=== PATIENT | male | born 1965 | race Caucasian/White ===

== ENCOUNTER 2020-02-15 15:36 | Observation (INO) | payer OTHER, SELFPAY ==
--- NOTE | ~2020-02-15 | XR_ITS ---
EXAMINATION: XR chest 1V portable DATE: 02/15/2020 16:49 INDICATION: COPD. Hypoxia and shortness of breath. TECHNIQUE: frontal view of the chest was obtained. COMPARISON: Chest radiograph dated 09/15/2014 FINDINGS: The lungs remain clear with no focal airspace opacities, pulmonary edema, pleural effusion or pneumot horax. The cardiomediastinal silhouette is normal. Calcified left axillary lymph node consistent with old granulomatous disease. IMPRESSION: 1. No acute cardiopulmonary disease. Reviewed, dictated and finalized at location A. OP APPLICATION DEVELOPER
[2020-02-15 15:44] VITALS: BP 173/94; PULSE 82; RESP 30; TEMP 36.7; O2SAT 100
--- NOTE | 2020-02-15 16:08 | ED.SOB ---
HPI - SOB/Dyspnea General Chief Complaint: Shortness of Breath/Dyspnea Stated Complaint: DIFFICULTY BREATHING Time Seen by Provider: 02/15/20 15:50 Source: patient, EMS, RN notes reviewed and old records reviewed Limitations: no limitations History of Present Illness HPI Narrative: 54-year-old male presents to emergency department for shortness of breath for the past week. Patient states he has felt like this in the past before, unknown cause. He has tried his inhalers at home to help. Patient does have a history of COPD. He has reports some chest tightness. No fever or chills. He does report some runny nose for the past week. No abdominal pain. No nausea or vomiting. Per EMS, patient was satting in the 80s, placed on CPAP with improvement. Related Data Home Medications Medication Instructions Recorded Confirmed albuterol sulfate 1 puff INHALATION PRN PRN 02/15/20 02/15/20 alprazolam 0.5 mg PO TID PRN 02/15/20 02/15/20 aspirin [Adult Aspirin] 81 mg PO DAILY 02/15/20 02/15/20 Allergies Allergy/AdvReac Type Severity Reaction Status Date / Time fexofenadine Allergy Severe Anaphylaxis Verified 02/15/20 19:02 PARMESEAN CHEESE Allergy Intermediate Hives Uncoded 02/15/20 19:41 Review of Systems Review of Systems: Narrative: CONSTITUTIONAL: Denies fever, chills, or sweats. EYES: Denies visual changes, redness, or discharge. ENT: Denies rhinorrhea, congestion, sore throat, or otalgia. CARDIOVASCULAR: Denies chest pain, palpitations, or edema. RESPIRATORY: Denies cough or dyspnea. GASTROINTESTINAL: Denies abdominal pain, nausea, vomiting, or diarrhea. GENITOURINARY: Denies dysuria or hematuria. SKIN: Denies rash or itching. MUSCULOSKELETAL: Denies back pain, joint pain, or myalgia. NEUROLOGIC: Denies headache, numbness, dizziness, or weakness. PSYCHIATRIC: Denies anxiety or depression. All systems reviewed & are unremarkable except as noted in HPI and below (ROS) [facility], LAT[facility] Family History Family History Father Hypertension Mother Hypertension Family history of diabetes mellitus in first degree relative Grandparent Family history of heart disease in male family member before age 55 Social History Social History Smoking packs per day: 1 Smoking cigarettes per day: 20.0 Years smoked: 3 Smoking pack-years: 3.00 Smoking status: Former smoker Second hand tobacco smoke exposure: Yes Smoking end date: 04/13/11 Alcohol intake: current Drinks per week: 1 Substance use: never Other substance usage details: Used to drink half gallon of whiskey a day before my 4 yr ago. Gender identity (if verbalized by the patient): Male Spiritual care concerns: No Exam Narrative: Exam Narrative: GENERAL: Well-appearing, well-nourished. Mild distress HEAD: Normocephalic, atraumatic. EYES: PERRLA and EOMI. ENT: Nares clear, no rhinorrhea or epistaxis. Mucous membranes moist. NECK: Supple. CHEST: Mild respiratory distress, bilateral wheezing. Tachypnea present HEART: Regular rate and rhythm. No murmur heard. Normal peripheral pulses. ABDOMEN: Soft, nontender, nondistended, normal active bowel sounds. EXTREMITIES: Normal range of motion. No edema. SKIN: Warm, dry, no rash. NEURO: No focal deficits. Alert and oriented x3. PSYCH: Normal mood and affect. Course Reevaluation(s) Reevaluation #1: 1710 - re-evaluated pt, breathing improved but patient still wheezing. Patient benefit from observation for further breathing treatments. Consultations Consultation #1: 1713 - discussed case with Hiliary, accepts admission for Dr. Lake Vital Signs Vital signs: Vital Signs Temperature 36.7 C 02/15/20 15:44 Pulse Rate 82 02/15/20 15:44 Respiratory Rate 30 H 02/15/20 15:44 Blood Pressure 173/94 H 02/15/20 15:44 Pulse Oximetry 100 02/15/20 15:44 Temperature 36.1 C L 02/15/20 22:00
[2020-02-15 16:26] LABS: Basophils Absolute Auto 0.1 K/mm3 (0.0-0.1); Basophils Percent Auto 0.7 % (0.2-1.2); Eosinophils Absolute Auto 0.5 K/mm3 (0-0.3); Eosinophils Percent Auto 6.8 % (0-4.4); Hematocrit 47.4 % (42.0-52.0); Hemoglobin 16.2 g/dL (14.0-18.0); Immature Granulocyte Absolute 0.02 K/mm3 (0.00-0.031); Immature Granulocyte Percent A 0.3 % (0-0.5); Lymphocytes Absolute Auto 2.23 K/mm3 (0.9-3.2); Lymphocytes Percent Auto 32.5 % (18.3-44.2); Mean Corpuscular HGB Conc 34.2 g/dl (32-36); Mean Corpuscular Hemoglobin 28.8 pg (26-34); Mean Corpuscular Volume 84.3 fl (80-100); Mean Platelet Volume 11.1 fl (7.4-10.4); Monocytes Absolute Auto 0.7 K/mm3 (0.1-0.6); Monocytes Percent Auto 9.9 % (2.6-8.5); Neutrophils Absolute Auto 3.4 K/mm3 (1.3-6.7); Neutrophils Percent Auto 49.8 % (45.5-73.1); Platelet Count Result 158 k/mm3 (150-375); Red Blood Count 5.62 M/mm3 (4.6-6.20); Red Cell Distribution Width 13.1 % (11.5-14.5); White Blood Count 6.9 K/mm3 (4.5-10.0)
[2020-02-15] MEDS: ONDANSETRON INJ 4 MG/2 ML VIAL IV PUSH (16:27)
[2020-02-15] MEDS: methylPREDNISolone SOD SUCC 125 MG VIAL 80 MG IV PUSH (16:27)
[2020-02-15] MEDS: IPRATROPIUM BR 0.02% INH SOLN 0.5 MG/2.5 ML VIAL INHALATION (16:34)
[2020-02-15] MEDS: ALBUTEROL SULFATE NEB 2.5 MG/0.5 ML INH 10 MG INHALATION (16:34)
[2020-02-15 16:36] VITALS: PULSE 82; RESP 30
[2020-02-15 16:37] LABS: Alanine Aminotransferase 23 U/L (4-50); Albumin Level 4.4 g/dL (3.5-5.1); Alkaline Phosphatase 51 U/L (38-126); Anion Gap 8 mmol/L (8-16); Aspartate Amino Transferase 28 U/L (17-59); Bilirubin,Total 0.4 mg/dL (0.2-1.3); Blood Urea Nitrogen 14 mg/dL (9-20); Calcium 9.3 mg/dL (8.4-10.2); Carbon Dioxide 34 mmol/L (22-30); Chloride 101 mmol/L (98-107); Estimated CRCL calculation 78 ml/min; Estimated Glomerular Filt Rate > 60; Glucose 129 mg/dL (75-110); Potassium 3.8 mmol/L (3.4-5.0); Sodium 143 mmol/L (137-145)
[2020-02-15 16:49] LABS: NT Pro B Type Natriuretic Pept 79 PG/ML (5-100); Troponin I < 0.012 ng/mL (0.000-0.034)
[2020-02-15 18:06] VITALS: BP 134/78; PULSE 91; RESP 18; O2SAT 94
--- NOTE | 2020-02-15 18:53 | PC.NURSE ---
This patient, Tenzin Vitale, was admitted to Medical Room 349-01. Patient/family oriented to hospital policies and general routines including ID bracelet, bed and alarms, visiting hours, pain management, procedures, bathroom and other care routines, personal items, smoking policy, room service/diet, and visiting hours. Information on how to activate the Rapid Response Team has been discussed. Patient/Family are encouraged to report perceived risks to care and to ask questions if they do not understand what they are told or what they should do.
[2020-02-15 19:02] VITALS: BP 144/64; PULSE 73; RESP 20; TEMP 36.1; O2SAT 99; BMI 29.7
[2020-02-15 20:00] VITALS: O2SAT 98
[2020-02-15 22:00] VITALS: BP 130/74; PULSE 67; RESP 16; TEMP 36.1; O2SAT 97
[2020-02-16 04:20] VITALS: BP 144/68; PULSE 65; RESP 20; TEMP 36.1; O2SAT 100
--- NOTE | 2020-02-16 05:18 | PM.IMHP ---
H&P: HPI History of Present Illness Date/Time: 02/16/20 05:18 Chief complaint: COPD exacerbation Narrative: Tenzin Vitale is a 54 year old male with past medical history of COPD, anxiety, bicuspid aortic valve presents to the ED with complaints of dyspnea. 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 He states he rarely uses his rescue inhaler Last use was 6 months ago. He denies fever, chills, nausea, vomiting, diarrhea. He denies sick contacts or recent travels. He denies allergies. He thinks a precipitating event was a woman with strong perfume walked past him triggering his COPD. He quit smoking 5 years ago when his . In the ED: Patient was given Solu-Medrol 80 mg, Zofran 4 mg, ipratropium /albuterol with good relief. Patient was admitted for COPD exacerbation. Review of Systems Review of Systems: Narrative: Constitutional: No Fever, No Chills, No Night Sweats, No Fatigue, No Malaise ENT/Mouth: No Hearing Changes, No Ear Pain, No Nasal Congestion, No Sinus Pain, No Hoarseness, No sore throat, No Rhinorrhea, No Swallowing Difficulty Eyes: No Eye Pain, No Redness, No Vision Changes Cardiovascular: No Chest Pain, No Palpitations, No Dyspnea on Exertion, No Orthopnea, No Claudication, No Edema Respiratory: Endorses wheezing, dyspnea. Denies coughm Gastrointestinal: No Nausea, No Vomiting, No Diarrhea, No Constipation, No Abdominal Pain, No Heartburn, No Hematochezia, No Melena Genitourinary: No Dysuria, No Urinary Frequency, No Hematuria, No Urinary Incontinence, No Urgency Musculoskeletal: No Arthralgias, No Myalgias, No Joint Swelling, No Joint Stiffness, No Back Pain Skin: No Skin Lesions, No Pruritis, No Hair Changes Neuro: No Weakness, No Numbness, No Paresthesias, No Loss of Consciousness, No Syncope, No Dizziness, No Headache Psych: No Anxiety/Panic, No Depression, No Insomnia Heme: No Bruising, No Bleeding Lymph: No Adenopathy Endocrine: No Polyuria, No Polydipsia, No Temperature Intolerance PMFSH Past Medical History Medical History (Updated 02/16/20 @ 05:39 by Yusef Rivera DO) Anxiety Bicuspid aortic valve COPD (chronic obstructive pulmonary disease) Surgical History Surgical History (Updated 02/16/20 @ 05:40 by Yusef Rivera DO) Status post carpal tunnel release of both wrists Status post inguinal hernia repair Family History Family History Father Hypertension Mother Hypertension Family history of diabetes mellitus in first degree relative Grandparent Family history of heart disease in male family member before age 55 Social History Social History (Updated 02/16/20 @ 05:41 by Yusef Rivera DO) Social History: , now working 16 hours a day Thursday through Thursday Smoking packs per day: 1 Smoking cigarettes per day: 20.0 Years smoked: 3 Smoking pack-years: 3.00 Smoking status: Former smoker Second hand tobacco smoke exposure: Yes Smoking end date: 04/13/11 Alcohol intake: current Drinks per week: 1 Substance use: never Other substance usage details: Used to drink half gallon of whiskey a day before my 4 yr ago. Living arrangements: alone Gender identity (if verbalized by the patient): Male Spiritual care concerns: No Meds Home Medications and Allergies Home Medications Medication Instructions Recorded Confirmed Type budesonide-formoterol HFA 80 2 puff INHALATION Q12H #10.2 gm 12/26/19 02/15/20 Rx mcg-4.5 mcg/actuation aerosol inhaler albuterol sulfate 1 puff INHALATION PRN PRN 02/15/20 02/15/20 History alprazolam 0.5 mg PO TID PRN 02/15/20 02/15/20 History aspirin [Adult Aspirin] 81 mg PO DAILY 02/15/20 02/15/20 History Allergies Allergy/AdvReac Type Severity Reaction Status Date / Time fexofenadine Allergy Severe Anaphylaxis Verified 02/15/20 19:02 SARBJIT
[2020-02-16] MEDS: methylPREDNISolone SOD SUCC 40 MG VIAL IV PUSH ×3 (06:36→23:59)
[2020-02-16] MEDS: ALBUTEROL SULFATE (*SP) AEROSOL 1 PUFF 2 PUFF INHALATION ×4 (07:47→21:15)
[2020-02-16 08:10] VITALS: O2SAT 98
[2020-02-16] MEDS: ENOXAPARIN 40 MG/0.4 ML SYRINGE SUB-Q (08:11)
[2020-02-16] MEDS: ASPIRIN 81 MG CHEWABLE TABLET PO (08:11)
[2020-02-16] MEDS: AZITHROMYCIN 250 MG TABLET 500 MG PO (08:40)
[2020-02-16 12:12] VITALS: PULSE 68; O2SAT 98
--- NOTE | 2020-02-16 12:12 | PC.NURSE ---
Patient discussed code status changes with transplant case manager; Karishma notified. Patient requests to continue confidential status, however, is witnessed on his cell phone continuously during rounds.
--- NOTE | 2020-02-16 12:22 | PCRCNOTE ---
pt did not receive spirva at 0747 due to med not available yet. Other inhalers given.
--- NOTE | 2020-02-16 12:59 | PM.IMPN ---
Progress Note: A&P Assessment and Plan (1) COPD exacerbation: Code(s): J44.1 - Chronic obstructive pulmonary disease with (acute) exacerbation Status: Acute Assessment and Plan: He has a hx of COPD but rarely uses his rescue inhaler. He ran out of his symbicort 3-4 days ago. He reported onset of dyspnea for 1 week which was worsening. He noted that he thinks smelling strong perfume precipitated this episode. He has a 40 pack-year smoking hx but quit smoking 5 years ago when his . Clinical presentation is consistent with COPD exacerbation. CXR showed no evidence of consolidation or other acute process. He has significant wheezing throughout the lungs. He already feels much better. Dyspnea has resolved and he was ambulating in the room without difficulty. He was weaned from 4 liters to 2 liters. Plan to continue IV solu-medrol. Will taper to 40mg q6hr. Continue azithromycin. Continue albuterol and add spiriva. Add mucinex. Continue supplemental oxygen as needed to maintain oxygen saturation>90%. Wean as tolerated. (2) Acute respiratory failure with hypoxia: Code(s): J96.01 - Acute respiratory failure with hypoxia Status: Acute Assessment and Plan: Secondary to COPD exacerbation. He was requiring 4 liters initially and has already been weaned to 2 liters. He notes that his dyspnea has improved significantly. Continue treatment of COPD exacerbation with plan as above. Continue supplemental oxygen as needed to maintain SpO2 >90%. Wean as tolerated. (3) Anxiety: Code(s): F41.9 - Anxiety disorder, unspecified Status: Inactive Assessment and Plan: Continue home alprazolam as needed. Subjective Date/time seen: 02/16/20 12:59 Mr. Vitale is a very pleasant 54 y.o. male with PMH significant for COPD, bicuspid aortic valve, and anxiety who is seen in follow-up for COPD exacerbation. He feels much better today. He notes that he was ambulating in the room and showered and dyspnea was significantly improved. He reports intermittent cough approximately once per hour and tries to produce sputum but has been unable to thus far. He is not having subjective fever or chills. He denies chest pain. He is not having any nausea, vomiting, or abdominal pain. He is tolerating his diet. Bowels are regular. Review of Systems Review of Systems: All systems reviewed & are unremarkable except as noted in HPI and below Exam Narrative: Exam Narrative: General: Pleasant, well-developed, well-nourished 54 y.o. male lying semi-recumbent in bed in no acute distress. HEENT: Normocephalic and atraumatic. Oral mucosa moist. Cardiac: Regular rate and rhythm. S1 and S2 normal. Lungs: Tolerating 2 liters per nasal cannula without increased work of breathing and oxygen saturation of 97%. Lungs with diffuse inspiratory and expiratory wheezes. Abdomen: Bowel sounds normoactive. Abdomen soft, non-distended, and non-tender. Extremities: No lower extremity edema or calf tenderness. DP and PT 2+ bilaterally. Neurological: Alert and oriented x4. No focal neurological deficits noted to casual converstaion. Speech is clear. Skin: Warm and dry. Psychiatric: Very pleasant. Good judgment and insight. Affect cheerful. Objective Data Vital Signs Vital Signs: Vital Signs - 24 hr 02/15/20 15:44 02/15/20 16:36 02/15/20 18:06 Temperature 98.1 F Pulse Rate 82 82 91 Respiratory Rate 30 H 30 H 18 Blood Pressure 173/94 H 134/78 Pulse Oximetry 100 94 02/15/20 19:02 02/15/20 20:00 02/15/20 22:00 Temperature 97.0 F L 97 F L Pulse Rate 73 67 Respiratory Rate 20 16 Blood Pressure 144/64 H 130/74 Pulse Oximetry 99 98 97 02/16/20 04:20 02/16/20 08:10 02/16/20 12:12 Temperature 97 F L Pulse Rate 65 68 Respiratory Rate 20 Blood Pressure 144/68 H Pulse Oximetry 100 98 98 Intake/Output Intake/Output: Intake & Output 02/13/20 02/14/20 02/15/20 02/16/20 23:59 23:59 23:59 23
[2020-02-16 14:00] VITALS: BP 142/68; PULSE 79; RESP 18; TEMP 36.7; O2SAT 97
--- NOTE | 2020-02-16 14:39 | ECG_ITS ---
Measurements Intervals [place] Rate: 75 P: 64 [place]: 149 QRS: -8 QRSD: 88 T: 7 QT: 381 QTc: 427 Interpretive Statements SINUS RHYTHM BORDERLINE T WAVE ABNORMALITY- INFERIOR LEADS BASELINE ARTIFACT- AVF, V4 BORDERLINE ECG Electronically Signed On 02-16-2020 14:56:58 [employer] by Ta Borjas D.O.
[2020-02-16 20:00] VITALS: BP 140/88; PULSE 77; RESP 18; TEMP 36.4; O2SAT 96
[2020-02-16 21:20] VITALS: O2SAT 96
[2020-02-16] MEDS: guaiFENesin 12 HR 600 MG TABCR 1200 MG PO (22:37)
[2020-02-16] MEDS: ALPRAZolam (*CRX) 0.5 MG TABLET PO (23:59)
[2020-02-17 04:27] VITALS: BP 127/88; PULSE 65; RESP 16; TEMP 36.1; O2SAT 97
[2020-02-17 06:09] LABS: Hemoglobin 15.5 g/dL (14.0-18.0); Mean Corpuscular HGB Conc 34.4 g/dl (32-36); Mean Corpuscular Hemoglobin 29.4 pg (26-34); Mean Corpuscular Volume 85.4 fl (80-100); Mean Platelet Volume 11.6 fl (7.4-10.4); Platelet Count Result 145 k/mm3 (150-375); Red Blood Count 5.27 M/mm3 (4.6-6.20); White Blood Count 13.1 K/mm3 (4.5-10.0)
[2020-02-17] MEDS: methylPREDNISolone SOD SUCC 40 MG VIAL IV PUSH ×2 (06:09→13:04)
[2020-02-17 06:23] LABS: Anion Gap 6 mmol/L (8-16); Blood Urea Nitrogen 14 mg/dL (9-20); Calcium 9.4 mg/dL (8.4-10.2); Carbon Dioxide 29 mmol/L (22-30); Chloride 103 mmol/L (98-107); Estimated CRCL calculation 108 ml/min; Estimated Glomerular Filt Rate > 60; Glucose 169 mg/dL (75-110); Magnesium 2.3 mg/dL (1.6-2.3); Potassium 4.4 mmol/L (3.4-5.0); Sodium 138 mmol/L (137-145)
[2020-02-17] MEDS: ALBUTEROL SULFATE (*SP) AEROSOL 1 PUFF 2 PUFF INHALATION ×2 (07:29→11:21)
[2020-02-17 07:32] VITALS: O2SAT 92
[2020-02-17] MEDS: AZITHROMYCIN 250 MG TABLET PO (09:27)
[2020-02-17] MEDS: ENOXAPARIN 40 MG/0.4 ML SYRINGE SUB-Q (09:27)
[2020-02-17] MEDS: guaiFENesin 12 HR 600 MG TABCR 1200 MG PO (09:27)
[2020-02-17] MEDS: ASPIRIN 81 MG CHEWABLE TABLET PO (09:28)
--- NOTE | 2020-02-17 13:42 | PM.DS ---
DS: Admitting Diagnosis Admitting Diagnosis Admitting Diagnosis: COPD exacerbation DS: Discharge Diagnosis Discharge Diagnosis (1) COPD exacerbation: Code(s): J44.1 - Chronic obstructive pulmonary disease with (acute) exacerbation Status: Acute Assessment and Plan: Discharge Summary (Date of service 02/17/20): Mr. Vitale is a very pleasant 54 y.o. male with PMH significant for COPD, bicuspid aortic valve, and anxiety who presented to the emergency department with dyspnea for 1 week which was worsening. He has a hx of COPD but noted that he rarely uses his rescue inhaler prior to this acute episode. He ran out of his symbicort 3-4 days ago. He noted that he thinks smelling strong perfume precipitated this episode. He has a 40 pack-year smoking hx but quit smoking 5 years ago when his . Initial workup in the emergency department included CXR which showed no evidence of consolidation or other acute process. BMP showed CO2 34 and labs were otherwise unremarkable. He was treated with Solu-Medrol 80 mg, Zofran 4 mg, ipratropium /albuterol with good relief in the emergency department. He was admitted to the hospitalist under observation for COPD exacerbation. Solu-medrol was tapered and he was treated with azithromycin and bronchodilators. Wheezing resolved and he was ambulating in the room and halls without any shortness of breath. He was weaned from 4 liters to room air. He felt much better and requested to go home. He was discharged in stable condition on the afternoon of 02/17/20. He was advesd to continue a prednisone taper and finish his course of azithromycin. Worrisome signs and symptoms requiring return to the emergency department were discussed and he verbalized understanding. (2) Acute respiratory failure with hypoxia: Code(s): J96.01 - Acute respiratory failure with hypoxia Status: Acute Assessment and Plan: Secondary to COPD exacerbation. He required 4 liters initially and was weaned to room air. He had no further dyspnea and stated he felt better than he had in weeks. (3) Anxiety: Code(s): F41.9 - Anxiety disorder, unspecified Status: Inactive Assessment and Plan: Home alprazolam was continued as needed. DS: Summary Time Spent with Patient Time attestation: Total time spent providing and/or coordinating discharge services: 40 minutes Exam Narrative: Exam Narrative: Vitals at presentation: Temp Pulse Resp BP Pulse Ox 98.1 F 82 30 H 173/94 H 100 02/15/20 15:44 02/15/20 15:44 02/15/20 15:44 02/15/20 15:44 02/15/20 15:44 Vitals at discharge: Temp Pulse Resp BP Pulse Ox 96.9 F L 75 16 140/77 95 02/17/20 14:21 02/17/20 14:21 02/17/20 14:21 02/17/20 14:21 02/17/20 14:21 General: Pleasant, well-developed, and well-nourished 54 y.o. male up in the room walking around in no acute distress. HEENT: Normocephalic and atraumatic. Oral mucosa moist. Cardiac: Regular rate and rhythm. S1 and S2 normal. Lungs: On room air. Respirations even and non-labored without increased work of breathing. Lungs are clear to auscultation without wheezes, rhonchi, or rales. Abdomen: Bowel sounds are normoactive. Abdomen is soft, non-distended, and non-tender. Extremities: No lower extremity edema or calf tenderness. DP and PT 2+ bilaterally. Neurological: Alert. Exam non-focal. Speech is clear. Skin: Warm and dry. Psychiatric: Very pleasant. Good judgment and insight. DS: Data Data Completed and Pending Labs on day of discharge: Labs from last 24 hours 02/17/20 02/17/20 05:40 05:40 WBC 13.1 H RBC 5.27 Hgb 15.5 Hct 45.0 MCV 85.4 MCH 29.4 MCHC 34.4 RDW 13.0 Plt Count 14
[2020-02-17 13:50] VITALS: PULSE 88; O2SAT 95
[2020-02-17 13:55] VITALS: PULSE 112; O2SAT 92
[2020-02-17 14:05] VITALS: PULSE 84; O2SAT 95
--- NOTE | 2020-02-17 14:18 | PCRCNOTE ---
HOME O2 EVAL COMPLETE, NO REQUIREMENTS
[2020-02-17 14:21] VITALS: BP 140/77; PULSE 75; RESP 16; TEMP 36.1; O2SAT 95
== END 2020-02-17 15:20 | disposition home or self-care (01) ==
LOC: ANHED 17:27 → ANH3MED 18:16
PROVIDERS: Physician Assistant; Admitting Provider Internal Medicine; Emergency Provider Emergency Medicine; PCP Family Medicine; Visit Provider Family Medicine
DX: J44.1 Chronic obstructive pulmonary disease with (acute) exacerbation (principal); J96.01 Acute respiratory failure with hypoxia; F41.9 Anxiety disorder, unspecified; Q23.1 Congenital insufficiency of aortic valve; Z79.82 Long term (current) use of aspirin; Z79.899 Other long term (current) drug therapy; Z87.891 Personal history of nicotine dependence
CPT/HCPCS: 36415; 71045; 80048; 80053; 83735; 83880; 84484; 85025; 85027; 93005; 94618; 94640; 96372; 96374; 96375; 96376; 99285; A9270; G0378; J1650; J2405; J2920; J2930

== ENCOUNTER 2020-10-18 12:47 | Emergency (ER) | payer SELFPAY ==
[2020-10-18 12:50] VITALS: BP 152/87; PULSE 59; RESP 16; TEMP 36.9; O2SAT 99
[2020-10-18] MEDS: ASPIRIN 81 MG CHEWABLE TABLET 324 MG PO (13:00)
--- NOTE | 2020-10-18 13:00 | ED.WEAKNESS ---
HPI - Weakness General Chief complaint: Suspected CVA Stated complaint: POS stroke/slurring words/lt arm numbness Source: patient and RN notes reviewed Limitations: no limitations History of Present Illness HPI Narrative: The right-handed COPD patient -a ex-cigarette smoker/drinker/ pot smoker without regular doctor- presents with lateralizing weakness. Patient states he awoke with the onset of left-sided diffuse weakness and slurred speech; last known well was last evening and his partner says he is walking abnormally. No fever, injury, head?neck?abdominal pain; he does have left chest pain This was associated with left chest pain that was present there in the morning also that is sharp, lasted a half hour , radiates to his back, first onset approximately 12 hours ago that awoke him from sleep. No meds for HTN, HLD, AODM, he had stress test years ago that was noncontributory. Related Data Home Medications Medication Instructions Recorded Confirmed aspirin 81 mg PO DAILY 02/15/20 10/18/20 Allergies Allergy/AdvReac Type Severity Reaction Status Date / Time fexofenadine Allergy Severe Anaphylaxis Verified 10/18/20 14:09 Review of Systems Review of Systems: Narrative: The patient has been informed that they may have pre-hypertension or Hypertension based on a BP reading in the department. I recommend that the patient call the primary care provider listed on their discharge instructions or a physician of their choice this week to arrange follow up for further evaluation of possible pre-hypertension or Hypertension General/Constitutional: No weight loss,fever Eyes: N0: Redness,discharge Ears/Nose/Throat: No: Epistaxis,ear discharge Respiratory: Denies: Hemoptysis Gastrointestinal: No Vomiting, Bleeding-rectal Skin: No Lumps, eruption Neurologic: No Focal Weakness,Sz Hematologic: Denies: Petechiae/Purpura Psychiatric: No: Suicida ideationl All Other Systems: Reviewed and Negative [facility] Past Medical History Medical History (Updated 10/28/20 @ 17:15 by Ben Panchal MD) Anxiety Bicuspid aortic valve BMI 28.0-28.9,adult BMI 29.0-29.9,adult COPD (chronic obstructive pulmonary disease) Surgical History Surgical History Status post carpal tunnel release of both wrists Status post inguinal hernia repair Family History Family History (Updated 10/18/20 @ 18:25 by Keisha Edwards RN) Father Hypertension Mother Family history of diabetes mellitus in first degree relative Hypertension Acute myocardial infarction Chronic obstructive pulmonary disease Diabetes mellitus Grandparent Family history of heart disease in male family member before age 55 Cerebrovascular accident Sibling Diabetes mellitus Sibling Asthma Chronic obstructive pulmonary disease Social History Social History Social History: , now working 16 hours a day Thursday through Thursday Smoking packs per day: 1.5 Smoking cigarettes per day: 30.0 Years smoked: 40 Smoking pack-years: 60.00 Smoking status: Former smoker Tobacco type: cigarettes Second hand tobacco smoke exposure: Yes Smoking end date: 04/13/11 Alcohol intake: former Drinks per week: 1 Substance use: current Substance use type: marijuana and crack/cocaine Other substance usage details: Used to drink half gallon of whiskey a day before my 4 yr ago. Gender identity (if verbalized by the patient): Male Spiritual care concerns: No Comments At time of signature, agree with nursing past medical, surgical, social and family history. There is no relevant family history pertinent to the presenting complaint Exam Narrative: Exam Narrative: General Appearance: Obese, No distress, hemiparetic NIHSS score -6 EYE: PERRLA, Conjunctiva clear, EOMI Neurological: A&O x3, CN II-X intact EX cranial nerv
[2020-10-18 13:36] VITALS: O2SAT 99
== END 2020-10-18 13:05 | disposition short-term general hospital (02) ==
PROVIDERS: Emergency Provider Emergency Medicine; PCP Family Medicine
DX: I63.9 Cerebral infarction, unspecified (principal); R07.89 Other chest pain; Z87.891 Personal history of nicotine dependence; J44.9 Chronic obstructive pulmonary disease, unspecified; Z79.82 Long term (current) use of aspirin
CPT/HCPCS: A9270

== ENCOUNTER 2020-10-18 13:22 | Observation (INO) | payer OTHER, SELFPAY ==
--- NOTE | ~2020-10-18 | CT_ITS ---
EXAMINATION: CTA brain carotid EXAM DATE: 10/18/2020 14:34 INDICATION: Left side weakness, slurred speech . TECHNIQUE: Noncontrast head CT. Spiral CTA of the carotid arteries was performed with intravenous i njection 100 cc of Omnipaque 350. Axial, coronal, sagittal reformatted images reviewed. Additional r eformatted images created on dedicated 3-D workstation. NASCET comparable standard used to assess th e degree of arterial stenosis. Spiral CT angiogram cerebral arteries performed with the same intrave nous injection of contrast. Source images of the brain CTA transferred to dedicated workstation for 3 -D rotational image creation. Coronal, sagittal maximum intensity pixel images also reviewed. The d ose-length product (DLP) for this examination was 1844.25 mGy-cm. The exposure was tailored accordi ng to patient size, and iterative reconstruction (ASIR) was used as additional dose reduction techniq ue. There is no prior study for comparison. FINDINGS: Mild bilateral carotid bulb arterial sclerosis with 0% stenosis bilaterally. Mild bilateral carotid siphon arterial sclerosis without stenosis. Left vertebral artery dominant. There is no bustillos tid or vertebral basilar arterial dissection or fibromuscular dysplasia. There are no cerebral artery aneurysms. There is symmetric cerebral artery arborization. The sagittal, transverse and sigmoid sin uses enhance normally, no venous sinus thrombosis. Internal cerebral veins also enhance normally. There is no acute intraparenchymal hemorrhage. No evidence of intraparenchymal brain mass lesion. N o evidence of acute infarction. There is no mass effect or midline shift. There is no obstructive hyd rocephalus suspected. There are no extra-axial collections. Incidental Findings: Mild cervical spondylosis. IMPRESSION: 1. No acute carotid or intracranial findings. 2. Bilateral carotid 0% stenosis. Reviewed, dictated and finalized at location B.
--- NOTE | ~2020-10-18 | XR_ITS ---
EXAMINATION: XR chest 1V portable DATE: 10/18/2020 13:45 INDICATION: Chest pain. TECHNIQUE: A single frontal view of the chest was obtained. COMPARISON: Chest single view 02/15/2020 FINDINGS: The chest demonstrates clear lungs without pneumonia, pleural effusion, or pneumothorax. Th e heart size is normal. IMPRESSION: 1. No acute cardiopulmonary disease. Reviewed, dictated and finalized at location A.
--- NOTE | ~2020-10-18 | MR_ITS ---
EXAMINATION: MR brain/brain stem wo/w con EXAM DATE: 10/19/2020 10:15 INDICATION: Left side hemiparesis, slurred speech. TECHNIQUE: Magnetic resonance imaging (MRI) of the brain/brain stem obtained without contrast. Sagit van T1, axial diffusion, gradient echo (T2*), T1, T2, FLAIR sequences obtained. Patient was then inj ected with 18 cc intravenous Multihance contrast. Axial and coronal postcontrast T1 weighted sequence s obtained. There is no prior study for comparison. FINDINGS: There are no areas of restricted diffusion to suggest acute infarction. There is no acute hemorrhage seen on the T2*, a hemosiderin sensitive sequence. No intraparenchymal brain mass. The ve ntricles are normal in size. There are no extra-axial collections. Flow voids are seen in the cereb ral arteries on the T2-weighted sequences consistent with their expected patency. The orbits are unr emarkable. Soft tissue is unremarkable. There are no areas of abnormal enhancement on the postcont rast images. IMPRESSION: No acute intracranial findings. Reviewed, dictated and finalized at location B.
--- NOTE | 2020-10-18 12:59 | ECG_ITS ---
Measurements Intervals [place] Rate: 63 P: 66 [place]: 147 QRS: 12 QRSD: 97 T: 47 QT: 384 QTc: 395 Interpretive Statements SINUS RHYTHM INCOMPLETE RIGHT BUNDLE BRANCH BLOCK MINIMAL Q WAVES- HIGH LATERAL LEADS PEAKED T WAVES- CONSIDER HYPERKALEMIA OR ISCHEMIA BASELINE ARTIFACT- II, III, AVR, AVL, AVF ABNORMAL ECG Electronically Signed On 10-19-2020 15:58:16 CDT by Ta Borjas D.O.
[2020-10-18 13:34] VITALS: BP 157/99; PULSE 63; RESP 19; TEMP 37.1; O2SAT 98
--- NOTE | 2020-10-18 13:35 | ECG_ITS ---
Measurements Intervals [place] Rate: 59 P: 42 [place]: 157 QRS: -3 QRSD: 88 T: 32 QT: 384 QTc: 383 Interpretive Statements SINUS BRADYCARDIA INCOMPLETE RIGHT BUNDLE BRANCH BLOCK BORDERLINE T WAVE ABNORMALITY- INFERIOR LEADS BORDERLINE ECG Electronically Signed On 10-18-2020 15:29:12 CDT by Ta Borjas D.O.
--- NOTE | 2020-10-18 13:38 | ED.NEUROSD ---
HPI - Neuro Symptoms/Deficit General Chief Complaint: Suspected CVA Stated Complaint: CP/STROKE LIKE SYMPTOMS X 1 DAY Time Seen by Provider: 10/18/20 13:25 Source: patient and RN notes reviewed Mode of arrival: EMS Limitations: no limitations History of Present Illness HPI Narrative: This is a 55 year old male with history of COPD and anxiety who presents for evaluation of left side weakness and chest pain. Patient states he woke up this morning at 2 am with left chest pain, left leg and arm numbness. He also reports dizziness and nausea. He has continue to having intermittent left chest pain that radiates to his back. He states his pain last for 30 minutes and it has currently resolved. He also reports left arm weakness and left leg weakness with slurred speech. He was referred to ER today from [facility]. HE states his symptoms have improved . He states years ago he had similar symptoms that resolved so he was not evaluated. HE denies cardiac history. Related Data Home Medications Medication Instructions Recorded Confirmed aspirin 81 mg PO DAILY 02/15/20 10/18/20 Allergies Allergy/AdvReac Type Severity Reaction Status Date / Time fexofenadine Allergy Severe Anaphylaxis Verified 10/18/20 14:09 Review of Systems Review of Systems: Narrative: CONSTITUTIONAL: Denies fever, chills, or sweats. EYES: Denies visual changes, redness, or discharge. ENT: Denies rhinorrhea, congestion, sore throat, or otalgia. CARDIOVASCULAR: Denies palpitations, or edema. RESPIRATORY: Denies cough or dyspnea. GASTROINTESTINAL: Denies abdominal pain, vomiting, or diarrhea. GENITOURINARY: Denies dysuria or hematuria. SKIN: Denies rash or itching. MUSCULOSKELETAL: Denies back pain, joint pain, or myalgia. NEUROLOGIC: Positive for headache, numbness, and weakness. PSYCHIATRIC: Denies anxiety or depression. All systems reviewed & are unremarkable except as noted in HPI and below PMFSH Past Medical History Medical History Anxiety Bicuspid aortic valve BMI 28.0-28.9,adult BMI 29.0-29.9,adult COPD (chronic obstructive pulmonary disease) Surgical History Surgical History Status post carpal tunnel release of both wrists Status post inguinal hernia repair Family History Family History (Updated 10/18/20 @ 18:25 by Keisha Edwards RN) Father Hypertension Mother Family history of diabetes mellitus in first degree relative Hypertension Acute myocardial infarction Chronic obstructive pulmonary disease Diabetes mellitus Grandparent Family history of heart disease in male family member before age 55 Cerebrovascular accident Sibling Diabetes mellitus Sibling Asthma Chronic obstructive pulmonary disease Social History Social History Social History: , now working 16 hours a day Thursday through Thursday Smoking packs per day: 1.5 Smoking cigarettes per day: 30.0 Years smoked: 40 Smoking pack-years: 60.00 Smoking status: Former smoker Tobacco type: cigarettes Second hand tobacco smoke exposure: Yes Smoking end date: 04/13/11 Alcohol intake: former Drinks per week: 1 Substance use: current Substance use type: marijuana and crack/cocaine Other substance usage details: Used to drink half gallon of whiskey a day before my 4 yr ago. Gender identity (if verbalized by the patient): Male Spiritual care concerns: No Exam Narrative: Exam Narrative: GENERAL: Well-appearing, well-nourished, and in no acute distress. HEAD: Normocephalic, atraumatic EYES: PERRLA and EOMI, conjunctiva clear without discharge THROAT:Mucous membranes moist, Oropharynx normal without erythema, exudate, peritonsillar swelling or fluctuance NECK: Supple, without lymphadenopathy or mass RESPIRATORY: No respiratory distress, Air
[2020-10-18 13:53] LABS: Basophils Percent Auto 0.6 % (0.2-1.2); Eosinophils Absolute Auto 0.2 K/mm3 (0-0.3); Eosinophils Percent Auto 3.2 % (0-4.4); Hematocrit 51.3 % (42.0-52.0); Immature Granulocyte Absolute 0.03 K/mm3 (0.00-0.031); Immature Granulocyte Percent A 0.4 % (0-0.5); Lymphocytes Absolute Auto 1.41 K/mm3 (0.9-3.2); Lymphocytes Percent Auto 19.4 % (18.3-44.2); Mean Corpuscular HGB Conc 33.1 g/dl (32-36); Mean Corpuscular Hemoglobin 28.3 pg (26-34); Mean Corpuscular Volume 85.4 fl (80-100); Mean Platelet Volume 11.5 fl (7.4-10.4); Monocytes Absolute Auto 0.7 K/mm3 (0.1-0.6); Monocytes Percent Auto 9.4 % (2.6-8.5); Neutrophils Absolute Auto 4.9 K/mm3 (1.3-6.7); Platelet Count Result 167 k/mm3 (150-375); Red Blood Count 6.01 M/mm3 (4.6-6.20); White Blood Count 7.3 K/mm3 (4.5-10.0)
[2020-10-18 14:03] VITALS: BP 170/86; PULSE 66; PULSE 67; RESP 17; RESP 21; TEMP 36.8; O2SAT 100
[2020-10-18 14:03] LABS: Anion Gap 8 mmol/L (8-16); Blood Urea Nitrogen 11 mg/dL (9-20); Carbon Dioxide 29 mmol/L (22-30); Chloride 102 mmol/L (98-107); Estimated CRCL calculation 92 ml/min; Estimated Glomerular Filt Rate > 60; Glucose 103 mg/dL (75-110); Potassium 4.4 mmol/L (3.4-5.0); Sodium 139 mmol/L (137-145)
[2020-10-18 14:05] LABS: Prothrombin Time 13.2 Seconds (11.1-14.7)
[2020-10-18 14:06] LABS: Partial Thromboplastin Time 29.6 SECONDS (22.3-36.8)
[2020-10-18 14:15] LABS: Troponin I < 0.012 ng/mL (0.000-0.034)
[2020-10-18] MEDS: ASPIRIN 81 MG CHEWABLE TABLET 324 MG PO (15:34)
[2020-10-18 17:08] VITALS: BMI 29.5
[2020-10-18 17:09] VITALS: BP 149/135; PULSE 62; RESP 12; TEMP 36.6; O2SAT 100
[2020-10-18 18:00] VITALS: PULSE 96
[2020-10-18 18:47] LABS: Troponin I < 0.012 ng/mL (0.000-0.034)
[2020-10-18 20:00] VITALS: BP 139/70; PULSE 80; PULSE 90; RESP 13; TEMP 36.6; O2SAT 97
[2020-10-18 20:09] LABS: Troponin I < 0.012 ng/mL (0.000-0.034)
--- NOTE | 2020-10-18 22:41 | PM.IMHP ---
H&P: HPI History of Present Illness Date/Time: 10/18/20 22:41 Chief Complaint: Chest pain Narrative: This is a 55-year-old male past medical history significant for COPD / asthma, generalized anxiety disorder. Patient presented to the emergency room after he had an episode at around 3:00 a.m. in the morning when he woke up and he was drenched in sweat he had chest pain and numbness that lasted for a few minutes he decided to come to the emergency room later in the day. Patient has been his usual state of health issues however patient states that he has not been able to sleep more than 3-4 hours a day. He denies any shortness of breath cough sputum production fevers rigors or chills no dizziness no syncope no near syncope no lightheadedness no nausea no vomiting no diarrhea no abdominal pain. Patient is a former smoker but quit for years ago. He admitted to doing cocaine 4 days ago as well. Preliminary workup was essentially nonrevealing patient has been placed in observation status. Review of Systems Review of Systems: Narrative: CHEST PAIN AND RIGHT-SIDED ARM AND LEG NUMBNESS Constitutional: Constitutional: Denies chills, Reports difficulty sleeping, Denies fatigue, Denies fever(s), Denies lethargy, Denies malaise, Reports night sweats and Denies weakness Eyes: Eyes: Denies diplopia ENT: Denies nasal congestion, Denies nasal discharge and Denies nasal obstruction Cardiovascular: Cardiovascular: Reports chest pain at rest, Reports diaphoresis, Denies irregular heart rhythm, Denies claudication, Denies lightheadedness, Denies radiating jaw, neck or arm pain, Denies palpitations and Denies dyspnea Respiratory: Respiratory: Denies cough, Denies dyspnea and Denies wheezing Gastrointestinal: Gastrointestinal: Denies nausea and Denies vomiting Genitourinary: Genitourinary: Reports no additional male genitourinary complaints Musculoskeletal: Musculoskeletal: Reports no additional musculoskeletal complaints Integumentary/Breasts: Skin/Breast: Reports system reviewed and no additional complaints, except as docu Neurologic: Reports system reviewed and no additional complaints, except as documented Psychiatric: Psychiatric: Reports panic attacks Endocrine: Endocrine: Reports no additional endocrine complaints Hematologic/Lymphatic: Hematologic/Lymphatic: Reports no additional hematologic/lymphatic complaints Allergic/Immunologic: Allergic/Immunologic: Reports no additional allergic/immunologic complaints PMFSH Past Medical History Medical History Anxiety Bicuspid aortic valve BMI 28.0-28.9,adult BMI 29.0-29.9,adult COPD (chronic obstructive pulmonary disease) Surgical History Surgical History Status post carpal tunnel release of both wrists Status post inguinal hernia repair Family History Family History (Updated 10/18/20 @ 18:25 by Keisha Edwards RN) Father Hypertension Mother Family history of diabetes mellitus in first degree relative Hypertension Acute myocardial infarction Chronic obstructive pulmonary disease Diabetes mellitus Grandparent Family history of heart disease in male family member before age 55 Cerebrovascular accident Sibling Diabetes mellitus Sibling Asthma Chronic obstructive pulmonary disease Social History Social History Social History: , now working 16 hours a day Thursday through Thursday Smoking packs per day: 1.5 Smoking cigarettes per day: 30.0 Years smoked: 40 Smoking pack-years: 60.00 Smoking status: Former smoker Tobacco type: cigarettes Second hand tobacco smoke exposure: Yes Smoking end date: 04/13/11 Alcohol intake: former Drinks per week: 1 Substance use: current Substance use type: marijuana and crack/cocaine Other substance usage details: Used to drink half ga
[2020-10-18] MEDS: ALPRAZolam (*CRX) 0.5 MG TABLET PO (22:53)
[2020-10-19] VITALS (8 sets, daily range): BP systolic 119–146; BP diastolic 65–114; PULSE 50–122; RESP 13–22; TEMP 36.1–36.7; O2SAT 96–99
--- NOTE | 2020-10-19 | ECHO_ITS ---
Patient Info Name: Tenzin Vitale Age: 55 years : 1965 Gender: Male Ht: 70 in Wt: 213 lbs BSA: 2.21 m2 HR: 55 bpm BP: 128 / 85 mmHg Technical Quality: Good Exam Date: 10/19/2020 11:44 AM Exam Location: [facility] Pulmonary Exam Room: 213 Patient Status: Inpatient Admit Date: 10/18/2020 Staff Ordering Physician: Lupe Gaines MD Assistant Facility Manager: Mary Anne Gooden RDCS Attending Provider: Shelby Benjamin MD Referring Physician: Liana LUKE; Exam Type: CA echo doppler w bubble study Study Info Indications - TIA NUMBNESS SLURRED SPEECH Complete two-dimensional, color flow and Doppler transthoracic echocardiogram is performed with agitated saline. Contrast/Agitated Saline Contrast/Ag. Saline: Agitated Saline Amount: 20.00 ml Administered By: Carmen Villagran RN IV Access Condition: patent with no signs of infiltration Summary 1. Left ventricular chamber dimension is normal. 2. Left ventricular systolic function is normal, estimated at 65-70%. 3. The left ventricular diastolic function is abnormal. 4. E/e' 10 is mildly elevated. 5. There is mild to moderate aortic valve regurgitation. 6. There is trace mitral valve regurgitation. 7. No pulmonary hypertension, estimated pulmonary arterial systolic pressure is 37 mmHg. Left Ventricle E/e' 10 is mildly elevated. Left ventricular chamber dimension is normal. Left ventricular systolic function is normal, estimated at 65-70%. The left ventricular diastolic function is abnormal. Right Ventricle Right ventricular chamber dimension is normal. Right ventricular systolic function is normal. Left Atria Left atrial chamber dimension is normal. Right Atria Right atrial chamber dimension is normal. Atrial Septum Agitated saline injection with and without valsalva maneuver opacified right cardiac chambers without shunt to left cardiac chambers. Intact interatrial septum visualized by agitated saline imaging. Aortic Valve The aortic valve is trileaflet. There is no aortic valve stenosis. There is mild to moderate aortic valve regurgitation. Pulmonic Valve There is no pulmonic regurgitation. Mitral Valve There is no mitral valve stenosis. There is trace mitral valve regurgitation. Tricuspid Valve There is no tricuspid valve regurgitation. No pulmonary hypertension, estimated pulmonary arterial systolic pressure is 37 mmHg. Pericardium/Pleural There is no pericardial effusion. Inferior Vena Cava Normal inferior vena cava with >50% collapse upon inspiration consistent with normal right atrial pressure, 5 mmHg. Aorta The aortic root size at the sinus of Valsalva is normal. Left Ventricular Outflow Tract Name Value Normal LVOT 2D LVOT Diameter 2.1 cm LVOT Doppler LVOT Peak Gradient 5 mmHg LVOT Mean Gradient 2 mmHg LVOT VTI 22 cm LVOT VTI/AV VTI Ratio 0.7 LVOT Stroke Volume 73 ml LVOT CO
[2020-10-19] MEDS: ASPIRIN 81 MG ENTERIC TABLET PO (08:28)
[2020-10-19] MEDS: ESCITALOPRAM OXALATE 10 MG TABLET 20 MG PO (08:28)
[2020-10-19 09:32] LABS: Basophils Absolute Auto 0.1 K/mm3 (0.0-0.1); Basophils Percent Auto 0.9 % (0.2-1.2); Eosinophils Absolute Auto 0.3 K/mm3 (0-0.3); Hematocrit 51.4 % (42.0-52.0); Hemoglobin 16.9 g/dL (14.0-18.0); Immature Granulocyte Absolute 0.02 K/mm3 (0.00-0.031); Immature Granulocyte Percent A 0.4 % (0-0.5); Immature Platelet Fraction Pct 7.4 % (0.9-11.2); Lymphocytes Absolute Auto 1.55 K/mm3 (0.9-3.2); Lymphocytes Percent Auto 27.6 % (18.3-44.2); Mean Corpuscular HGB Conc 32.9 g/dl (32-36); Mean Corpuscular Hemoglobin 28.5 pg (26-34); Mean Corpuscular Volume 86.7 fl (80-100); Mean Platelet Volume 10.9 fl (7.4-10.4); Monocytes Absolute Auto 0.7 K/mm3 (0.1-0.6); Monocytes Percent Auto 11.6 % (2.6-8.5); Neutrophils Absolute Auto 3.1 K/mm3 (1.3-6.7); Neutrophils Percent Auto 54.5 % (45.5-73.1); Platelet Count Result 142 k/mm3 (150-375); Red Blood Count 5.93 M/mm3 (4.6-6.20); Red Cell Distribution Width 13.1 % (11.5-14.5); White Blood Count 5.6 K/mm3 (4.5-10.0)
[2020-10-19 09:38] LABS: Amphetamine Screen Urine Negative (Negative); Barbiturate Screen Urine Negative (Negative); Benzodiazepines Screen Urine Positive (Negative); Cannabinoid Screen Urine Negative (Negative); Cocaine Screen Urine Positive (Negative); Methadone Screen Urine Negative (Negative); Opiate Screen Urine Negative (Negative); Phencyclidine Screen Urine Negative (Negative)
[2020-10-19 09:43] LABS: Alanine Aminotransferase 20 U/L (4-50); Albumin Level 4.2 g/dL (3.5-5.1); Alkaline Phosphatase 56 U/L (38-126); Anion Gap 5 mmol/L (8-16); Aspartate Amino Transferase 23 U/L (17-59); Bilirubin,Total 0.6 mg/dL (0.2-1.3); Blood Urea Nitrogen 17 mg/dL (9-20); Calcium 9.3 mg/dL (8.4-10.2); Carbon Dioxide 34 mmol/L (22-30); Chloride 100 mmol/L (98-107); Estimated CRCL calculation 74 ml/min; Estimated Glomerular Filt Rate > 60; Glucose 99 mg/dL (75-110); Potassium 4.8 mmol/L (3.4-5.0); Sodium 139 mmol/L (137-145)
[2020-10-19] MEDS: ENOXAPARIN 40 MG/0.4 ML SYRINGE SUB-Q (10:55)
--- NOTE | 2020-10-19 15:51 | PM.DS ---
DS: Admitting Diagnosis Admitting Diagnosis Admitting Diagnosis: Chest pain, weakness and numbness DS: Discharge Diagnosis Discharge Diagnosis (1) Chest pain, atypical: Code(s): R07.89 - Other chest pain Status: Acute (2) Acute left-sided weakness: Code(s): R53.1 - Weakness Status: Acute (3) Anxiety: Code(s): F41.9 - Anxiety disorder, unspecified Status: Acute (4) BMI 29.0-29.9,adult: Code(s): Z68.29 - Body mass index [BMI] 29.0-29.9, adult Status: Acute (5) Depression: Qualifiers: Depression Type: unspecified Qualified Code(s): F32.9 - Major depressive disorder, single episode, unspecified Code(s): F32.9 - Major depressive disorder, single episode, unspecified Status: Acute (6) COPD (chronic obstructive pulmonary disease): Qualifiers: COPD type: unspecified COPD Qualified Code(s): J44.9 - Chronic obstructive pulmonary disease, unspecified Code(s): J44.9 - Chronic obstructive pulmonary disease, unspecified Status: Inactive (7) Bicuspid aortic valve: Code(s): Q23.1 - Congenital insufficiency of aortic valve Status: Acute DS: Summary Hospital Course Reason for hospitalization: chest pain and left-sided numbness Hospital Course: 55-year-old male with past history significant for COPD, depression, bicuspid aortic valve and hypertension presented with chest pain and left-sided arm and leg weakness and numbness. He also reported some slurring of speech. He was managed as a case of ACS rule out with concerns for possible stroke. For this reason received an EKG and troponin x2 which were noted to be negative. He also received a CTA of head and neck as well as an MRI which did not reveal any concerning findings of acute ischemia. Patient received an occluded read for which is still pending. However he requested that he could be discharged home and he will follow-up with his PCP regarding the read of the echo of the echo. Patient is being discharged with the understanding that he will need to follow-up with his PCP regarding results of the echo given his prior history of bicuspid aortic valve. Time Spent with Patient Time attestation: Total time spent providing and/or coordinating discharge services:> 30minutes Exam Const: General: cooperative HENMT: Head: normal to inspection Ears: hearing grossly normal bilaterally Face and sinus: normal facial exam Eyes: General: appearance normal, both eyes and all related structures Neck: Neck: normal visual inspection Chest: Chest palpation & inspection: normal inspection of the chest Resp: Effort & Inspection: normal respiratory effort Auscultation: clear to auscultation bilaterally Cardio: Jugular venous distension: no JVD Palpation: normal PMI Rate: regular rate Rhythm: regular rhythm and abnormal rhythm Heart sounds: S1 normal heart sound present and S2 normal heart sound present GI: Inspection: normal to inspection Percussion: Yes normal to percussion Auscultation: normal bowel sounds Back/Spine/Pelvis: Back: no CVA tenderness Skin: General skin exam: normal color and no rashes or lesions noted Neuro: General: patient oriented x3, gait normal and tone normal Extrem: General: normal to inspection, full ROM and capillary refill normal Psych: Appearance: grossly normal DS: Data Data Completed and Pending Labs on day of discharge: Labs from last 24 hours 10/19/20 10/19/20 10/19/20 09:14 09:14 08:54 WBC 5.6 RBC 5.93 Hgb 16.9 Hct 51.4 MCV 86.7 MCH 28.5 MCHC 32.9 RDW 13.1 Plt Count 142 L MPV 10.9 H Immature Gran % (Auto) 0.4 Neut % (Auto) 54.5 Lymph % (Auto) 27.6 [place] % (Auto) 11.6 H Eos % (Auto) 5.0 H Baso % (Auto) 0.9 Lymph # (Auto) 1.55 [place] # (Auto) 0.7 H Eos # (Auto) 0.3 Baso # (Auto) 0.1 Abs Immat Gran (auto) 0.02 Absolute Neuts (auto) 3.1 Absolute Nucleated
== END 2020-10-19 16:05 | disposition home or self-care (01) ==
LOC: ANHED 14:17 → ANHIMU 15:47
PROVIDERS: Internal Medicine; Admitting Provider Internal Medicine; Emergency Provider General Practice; PCP Family Medicine; Visit Provider Internal Medicine
DX: R07.89 Other chest pain (principal); G81.94 Hemiplegia, unspecified affecting left nondominant side; R47.1 Dysarthria and anarthria; J44.9 Chronic obstructive pulmonary disease, unspecified; Q23.1 Congenital insufficiency of aortic valve; I10 Essential (primary) hypertension; F14.90 Cocaine use, unspecified, uncomplicated; F32.9 Major depressive disorder, single episode, unspecified; F41.8 Other specified anxiety disorders; Z87.891 Personal history of nicotine dependence
CPT/HCPCS: 36415; 70496; 70498; 70553; 71045; 80048; 80053; 80307; 84484; 85025; 85055; 85610; 85730; 93005; 93306; 94640; 96372; 96375; 99285; A9270; A9577; G0378; J1650; Q9967

== ENCOUNTER 2021-07-09 11:32 | Emergency (ER) | payer OTHER, SELFPAY ==
[2021-07-09] VITALS (14 sets, daily range): BP systolic 117–140; BP diastolic 83–91; PULSE 79–98; RESP 18–37; TEMP 36.8; O2SAT 93–100
--- NOTE | ~2021-07-09 | XR_ITS ---
EXAMINATION: XR chest 2V EXAM DATE: 07/09/2021 12:25 INDICATION: cough, sob, Left Side Chest Pain X2 Days hx COPD. TECHNIQUE: Frontal and lateral projections of the chest obtained and reviewed. Comparison is made to prior examination from 10/18/2020. FINDINGS: Bilateral symmetric midlung zone nodules likely patient's nipples. The lungs are otherwise clear. There are no pleural effusions. The cardiomediastinal silhouette is within normal limits. There is no pneumothorax suspected. The bones and soft tissues are unremarkable. Mild hyperinflatio n. IMPRESSION: No acute cardiopulmonary findings. Reviewed, dictated and finalized at location B.
--- NOTE | 2021-07-09 11:47 | ECG_ITS ---
Measurements Intervals [place] Rate: 94 P: 81 [place]: 147 QRS: 50 QRSD: 93 T: 68 QT: 325 QTc: 407 Interpretive Statements SINUS RHYTHM RIGHT ATRIAL ENLARGEMENT [0.3mV P WAVE] NONSPECIFIC T-WAVE ABNORMAL ECG COMPARED WITH OCTOBER 18, 2020 HEART RATE INCREASED, NO OTHER SIGNIFICANT CHANGE Electronically Signed On 07-09-2021 17:34:11 CDT by Rajeev Carlos M.D.
[2021-07-09 11:59] LABS: Basophils Absolute Auto 0.1 K/mm3 (0.0-0.1); Basophils Percent Auto 0.6 % (0.2-1.2); Eosinophils Absolute Auto 0.1 K/mm3 (0-0.3); Eosinophils Percent Auto 1.5 % (0-4.4); Hematocrit 53.4 % (42.0-52.0); Hemoglobin 18.2 g/dL (14.0-18.0); Immature Granulocyte Absolute 0.01 K/mm3 (0.00-0.031); Immature Granulocyte Percent A 0.1 % (0-0.5); Lymphocytes Absolute Auto 1.19 K/mm3 (0.9-3.2); Lymphocytes Percent Auto 13.5 % (18.3-44.2); Mean Corpuscular HGB Conc 34.1 g/dl (32-36); Mean Corpuscular Hemoglobin 29.4 pg (26-34); Mean Corpuscular Volume 86.4 fl (80-100); Mean Platelet Volume 11.1 fl (7.4-10.4); Monocytes Absolute Auto 1.3 K/mm3 (0.1-0.6); Monocytes Percent Auto 14.1 % (2.6-8.5); Neutrophils Absolute Auto 6.2 K/mm3 (1.3-6.7); Neutrophils Percent Auto 70.2 % (45.5-73.1); Platelet Count Result 135 k/mm3 (150-375); Red Blood Count 6.18 M/mm3 (4.6-6.20); Red Cell Distribution Width 13.1 % (11.5-14.5); White Blood Count 8.8 K/mm3 (4.5-10.0)
[2021-07-09 12:09] LABS: Alanine Aminotransferase 17 U/L (4-50); Albumin Level 4.4 g/dL (3.5-5.1); Alkaline Phosphatase 63 U/L (38-126); Anion Gap 7 mmol/L (8-16); Aspartate Amino Transferase 26 U/L (17-59); Bilirubin,Total 0.5 mg/dL (0.2-1.3); Blood Urea Nitrogen 15 mg/dL (9-20); Calcium 9.2 mg/dL (8.4-10.2); Carbon Dioxide 27 mmol/L (22-30); Chloride 103 mmol/L (98-107); Estimated CRCL calculation 84 ml/min; Estimated Glomerular Filt Rate > 60; Glucose 121 mg/dL (65-110); Potassium 4.1 mmol/L (3.4-5.0); Sodium 137 mmol/L (137-145)
--- NOTE | 2021-07-09 14:15 | PC.NURSE ---
EDP at bedside to assess pt.
--- NOTE | 2021-07-09 14:17 | ED.SOB ---
HPI - SOB/Dyspnea General Chief Complaint: Shortness of Breath/Dyspnea Stated Complaint: sinus congestion, sob Time Seen by Provider: 07/09/21 13:15 Source: patient Mode of arrival: ambulatory Limitations: no limitations History of Present Illness HPI Narrative: This patient is a 56-year-old male past medical history significant for COPD / asthma, generalized anxiety disorder, cocaine use who presents to the ED for evaluation of cough, congestion, chest pain. Patient states he has felt unwell over the past 2 days, reporting runny nose, congestion. He reports achiness. Unsure if he has had a fever reportedly. He denies nausea or vomiting. Patient reports cough without hemoptysis, does report white sputum production. Patient does report shortness of breath and wheezing. He states that with significant coughing he does experience some central chest pain which occurred earlier today but is now resolved. He denies any current chest pain. He states that he currently is using drugs, refusing to answer when he last used, he does states that he uses cocaine. He refuses to answer further questions regarding his polysubstance abuse. Patient denies history of Covid, states he is vaccinated for Covid. States he is here for antibiotics. Related Data Allergies Allergy/AdvReac Type Severity Reaction Status Date / Time fexofenadine Allergy Severe Anaphylaxis Verified 11/20/20 07:48 Review of Systems Review of Systems: CONSTITUTIONAL: Unknown if he has had fever or chills reportedly per patient EYES: Denies visual changes, redness, or discharge. ENT: Reports rhinorrhea, congestion CARDIOVASCULAR: Denies chest pain, palpitations, or edema. RESPIRATORY: Reports cough and shortness of breath GASTROINTESTINAL: Denies abdominal pain, nausea, vomiting, or diarrhea. GENITOURINARY: Denies dysuria or hematuria. SKIN: Denies rash or itching. MUSCULOSKELETAL: Reports chronic lower back and hip pain, denies other acute joint pain, or myalgia. NEUROLOGIC: Denies headache, numbness, or weakness. [facility] Past Medical History Medical History (Updated 07/09/21 @ 15:44 by Miley Salcedo MD) Acute left-sided weakness Acute respiratory failure with hypoxia Anxiety Bicuspid aortic valve BMI 28.0-28.9,adult BMI 29.0-29.9,adult Changing skin lesion Chest pain, atypical Cocaine use COPD (chronic obstructive pulmonary disease) COPD exacerbation Depression Hypoxia Persistent cough Reaction to severe stress, unspecified Surgical History Surgical History Status post carpal tunnel release of both wrists Status post inguinal hernia repair Family History Family History Father Hypertension Mother Family history of diabetes mellitus in first degree relative Hypertension Acute myocardial infarction Chronic obstructive pulmonary disease Diabetes mellitus Grandparent Family history of heart disease in male family member before age 55 Cerebrovascular accident Sibling Diabetes mellitus Sibling Asthma Chronic obstructive pulmonary disease Social History Social History Social History: , now working 16 hours a day Thursday through Thursday Smoking packs per day: 1.5 Smoking cigarettes per day: 30.0 Years smoked: 40 Smoking pack-years: 60.00 Smoking status: Former smoker Tobacco type: cigarettes Second hand tobacco smoke exposure: Yes Smoking end date: 04/13/11 Alcohol intake: former Drinks per week: 1 Substance use: current Substance use type: marijuana and crack/cocaine Other substance usage details: Used to drink half gallon of whiskey a day before my 4 yr ago. Gender identity (if verbalized by the patient): Male Spiritual care concerns: No Exam Narrative: GENERAL: Awake, alert, conversant, unwell appearing, estelle
--- NOTE | 2021-07-09 14:47 | PC.NURSE ---
RT at bedside to administer neb treatments.
[2021-07-09] MEDS: methylPREDNISolone SOD SUCC 125 MG VIAL IV PUSH (15:07)
[2021-07-09] MEDS: SODIUM CHLORIDE 0.9% IV 500 ML 999 ML IV CONT (15:08)
[2021-07-09 15:39] LABS: Troponin I < 0.012 ng/mL (0.000-0.034)
[2021-07-09] MEDS: MAGNESIUM SULF 2 GM/WATER 50ML 2 GM/50 ML BAG IVPB (16:20)
[2021-07-09 17:29] LABS: Troponin I < 0.012 ng/mL (0.000-0.034)
[2021-07-09 18:05] LABS: SARS-CoV-2 RNA PCR Negative
== END 2021-07-09 17:53 | disposition home or self-care (01) ==
PROVIDERS: Emergency Medicine; Emergency Provider Emergency Medicine; PCP Family Medicine
DX: J44.1 Chronic obstructive pulmonary disease with (acute) exacerbation (principal); Z20.822 Contact with and (suspected) exposure to COVID-19; Z87.891 Personal history of nicotine dependence; R94.31 Abnormal electrocardiogram [ECG] [EKG]
CPT/HCPCS: 36415; 71046; 80053; 84484; 85025; 85055; 93005; 94640; 96361; 96365; 96368; 96375; 99285; C9803; J0456; J2930; J3475; J7040; U0003; U0005

== ENCOUNTER 2021-08-12 19:18 | Inpatient (IN) | payer OTHER, SELFPAY ==
[2021-08-12] VITALS (29 sets, daily range): BP systolic 112–139; BP diastolic 62–94; PULSE 77–100; RESP 22–56; TEMP 37.8; O2SAT 89–100
--- NOTE | ~2021-08-12 | XR_ITS ---
EXAMINATION: XR chest 2V Exam Date/Time: 08/12/2021 19:40 CDT CLINICAL HISTORY: SOB,PRODUCTIVE COUGH,RT LOW BACK PAIN,X3 DAYSHX COPD Comparison: 07/09/2021. RESULT: Lines, tubes, and devices: None. Lungs and pleura: Clear. Cardiomediastinal silhouette: Stable cardiomediastinal silhouette. Other: No acute osseous or upper abdominal finding. IMPRESSION: No acute cardiopulmonary process Reviewed, dictated and finalized at location K.
--- NOTE | 2021-08-12 19:33 | ECG_ITS ---
Measurements Intervals [place] Rate: 101 P: 78 [place]: 134 QRS: 39 QRSD: 90 T: 62 QT: 314 QTc: 409 Interpretive Statements SINUS TACHYCARDIA POSSIBLE RIGHT ATRIAL ENLARGEMEN INCOMPLETE RIGHT BUNDLE BRANCH BLOCK BASELINE ARTIFACT- I, II, III, AVR, AVL, AVF BORDERLINE ECG Electronically Signed On 08-12-2021 20:26:07 CDT by Ta Borjas D.O.
[2021-08-12 19:52] LABS: Basophils Percent Auto 0.2 % (0.2-1.2); Eosinophils Percent Auto 0.1 % (0-4.4); Hematocrit 45.5 % (42.0-52.0); Hemoglobin 15.4 g/dL (14.0-18.0); Immature Granulocyte Absolute 0.07 K/mm3 (0.00-0.031); Immature Granulocyte Percent A 0.4 % (0-0.5); Immature Platelet Fraction Pct 6.6 % (0.9-11.2); Lymphocytes Absolute Auto 1.16 K/mm3 (0.9-3.2); Lymphocytes Percent Auto 7.1 % (18.3-44.2); Mean Corpuscular HGB Conc 33.8 g/dl (32-36); Mean Corpuscular Hemoglobin 29.3 pg (26-34); Mean Corpuscular Volume 86.5 fl (80-100); Mean Platelet Volume 11.3 fl (7.4-10.4); Monocytes Absolute Auto 1.2 K/mm3 (0.1-0.6); Monocytes Percent Auto 7.6 % (2.6-8.5); Neutrophils Absolute Auto 13.7 K/mm3 (1.3-6.7); Neutrophils Percent Auto 84.6 % (45.5-73.1); Platelet Count Result 130 k/mm3 (150-375); Red Blood Count 5.26 M/mm3 (4.6-6.20); Red Cell Distribution Width 13.6 % (11.5-14.5); White Blood Count 16.2 K/mm3 (4.5-10.0)
[2021-08-12 20:00] LABS: Alanine Aminotransferase 26 U/L (4-50); Albumin Level 3.9 g/dL (3.5-5.1); Alkaline Phosphatase 71 U/L (38-126); Anion Gap 7 mmol/L (8-16); Aspartate Amino Transferase 30 U/L (17-59); Bilirubin,Total 0.7 mg/dL (0.2-1.3); Blood Urea Nitrogen 8 mg/dL (9-20); Calcium 8.4 mg/dL (8.4-10.2); Carbon Dioxide 26 mmol/L (22-30); Chloride 101 mmol/L (98-107); Estimated CRCL calculation 106 ml/min; Estimated Glomerular Filt Rate > 60; Glucose 113 mg/dL (65-110); Potassium 3.9 mmol/L (3.4-5.0); Sodium 134 mmol/L (137-145)
[2021-08-12] MEDS: IPRATROPIUM BR 0.02% INH SOLN 0.5 MG/2.5 ML VIAL INHALATION (21:17)
[2021-08-12] MEDS: ALBUTEROL SULFATE NEB 2.5 MG/0.5 ML INH 10 MG INHALATION (21:18)
[2021-08-12] MEDS: ALBUTEROL SULFATE NEB 2.5 MG/0.5 ML INH 5 MG INHALATION (21:20)
[2021-08-12 21:29] LABS: NT Pro B Type Natriuretic Pept 83 pg/mL (5-100)
[2021-08-12 21:33] LABS: Alveolar/Arterial O2 Gradient 118.4 mmHg; Base Excess ABG 0.6 mEq/l (+/-2.0); Fractional Inspired Oxygen 32 %; HCO3 ABG 24.4 mEq/l (22.0-26.0); Oxygen Content ABG 20.9 %vol (16.0-22.0); Oxygen Saturation ABG 97.2 % (95.0-100.0); Oxyhemoglobin 95.7 % THb (90.0-100.0); PCO2 ABG 36.8 mmHg (35.0-45.0); PO2 ABG 89.8 mmHg (80.0-100.0); PO2 FiO2 Ratio Arterial Blood 2.81 %; Total Hemoglobin 15.5 g/dL (12.0-18.0); pH ABG 7.439 (7.350-7.450)
[2021-08-12 21:34] LABS: Troponin I 0.017 ng/mL (0.000-0.034)
[2021-08-12 21:34] LABS: Device NASAL CANNULA; Modified Allen's Test Pass; Site Drawn RIGHT RADIAL
[2021-08-12] MEDS: methylPREDNISolone SOD SUCC 125 MG VIAL IV PUSH (23:03)
[2021-08-12 23:14] LABS: Influenza A QL RT-PCR Negative (Negative); Influenza B QL RT-PCR Negative (Negative); SARS-CoV-2 RNA PCR Positive
[2021-08-13] VITALS (10 sets, daily range): BP systolic 125–154; BP diastolic 65–88; PULSE 67–87; RESP 18–19; TEMP 36.2–36.4; O2SAT 84–99; BMI 26.7
[2021-08-13 00:18] LABS: CRP 22.9 mg/dL (<1.0)
--- NOTE | 2021-08-13 00:44 | ADMGEN ---
This patient, Tenzin Vitale, was admitted to 3 Med Surg Room 316-01. Patient/family oriented to hospital policies and general routines including ID bracelet, bed and alarms, visiting hours, pain management, procedures, bathroom and other care routines, personal items, smoking policy, room service/diet, and visiting hours. Information on how to activate the Rapid Response Team has been discussed. Patient/Family are encouraged to report perceived risks to care and to ask questions if they do not understand what they are told or what they should do.
[2021-08-13 01:09] LABS: INR 1.1; Prothrombin Time 14.2 Seconds (11.1-14.7)
--- NOTE | 2021-08-13 01:35 | ED.SOB ---
HPI - SOB/Dyspnea General Chief Complaint: Shortness of Breath/Dyspnea Stated Complaint: shortness of breath x 3 days COPD Time Seen by Provider: 08/12/21 20:37 Source: patient Mode of arrival: ambulatory History of Present Illness HPI Narrative: 56-year-old male presents today with complaints of increasing shortness of breath over the last 2 to 3 days. Patient states he has had a cough. Denies runny nose, fevers, body aches, chills, or sick contacts that he is aware of. Patient is vaccinated against COVID but does not believe in COVID, and is not vaccinated against influenza due to his dying from an influenza vaccine. Upon assessment patient was tachypneic in the 40s and could not finish his sentence. Patient is a smoker but states he has not smoked for last 2 days. Related Data Home Medications Medication Instructions Recorded Confirmed albuterol sulfate 2.5 mg INHALATION PRN PRN 08/13/21 08/13/21 albuterol sulfate [Ventolin HFA] 1 inhalation INHALATION PRN PRN 08/13/21 08/13/21 budesonide-formoterol [Symbicort] 2 puff INHALATION Q12H 08/13/21 08/13/21 Allergies Allergy/AdvReac Type Severity Reaction Status Date / Time fexofenadine Allergy Severe Anaphylaxis Verified 07/16/21 07:49 Review of Systems Review of Systems: CONSTITUTIONAL: Denies fever, chills, or sweats. EYES: Denies visual changes, redness, or discharge. ENT: Denies rhinorrhea, congestion, sore throat, or otalgia. CARDIOVASCULAR: Denies chest pain, palpitations, or edema. RESPIRATORY: Cough or dyspnea. GASTROINTESTINAL: Denies abdominal pain, nausea, vomiting, or diarrhea. GENITOURINARY: Denies dysuria or hematuria. SKIN: Denies rash or itching. MUSCULOSKELETAL: Denies back pain, joint pain, or myalgia. NEUROLOGIC: Denies headache, numbness, dizziness, or weakness. PSYCHIATRIC: Denies anxiety or depression. [facility] Past Medical History Medical History Acute left-sided weakness Acute respiratory failure with hypoxia Anxiety Bicuspid aortic valve BMI 26.0-26.9,adult BMI 28.0-28.9,adult BMI 29.0-29.9,adult Changing skin lesion Chest pain, atypical Cocaine use COPD (chronic obstructive pulmonary disease) COPD exacerbation Depression Hypoxia Persistent cough Reaction to severe stress, unspecified Surgical History Surgical History Status post carpal tunnel release of both wrists Status post inguinal hernia repair Family History Family History Father Hypertension Mother Family history of diabetes mellitus in first degree relative Hypertension Acute myocardial infarction Chronic obstructive pulmonary disease Diabetes mellitus Grandparent Family history of heart disease in male family member before age 55 Cerebrovascular accident Sibling Diabetes mellitus Sibling Asthma Chronic obstructive pulmonary disease Social History Social History Social History: , Not currently employed. Smoking packs per day: 1 Smoking cigarettes per day: 20.0 Years smoked: 45 Smoking pack-years: 45.00 Smoking status: Current every day smoker Tobacco type: cigarettes and e-cigarettes/vaping Second hand tobacco smoke exposure: Yes Smoking end date: 04/13/11 Additional smoking assessment comments: quit smoking for about seven years, then picked it back up Alcohol intake: current Drinks per week: 1 Substance use: current Substance use type: marijuana Other substance usage details: Used to drink half gallon of whiskey a day before my 4 yr ago. Gender identity (if verbalized by the patient): Male Spiritual care concerns: No Exam Narrative: GENERAL: Ill appearing, acute distress, disheveled appearing.. HEAD: Normocephalic, atraumatic. EYES: PERRLA and EOMI. ENT
[2021-08-13] MEDS: REMDESIVIR 200 MG/NS 250 ML 200 MG/250 ML BAG 250 MG IVPB (02:59)
[2021-08-13] MEDS: MORPHINE SULFATE (*CRX) 2 MG/ML INJ IV PUSH (03:09)
--- NOTE | 2021-08-13 06:12 | PM.IMHP ---
H&P: HPI History of Present Illness Date/Time: 08/13/21 06:12 56 yo M PMHx of COPD. Presents with 3 days of SOB and cough. Patient also reports subjective fevers, cough, chest congestion, sore throat. Patient reports he did not have diarrhea until he was admitted. Had one episode of liquid diarrhea while on the floor. In ED patients sats in low 90s to upper 80s. CXR clear. Labs remarkable for elevated WBC to 16 and plt in 130s. CRP elevated. ABG showing paO2 in 80s on 3 L O2. COVID PCR positive. Patient UDS positive for cocaine and benzos. Patient given solumedrol 125, rocephin, and azithromycin. Patient states he does not believe in COVID and is adamantly refusing therapies. After some discussion, he is agreeable to remdesivir and decadron, however he does not want convalescent plasma. Patient refusing to place oxygen on. Explained the risk of not using supplemental O2, including worsening in oxygenation requiring BiPAP and even intubation and if he refuses these he may potentially . Patient understands and is ok with these risks and elected to be DNR/DNI. Chief Complaint: SOB Review of Systems Review of Systems: All systems reviewed & are unremarkable except as noted in HPI and below PMFSH Past Medical History Medical History (Updated 08/13/21 @ 06:29 by Abilio Khan DO) Acute left-sided weakness Acute respiratory failure with hypoxia Anxiety Bicuspid aortic valve BMI 26.0-26.9,adult BMI 28.0-28.9,adult BMI 29.0-29.9,adult Changing skin lesion Chest pain, atypical Cocaine use COPD (chronic obstructive pulmonary disease) COPD exacerbation Depression Hypoxia Persistent cough Reaction to severe stress, unspecified Surgical History Surgical History Status post carpal tunnel release of both wrists Status post inguinal hernia repair Family History Family History Father Hypertension Mother Family history of diabetes mellitus in first degree relative Hypertension Acute myocardial infarction Chronic obstructive pulmonary disease Diabetes mellitus Grandparent Family history of heart disease in male family member before age 55 Cerebrovascular accident Sibling Diabetes mellitus Sibling Asthma Chronic obstructive pulmonary disease Social History Social History Social History: , Not currently employed. Smoking packs per day: 1 Smoking cigarettes per day: 20.0 Years smoked: 45 Smoking pack-years: 45.00 Smoking status: Current every day smoker Tobacco type: cigarettes and e-cigarettes/vaping Second hand tobacco smoke exposure: Yes Smoking end date: 04/13/11 Additional smoking assessment comments: quit smoking for about seven years, then picked it back up Alcohol intake: current Drinks per week: 1 Substance use: current Substance use type: marijuana Other substance usage details: Used to drink half gallon of whiskey a day before my 4 yr ago. Gender identity (if verbalized by the patient): Male Spiritual care concerns: No Meds Home Medications and Allergies Home Medications Medication Instructions Recorded Confirmed Type nebulizers #1 ea 07/16/21 08/13/21 Rx albuterol sulfate 2.5 mg INHALATION PRN PRN 08/13/21 08/13/21 History albuterol sulfate [Ventolin HFA] 1 inhalation INHALATION PRN PRN 08/13/21 08/13/21 History budesonide-formoterol [Symbicort] 2 puff INHALATION Q12H 08/13/21 08/13/21 History Allergies Allergy/AdvReac Type Severity Reaction Status Date / Time fexofenadine Allergy Severe Anaphylaxis Verified 08/13/21 01:47 Vital Signs Vital Signs - 24 hr 08/12/21 19:26 08/12/21 20:10 08/12/21 20:11 Temperature 100.0 F H Pulse Rate 97 Respiratory Rate 26 H Blood Pressure 130/65 Pulse Oximetry 94 89 L 96 08/12/21 20:38 08/12/21
[2021-08-13 06:33] LABS: Anion Gap 8 mmol/L (8-16); Blood Urea Nitrogen 11 mg/dL (9-20); Calcium 8.3 mg/dL (8.4-10.2); Carbon Dioxide 27 mmol/L (22-30); Chloride 102 mmol/L (98-107); Estimated CRCL calculation 106 ml/min; Estimated Glomerular Filt Rate > 60; Glucose 221 mg/dL (65-110); Potassium 4.1 mmol/L (3.4-5.0); Sodium 137 mmol/L (137-145)
[2021-08-13 06:34] LABS: Basophils Percent Auto 0.1 % (0.2-1.2); Hematocrit 42.4 % (42.0-52.0); Hemoglobin 14.4 g/dL (14.0-18.0); Immature Granulocyte Absolute 0.08 K/mm3 (0.00-0.031); Immature Granulocyte Percent A 0.6 % (0-0.5); Immature Platelet Fraction Pct 6.8 % (0.9-11.2); Lymphocytes Absolute Auto 0.44 K/mm3 (0.9-3.2); Lymphocytes Percent Auto 3.1 % (18.3-44.2); Mean Corpuscular Hemoglobin 29.9 pg (26-34); Mean Platelet Volume 11.1 fl (7.4-10.4); Monocytes Absolute Auto 0.3 K/mm3 (0.1-0.6); Monocytes Percent Auto 1.8 % (2.6-8.5); Neutrophils Absolute Auto 13.5 K/mm3 (1.3-6.7); Neutrophils Percent Auto 94.4 % (45.5-73.1); Platelet Count Result 133 k/mm3 (150-375); Red Blood Count 4.82 M/mm3 (4.6-6.20); Red Cell Distribution Width 13.5 % (11.5-14.5); White Blood Count 14.3 K/mm3 (4.5-10.0)
[2021-08-13 06:41] LABS: Alanine Aminotransferase 32 U/L (4-50); Estimated CRCL calculation 106 ml/min; Estimated Glomerular Filt Rate > 60
[2021-08-13 06:45] LABS: INR 1.2; Prothrombin Time 14.5 Seconds (11.1-14.7)
[2021-08-13] MEDS: DEXAMETHASONE SOD PHOS INJ 4 MG/ML VIAL 6 MG IV PUSH (09:39)
[2021-08-13] MEDS: ENOXAPARIN 40 MG/0.4 ML SYRINGE SUB-Q (09:39)
--- NOTE | 2021-08-13 09:54 | PM.IMPN ---
Progress Note: A&P Assessment and Plan (1) COVID-19: Code(s): U07.1 - COVID-19 Status: Acute Assessment and Plan: Patient stated that he received 2 doses of the vaccine April and May Concern for rapid deterioration given patient's presentation and worsening SpO2, however patient refusing some therapies and has elected to be DNR/DNI. Patient agreeable for decadron and remdesivir continue antibiotic today re-evaluate in a.m. (2) COPD (chronic obstructive pulmonary disease): Qualifiers: COPD type: unspecified COPD Qualified Code(s): J44.9 - Chronic obstructive pulmonary disease, unspecified Code(s): J44.9 - Chronic obstructive pulmonary disease, unspecified Status: Acute Assessment and Plan: Associated with COPD exacerbation inhaler treatment steroid antibiotics (3) Thrombocytopenia: Code(s): D69.6 - Thrombocytopenia, unspecified Status: Acute Assessment and Plan: Probably related to COVID-19 monitor (4) Polysubstance abuse: Code(s): F19.10 - Other psychoactive substance abuse, uncomplicated Status: Acute Assessment and Plan: Advised cessation Subjective Date/time seen: 08/13/21 09:54 Interval history: 56 years old male presented to the hospital with shortness of breath and cough started 3 days before admission patient was found to have probable COVID-19 pneumonia associated with acute hypoxemic respiratory failure currently required 3 L of oxygen O2 sat of 93 started on remdesivir and dexamethasone Patient had 2 doses of COVID-19 vaccine on Apr and June 04 Patient feels weak complaining of shortness of breath Patient denies fever headache chest pain I am seeing the patient for shortness of breath Exam Narrative: Alert Chest scattered crackles and wheeze Abdomen nontender nondistended CVS S1 + S2 Mild Lower extremity edema Objective Data Vital Signs Vital Signs: Vital Signs - 24 hr 08/12/21 19:26 08/12/21 20:10 08/12/21 20:11 Temperature 100.0 F H Pulse Rate 97 Respiratory Rate 26 H Blood Pressure 130/65 Pulse Oximetry 94 89 L 96 08/12/21 20:38 08/12/21 20:45 08/12/21 21:00 Temperature Pulse Rate 94 97 97 Respiratory Rate 42 H 37 H 25 H Blood Pressure Pulse Oximetry 96 95 94 08/12/21 21:05 08/12/21 21:15 08/12/21 21:16 Temperature Pulse Rate 97 100 100 Respiratory Rate 31 H 56 H 28 H Blood Pressure 117/67 134/94 H Pulse Oximetry 95 08/12/21 21:26 08/12/21 21:30 08/12/21 21:31 Temperature Pulse Rate 98 92 94 Respiratory Rate 32 H 27 H 32 H Blood Pressure 133/69 Pulse Oximetry 100 100 08/12/21 21:38 08/12/21 21:45 08/12/21 21:46 Temperature Pulse Rate 99 87 93 Respiratory Rate 24 H 22 H 28 H Blood Pressure 112/62 Pulse Oximetry 98 98 08/12/21 22:00 08/12/21 22:01 08/12/21 22:15 Temperature Pulse Rate 94 97 89 Respiratory Rate 34 H 40 H 34 H Blood Pressure 126/70 Pulse Oximetry 97 96 94 08/12/21 22:16 08/12/21 22:30 08/12/21 22:31 Temperature Pulse Rate 93 95 92 Respiratory Rate 30 H 42 H 27 H Blood Pressure 122/74 139/70 Pulse Oximetry 96 96 93 08/12/21 22:45 08/12/21 22:46 08/12/21 23:00 Temperature Pulse Rate 88 91 84 Respiratory Rate 51 H 37 H 22 H Blood Pressure 129/66 Pulse Oximetry 96 96 08/12/21 23:04 08/12/21 23:10 08/12/21 23:15 Temperature Pulse Rate 84 77 77 Respiratory Rate 32 H 33 H 27 H Blood Pressure 132/69 Pulse Oximetry 94 98 08/12/21 23:19 08/12/21 23:30 08/13/21 00:48 Temperature 97.1 F L Pulse Rate 85 96 87 Respiratory Rate 24 H 38 H 18 Blood Pressure 125/77 Pulse Oximetry 93 08/13/21 02:18 08/13/21 02:59 08/13/21 06:07 Temperature 97.3 F L Pulse Rate 73 Respiratory Rate 18 Blood Pressure 128/71 Pulse Oximetry 94 90 84 L 08/13/21 08:00 08/13/21 08:06 Temperature 97.1 F L Pulse Rate 71 Respiratory Rate 19 Blood Pressure 137/73 Pulse Oxime
[2021-08-13] MEDS: HYDROcodone/acetaminophen (*CRX) 5-325 MG TABLET 1 TAB PO (11:14)
[2021-08-13 11:57] LABS: CRP 21.6 mg/dL (<1.0)
[2021-08-13] MEDS: FUROSEMIDE INJ 40 MG/4 ML VIAL 20 MG IV PUSH (17:30)
[2021-08-13] MEDS: guaiFENesin 12 HR 600 MG TABCR 1200 MG PO (21:19)
[2021-08-13] MEDS: REMDESIVIR 100 MG/NS 250 ML 100 MG/250 ML BAG 250 MG IVPB (21:19)
[2021-08-13] MEDS: hydrOXYzine pamoate 25 MG CAPSULE 50 MG PO (21:24)
[2021-08-13] MEDS: FLUTICASONE/SALMETEROL 115-21 MCG (*SP) INHALER 2 PUFF INHALATION (21:40)
[2021-08-14] VITALS (10 sets, daily range): BP systolic 111–151; BP diastolic 64–93; PULSE 56–86; RESP 16–24; TEMP 35.8–36.9; O2SAT 94–98
[2021-08-14 06:17] LABS: Basophils Percent Auto 0.1 % (0.2-1.2); Hematocrit 42.7 % (42.0-52.0); Hemoglobin 14.2 g/dL (14.0-18.0); Immature Granulocyte Absolute 0.07 K/mm3 (0.00-0.031); Immature Granulocyte Percent A 0.5 % (0-0.5); Lymphocytes Absolute Auto 1.01 K/mm3 (0.9-3.2); Lymphocytes Percent Auto 6.6 % (18.3-44.2); Mean Corpuscular HGB Conc 33.3 g/dl (32-36); Mean Corpuscular Hemoglobin 29.2 pg (26-34); Mean Corpuscular Volume 87.9 fl (80-100); Mean Platelet Volume 11.6 fl (7.4-10.4); Monocytes Absolute Auto 0.5 K/mm3 (0.1-0.6); Monocytes Percent Auto 3.5 % (2.6-8.5); Neutrophils Absolute Auto 13.7 K/mm3 (1.3-6.7); Neutrophils Percent Auto 89.3 % (45.5-73.1); Platelet Count Result 143 k/mm3 (150-375); Red Blood Count 4.86 M/mm3 (4.6-6.20); Red Cell Distribution Width 13.4 % (11.5-14.5); White Blood Count 15.3 K/mm3 (4.5-10.0)
[2021-08-14 06:27] LABS: INR 1.1; Prothrombin Time 13.7 Seconds (11.1-14.7)
[2021-08-14 06:32] LABS: Alanine Aminotransferase 33 U/L (4-50); Anion Gap 8 mmol/L (8-16); Blood Urea Nitrogen 21 mg/dL (9-20); Calcium 8.5 mg/dL (8.4-10.2); Carbon Dioxide 28 mmol/L (22-30); Chloride 102 mmol/L (98-107); Estimated CRCL calculation 106 ml/min; Estimated Glomerular Filt Rate > 60; Glucose 278 mg/dL (65-110); Potassium 3.8 mmol/L (3.4-5.0); Sodium 138 mmol/L (137-145)
[2021-08-14 07:16] LABS: CRP 17.1 mg/dL (<1.0)
[2021-08-14] MEDS: FLUTICASONE/SALMETEROL 115-21 MCG (*SP) INHALER 2 PUFF INHALATION ×2 (08:49→20:18)
--- NOTE | 2021-08-14 09:33 | PM.IMPN ---
Progress Note: A&P Assessment and Plan (1) COVID-19: Code(s): U07.1 - COVID-19 Status: Acute Assessment and Plan: Patient stated that he received 2 doses of the vaccine April and May Concern for rapid deterioration given patient's presentation and worsening SpO2, however patient refusing some therapies and has elected to be DNR/DNI. Patient agreeable for decadron and remdesivir continue antibiotic today re-evaluate in a.m. as leukocytosis worse today (2) COPD (chronic obstructive pulmonary disease): Qualifiers: COPD type: unspecified COPD Qualified Code(s): J44.9 - Chronic obstructive pulmonary disease, unspecified Code(s): J44.9 - Chronic obstructive pulmonary disease, unspecified Status: Acute Assessment and Plan: Associated with COPD exacerbation inhaler treatment steroid antibiotics (3) Thrombocytopenia: Code(s): D69.6 - Thrombocytopenia, unspecified Status: Acute Assessment and Plan: Probably related to COVID-19 monitor (4) Polysubstance abuse: Code(s): F19.10 - Other psychoactive substance abuse, uncomplicated Status: Acute Assessment and Plan: Advised cessation (5) Hyperglycemia: Code(s): R73.9 - Hyperglycemia, unspecified Status: Acute Assessment and Plan: Started insulin sliding scale check A1c Subjective Date/time seen: 08/14/21 09:33 Interval history: 56 years old male presented to the hospital with shortness of breath and cough started 3 days before admission patient was found to have probable COVID-19 pneumonia associated with acute hypoxemic respiratory failure currently required 3 L of oxygen O2 sat of 93 started on remdesivir and dexamethasone Patient had 2 doses of COVID-19 vaccine on Apr and June 04 Patient feels weak complaining of shortness of breath but better than yesterday Has hyperglycemia uncontrolled Patient denies fever headache chest pain I am seeing the patient for shortness of breath Exam Narrative: Alert Chest scattered crackles and wheeze Abdomen nontender nondistended CVS S1 + S2 Mild Lower extremity edema Objective Data Vital Signs Vital Signs: Vital Signs - 24 hr 08/13/21 12:00 08/13/21 16:00 08/13/21 20:00 Temperature 97.1 F L 97.3 F L 97.6 F Pulse Rate 86 78 67 Respiratory Rate 18 18 18 Blood Pressure 138/65 146/87 H 154/88 H Pulse Oximetry 94 97 97 08/13/21 21:40 08/14/21 00:00 08/14/21 04:00 Temperature 98.4 F 96.5 F L Pulse Rate 58 L 56 L Respiratory Rate 20 16 Blood Pressure 146/81 H 151/93 H Pulse Oximetry 97 96 98 08/14/21 08:00 08/14/21 08:48 Temperature 97.1 F L Pulse Rate 58 L Respiratory Rate 18 Blood Pressure 116/67 Pulse Oximetry 96 97 Intake/Output Intake/Output: Intake & Output 08/11/21 08/12/21 08/13/21 08/14/21 23:59 23:59 23:59 23:59 Intake Total 2800 540 Output Total 800 Balance 1999 540 Meds/Results Medications: Active Medications Generic Name Dose Route Start Last Admin Trade Name Freq PRN Reason Stop Dose Admin Hydrocodone Bitart/Acetaminophen 1 tab 08/13/21 10:50 08/13/21 11:14 Hydrocodone/Acetaminophen (*Crx) 5-325 Mg Tablet PO 1 tab Q4H PRN Administration Pain Rated 4-6 Albuterol 2.5 mg 08/13/21 05:35 Albuterol Sulfate Neb 2.5 Mg/3 Ml Inh INHALATION PRN PRN shortness of breath or wheezing Dexamethasone Sodium Phosphate 6 mg 08/13/21 09:00 08/13/21 09:39 Dexamethasone Sod Phos Inj 4 Mg/Ml Vial IV PUSH 08/21/21 10:00 6 mg DAILY KAREN Administration Dextrose 12.5 gm 08/14/21 09:32 Dextrose 50% 25 Gm/50 Ml Syringe IV PUSH PRN PRN Hypoglycemia Protocol Enoxaparin Sodium 40 mg 08/13/21 09:00 08/13/21 09:39 Enoxaparin 40 Mg/0.4 Ml Syringe SUB-Q 40 mg DAILY KAREN Administration Glucagon 1 mg 08/14/21 09:32 Glucagon For Inj 1 Mg Vial IM PRN PRN Hypoglycemia Protocol Glucose 15 gm
[2021-08-14] MEDS: guaiFENesin 12 HR 600 MG TABCR 1200 MG PO ×2 (09:51→21:40)
[2021-08-14] MEDS: DEXAMETHASONE SOD PHOS INJ 4 MG/ML VIAL 6 MG IV PUSH (09:51)
[2021-08-14] MEDS: ENOXAPARIN 40 MG/0.4 ML SYRINGE SUB-Q (09:51)
[2021-08-14] MEDS: FUROSEMIDE INJ 40 MG/4 ML VIAL 20 MG IV PUSH (09:51)
[2021-08-14] MEDS: hydrOXYzine pamoate 25 MG CAPSULE 50 MG PO ×2 (09:52→18:34)
[2021-08-14 10:37] LABS: Hemoglobin A1C 5.6 % (<5.7)
[2021-08-14 11:50] LABS: Glucose Point of Care 144 mg/dl (65-105)
[2021-08-14] MEDS: HYDROcodone/acetaminophen (*CRX) 5-325 MG TABLET 1 TAB PO (15:02)
[2021-08-14 16:52] LABS: Glucose Point of Care 174 mg/dl (65-105)
[2021-08-14] MEDS: ALBUTEROL SULFATE NEB 2.5 MG/3 ML INH INHALATION (18:41)
[2021-08-14] MEDS: REMDESIVIR 100 MG/NS 250 ML 100 MG/250 ML BAG 250 MG IVPB (21:40)
[2021-08-14 21:53] LABS: Glucose Point of Care 177 mg/dl (65-105)
[2021-08-14] MEDS: CALCIUM CARBONATE (TUMS) 500 MG (200 MG ELEMENTAL) PO (22:56)
[2021-08-15] VITALS: BP 140/79; PULSE 61; RESP 18; TEMP 36; O2SAT 97
--- NOTE | 2021-08-15 01:05 | PC.NURSE ---
Pts contact, Mamta Garcia continues to call [facility] and states she has covid and pt has covid and was seeking medical advice. President And Chief Commercial Officer advised pt to report to emergency room or healthcare provider if feels necessary. Call transferred to pts room per pts request. After two discussions with Mamta pt requesting to speak with Nurse. Pt verbalized after speaking with Mamta that she and him have covid. Pt states he did not tell her this and states she is to not know any information about him. President And Chief Commercial Officer explained to pt that Mamta is a parts counter salesperson on his list. President And Chief Commercial Officer asked if pt wanted her on the list still. Pt stated I want her on the list, but she cannot know any information about me, only notify her if I . Pt declines changing to confidential at this time.
[2021-08-15] MEDS: HYDROcodone/acetaminophen (*CRX) 5-325 MG TABLET 1 TAB PO (02:08)
--- NOTE | 2021-08-15 02:10 | PC.NURSE ---
Spoke with pt again regarding his confidentiality. Pt verbalized that he wants Mamta to have absolutely no contact with him. Pt states I told Mamta I have covid and now she is calling me telling me she knows all of my information. Publishing Manager explained to pt that no information has been disclosed to Mamta and only calls have been transfered to his room per his request. Publishing Manager explained that his chart will now be updated to where she can no longer contact him. Pt verbalizes understanding.
[2021-08-15 04:00] VITALS: BP 134/87; PULSE 54; RESP 18; TEMP 36.4; O2SAT 100
--- NOTE | 2021-08-15 04:10 | PC.NURSE ---
Pt. has no IV access, attempted to stick pt. twice, during second attempt pt. verbalized that he wanted us to stop. Pt. stated that we only have one more try to stick him and then he doesn't want it . Will notify vascular access nurse in AM.
[2021-08-15 06:23] LABS: Basophils Percent Auto 0.2 % (0.2-1.2); Hematocrit 41.3 % (42.0-52.0); Hemoglobin 13.8 g/dL (14.0-18.0); Immature Granulocyte Absolute 0.06 K/mm3 (0.00-0.031); Immature Granulocyte Percent A 0.5 % (0-0.5); Lymphocytes Percent Auto 12.2 % (18.3-44.2); Mean Corpuscular HGB Conc 33.4 g/dl (32-36); Mean Corpuscular Hemoglobin 29.4 pg (26-34); Mean Corpuscular Volume 88.1 fl (80-100); Mean Platelet Volume 11.4 fl (7.4-10.4); Monocytes Absolute Auto 0.9 K/mm3 (0.1-0.6); Monocytes Percent Auto 6.9 % (2.6-8.5); Neutrophils Absolute Auto 10.6 K/mm3 (1.3-6.7); Neutrophils Percent Auto 80.2 % (45.5-73.1); Platelet Count Result 175 k/mm3 (150-375); Red Blood Count 4.69 M/mm3 (4.6-6.20); Red Cell Distribution Width 13.5 % (11.5-14.5); White Blood Count 13.2 K/mm3 (4.5-10.0)
[2021-08-15 06:29] LABS: INR 1.2; Prothrombin Time 14.2 Seconds (11.1-14.7)
[2021-08-15 06:45] LABS: Potassium 3.8 mmol/L (3.4-5.0)
[2021-08-15 06:52] LABS: Alanine Aminotransferase 44 U/L (4-50); Albumin Level 3.4 g/dL (3.5-5.1); Alkaline Phosphatase 63 U/L (38-126); Anion Gap 7 mmol/L (8-16); Aspartate Amino Transferase 33 U/L (17-59); Bilirubin,Total 0.2 mg/dL (0.2-1.3); Blood Urea Nitrogen 20 mg/dL (9-20); Calcium 8.4 mg/dL (8.4-10.2); Carbon Dioxide 27 mmol/L (22-30); Chloride 102 mmol/L (98-107); Estimated CRCL calculation 106 ml/min; Estimated Glomerular Filt Rate > 60; Glucose 120 mg/dL (65-110); Sodium 136 mmol/L (137-145)
[2021-08-15 08:00] VITALS: BP 156/81; PULSE 55; RESP 20; TEMP 36.2; O2SAT 97
[2021-08-15 08:47] VITALS: PULSE 90; RESP 20
[2021-08-15] MEDS: ALBUTEROL SULFATE NEB 2.5 MG/3 ML INH INHALATION (08:47)
[2021-08-15] MEDS: FLUTICASONE/SALMETEROL 115-21 MCG (*SP) INHALER 2 PUFF INHALATION (08:47)
[2021-08-15 08:48] VITALS: O2SAT 97
[2021-08-15 08:55] VITALS: PULSE 88; RESP 20
[2021-08-15] MEDS: guaiFENesin 12 HR 600 MG TABCR 1200 MG PO (09:15)
[2021-08-15] MEDS: ENOXAPARIN 40 MG/0.4 ML SYRINGE SUB-Q (09:15)
--- NOTE | 2021-08-15 10:11 | PM.DS ---
DS: Admitting Diagnosis Discharge Date 08/15/2021 Admitting Diagnosis Shortness of breath DS: Discharge Diagnosis Discharge Diagnosis (1) COVID-19: Code(s): U07.1 - COVID-19 Status: Acute Assessment and Plan: Patient stated that he received 2 doses of the vaccine April and May Concern for rapid deterioration given patient's presentation and worsening SpO2, however patient refusing some therapies and has elected to be DNR/DNI. Patient agreeable for decadron and remdesivir patient is adamant about going home today patient is aware that will need 1 more day of IV therapy but patient is adamant about going home today patient is not on oxygen I offered the patient to stay 1 more day but patient refused (2) COPD (chronic obstructive pulmonary disease): Qualifiers: COPD type: unspecified COPD Qualified Code(s): J44.9 - Chronic obstructive pulmonary disease, unspecified Code(s): J44.9 - Chronic obstructive pulmonary disease, unspecified Status: Acute Assessment and Plan: Associated with COPD exacerbation inhaler treatment resume home medication (3) Thrombocytopenia: Code(s): D69.6 - Thrombocytopenia, unspecified Status: Acute Assessment and Plan: Probably related to COVID-19 monitor repeat CBC in 1 week (4) Polysubstance abuse: Code(s): F19.10 - Other psychoactive substance abuse, uncomplicated Status: Acute Assessment and Plan: Advised cessation follow-up with PCP (5) Hyperglycemia: Code(s): R73.9 - Hyperglycemia, unspecified Status: Acute Assessment and Plan: Probably related to steroid and COVID-19 A1c was 5.7 follow-up with PCP diet and exercise DS: Summary Hospital Course Hospital Course: 56 years old male presented to the hospital with shortness of breath and cough started 3 days before admission patient was found to have probable COVID-19 pneumonia and COPD exacerbation associated with acute hypoxemic respiratory failure required 3 L of oxygen O2 sat of 93 started on remdesivir and dexamethasone patient is adamant about going home today patient currently is not on any oxygen denies shortness of breath I offered the patient to stay overnight to complete the course of remdesivir and dexamethasone patient adamantly refused Time Spent with Patient Time attestation: Total time spent providing and/or coordinating discharge services: Exam Narrative: Alert Chest scattered crackles and wheeze Abdomen nontender nondistended CVS S1 + S2 Mild Lower extremity edema DS: Data Data Completed and Pending Labs on day of discharge: Labs from last 24 hours 08/15/21 08/15/21 08/15/21 05:54 05:54 05:54 WBC RBC Hgb Hct MCV MCH MCHC RDW Plt Count MPV Immature Gran % (Auto) Neut % (Auto) Lymph % (Auto) [place] % (Auto) Eos % (Auto) Baso % (Auto) Lymph # (Auto) [place] # (Auto) Eos # (Auto) Baso # (Auto) Abs Immat Gran (auto) Absolute Neuts (auto) Absolute Nucleated RBC Nucleated RBC % PT 14.2 INR 1.2 Sodium 136 L Potassium 3.8 Chloride 102 Carbon Dioxide 27 Anion Gap 7 L BUN 20 Creatinine 0.70 Estim Creat Clear Calc 106 Estimated GFR > 60 Glucose 120 H POC Capillary Glucose Hemoglobin A1c Calcium 8.4 Ferritin Total Bilirubin 0.2 AST 33 ALT 44 Alkaline Phosphatase 63 C-Reactive Protein 7.0 H Total Protein 6.0 L Albumin 3.4 L 08/15/21 08/15/21 08/14/21 05:54 05:54 21:39 WBC 13.2 H RBC 4.69 Hgb 13.8 L Hct 41.3 L MCV 88.1 MCH 29.4 MCHC 33.4 RDW 13.5 Plt Count 175 MPV 11.4 H Immature Gran % (Auto) 0.5 Neut % (Auto) 80.2 H Lymph % (Auto) 12.2 L [place] % (Auto) 6.9 Eos % (Auto) 0.0 Baso % (Auto) 0.2 Lymph # (Auto) 1.60 [place] # (Auto) 0.9 H Eos # (Auto) 0.0 Baso # (Auto) 0.0 Abs Immat Gran (au
== END 2021-08-15 10:35 | disposition home or self-care (01) | DRG 137 ==
LOC: ANHED 23:40 → ANH3MEDSUR 23:58
PROVIDERS: Emergency Medicine; Admitting Provider Internal Medicine; Emergency Provider Nurse Practitioner Family; PCP Family Medicine; Visit Provider Internal Medicine
DX: U07.1 COVID-19 (principal); J96.01 Acute respiratory failure with hypoxia; J44.0 Chronic obstructive pulmonary disease with (acute) lower respiratory infection; J44.1 Chronic obstructive pulmonary disease with (acute) exacerbation; D69.6 Thrombocytopenia, unspecified; Z66 Do not resuscitate; F17.290 Nicotine dependence, other tobacco product, uncomplicated; F17.210 Nicotine dependence, cigarettes, uncomplicated; F19.10 Other psychoactive substance abuse, uncomplicated; F12.90 Cannabis use, unspecified, uncomplicated; R73.9 Hyperglycemia, unspecified; R19.7 Diarrhea, unspecified
CPT/HCPCS: 36415; 36600; 71046; 80048; 80053; 82565; 82728; 82805; 82948; 83036; 83605; 83880; 84460; 84484; 85025; 85055; 85610; 86140; 87040; 87502; 93005; 94640; 96365; 96366; 96367; 96372; 96374; 96375; 99285; A9270; C9803; G0378; G0379; J0248; J0456; J0696; J1100; J1650; J1940; J2270; J2930; U0003; U0005

== ENCOUNTER 2021-09-20 13:22 | Emergency (ER) | payer OTHER, SELFPAY ==
--- NOTE | ~2021-09-20 | XR_ITS ---
XR tibia fibula LT 2V DATE: 09/20/2021 13:39 INDICATION: Pain and swelling after injury TECHNIQUE: AP and lateral views of tibia and fibula COMPARISON: None FINDINGS: There is a fixation device in the femur, terminating at the distal femoral metaphysis. There is some cortical thickening of the mid shafts of the tibia and fibula likely from previous frac tures. No recent fracture or dislocation of the tibia or fibula. Normal alignment at the knee and ank le joints. IMPRESSION: No recent fracture or dislocation Reviewed, dictated and finalized at location A.
[2021-09-20 13:26] VITALS: BP 124/86; PULSE 95; RESP 20; TEMP 36.1; O2SAT 97
--- NOTE | 2021-09-20 13:42 | ED.LOWEXIN ---
HPI - Extremity Injury (Lower) General Chief Complaint: Extremity Injury, Lower Stated Complaint: INJURED L LEG Time Seen by Provider: 09/20/21 13:40 Source: patient, RN notes reviewed and old records reviewed Mode of arrival: ambulatory Limitations: no limitations History of Present Illness HPI Narrative: 56-year-old male who presents to express care with complaints of injury to his left medial lower leg with bruising and pain after accidently shutting truck door on his leg short time prior to arrival in express care. Patient has no abrasions to area but left medial lower leg is swollen with some initial bruising noted. Patient reports injury to his left leg in the past with healed fracture of tibia from 1981. patient is able to bear weight to left leg with no open skin areas or abrasions noted. Patient has not taken any OTC medication prior to arrival in clinic. MD complaint: leg injury Onset (ago): hour(s) (within past 2 hours prior to arrival) Type of Injury: other (contusion) Severity scale (1-10): 10 Related Data Home Medications Medication Instructions Recorded Confirmed albuterol sulfate 90 mcg/actuation 1 inhalation inhalation PRN PRN 08/13/21 08/13/21 aerosol inhaler (Ventolin HFA) Shortness Of Breath Or Wheezing budesonide-formoterol HFA 160 2 puff inhalation Q12H 08/13/21 08/13/21 mcg-4.5 mcg/actuation aerosol inhaler (Symbicort) Allergies Allergy/AdvReac Type Severity Reaction Status Date / Time fexofenadine Allergy Severe Anaphylaxis Verified 08/13/21 01:47 Review of Systems Review of Systems: CONSTITUTIONAL: Denies fever, chills, or sweats. EYES: Denies visual changes, redness, or discharge. ENT: Denies rhinorrhea, congestion, sore throat, or otalgia. CARDIOVASCULAR: Denies chest pain, palpitations, or edema. RESPIRATORY: Denies cough or dyspnea. GASTROINTESTINAL: Denies abdominal pain, nausea, vomiting, or diarrhea. GENITOURINARY: Denies dysuria or hematuria. SKIN: Denies rash or itching. MUSCULOSKELETAL: Denies back pain, positive for left medial lower leg pain from injury, or myalgia. NEUROLOGIC: Denies headache, numbness, or weakness. PSYCHIATRIC: Denies anxiety or depression. [facility] Past Medical History Medical History Acute left-sided weakness Acute respiratory failure with hypoxia Anxiety Bicuspid aortic valve BMI 26.0-26.9,adult BMI 28.0-28.9,adult BMI 29.0-29.9,adult Changing skin lesion Chest pain, atypical Cocaine use COPD (chronic obstructive pulmonary disease) COPD exacerbation Depression Hypoxia Persistent cough Reaction to severe stress, unspecified Surgical History Surgical History Status post carpal tunnel release of both wrists Status post inguinal hernia repair Family History Family History Father Hypertension Mother Family history of diabetes mellitus in first degree relative Hypertension Acute myocardial infarction Chronic obstructive pulmonary disease Diabetes mellitus Grandparent Family history of heart disease in male family member before age 55 Cerebrovascular accident Sibling Diabetes mellitus Sibling Asthma Chronic obstructive pulmonary disease Social History Social History Social History: , Not currently employed. Smoking packs per day: 1 Smoking cigarettes per day: 20.0 Years smoked: 45 Smoking pack-years: 45.00 Smoking status: Current every day smoker Tobacco type: cigarettes and e-cigarettes/vaping Second hand tobacco smoke exposure: Yes Smoking end date: 04/13/11 Additional smoking assessment comments: quit smoking for about seven years, then picked it back up Alcohol intake: current Drinks per week: 1 Substance use: current Substance use type: marijuana Other
== END 2021-09-20 14:12 | disposition home or self-care (01) ==
PROVIDERS: Emergency Provider Registered Nurse; PCP Family Medicine
DX: S80.12XA Contusion of left lower leg, initial encounter (principal); X58.XXXA Exposure to other specified factors, initial encounter; J44.9 Chronic obstructive pulmonary disease, unspecified; F17.210 Nicotine dependence, cigarettes, uncomplicated; F17.290 Nicotine dependence, other tobacco product, uncomplicated
CPT/HCPCS: 73590; 99213; G0463

== ENCOUNTER 2024-05-13 14:42 | Inpatient (IN) | payer SELFPAY ==
[2024-05-13] VITALS (19 sets, daily range): BP systolic 122–182; BP diastolic 58–93; PULSE 67–86; RESP 21–30; TEMP 36.6–37.3; O2SAT 96–100; BMI 27.1
--- NOTE | ~2024-05-13 | XR_ITS ---
EXAMINATION: XR chest 1V portable DATE: 05/13/2024 15:26 INDICATION: Shortness of breath. TECHNIQUE: A single frontal view of the chest was obtained on 2 radiographs. COMPARISON: Chest 2 views 08/12/2021 FINDINGS: There is no pneumonia, pleural effusion, or pneumothorax. The heart size is normal. There i s an old healed right rib fracture. IMPRESSION: 1. No acute cardiopulmonary disease. Reviewed, dictated and finalized at location A. [employer]
--- OUTSIDE RECORDS SUMMARY | 2024-05-13 14:45 | XMS_ITS | Clinical Summary ---
Author Organization [facility] Address [address] [place] [address] Care Team Providers Care Director Of Spa And Guest Experience Name Role Phone Som Nelson MD Primary Care Provider [phone] Source Comments [facility],non-owned Affiliates and Associated Physician Practices is amultiple site organization consisting of ambulatory clinics and hospital sitesin [place], [place], [place] and [place]. This disclosure is being madepursuant to the Care Everywhere program and may not contain all information available regarding this patient. Last updated 18.[facility] [employer] Social History Tobacco Use Types Packs/Day Years Used Date Smoking Tobacco: Never Assessed Sex and Gender Information Value Date Recorded Sex Assigned at Not on file Gender Identity Not on file Sexual Orientation Not on file Plan of Treatment Health Maintenance Due Date Last Done Comments COLOGUARD (AGES 45-75) - COL ON CA SCREENING 1963 COLON MONITORING 1963 COLONOSCOPY - COLON CA SCREENING 1963 CT COLONOGRAPHY - COLON CA SCREENING 1963 Colorectal Cancer Screening 1963 FIT - COLON CA SCREENING 1963 FLEX SIG - COLON CA SCREENING 1963 LIPID TESTING 1963 HIV SCREENING 1978 HEPATITIS C SCREENING 05/19/1981 DTAP/TDAP/TD VACCINES (1 - Tdap) 1982 PNEUMOCOCCAL VACCINE 50+ (1 of 1 - PCV) 2013 ZOSTER VACCINE (1 of 2) 2013 COVID-19 VACCINE ( - 2023-2 5 season) 2023 INFLUENZA VACCINE (#1) 2023 DEPRESSION SCREENING 04/13/2024 Respiratory Syncytial Virus (RSV) Vaccine Pt: or over 60 yrs (1 - 1-dose 75+ series) 2038 HEPATITIS B VACCINE Aged Out No longe r eligible based on patient's age to complete this topic HIB VACCINE Aged Out No longer eligi ble based on patient's age to complete this topic HPV VACCINE Aged Out No longer eligi ble based on patient's age to complete this topic MENINGOCOCCAL (Group B) VACCINE Aged Out No longer eligible based on patient's age to complete this topic MENINGOCOCCAL VACCINE Aged Out No boone merlin eligible based on patient's age to complete this topic PNEUMOCOCCAL VACCINE Aged Out No long er eligible based on patient's age to complete this topic Care Teams Director Of Spa And Guest Experience Relationship Specialty Start Date End Date Som Nelson MD [address] [place] [address] PCP - General 10/02/20
--- OUTSIDE RECORDS SUMMARY | 2024-05-13 14:45 | XMS_ITS | Continuity of Care Document ---
Author Organization [facility] Address [address] [place] [address] [place] [address] Phone Care Team Providers Care Linux Programmer Name Role Phone Wellington OD, Jono Unavailable Unavailable Procedures Procedure Date Eye Exam, New Patient Refraction Advance Directives Directive Yes / No Effective Date File Name No Information Encounters Encounter Description Practice Location Reason(s) For Visit Diagnoses Date Provider Providers Copied on Encounter [facility], [address] [place] [address] [address], [place], [place], [id number], tel:[phone] [facility] No Information Dec-2 5-200 8 Wellington OD Jono. [address] , [address], [place], [address], [place]. tel:[phone] Family History Family Member Type Diagnosis Age At Onset No Information Payers Payer name Insurance type Covered green party ID Authoriza tinehal(s) [facility] Commercial CI [id number] Social History Type Description Quantity Date Captured Comments Sex Male Smoking Status No Information Chief Complaint And Reason For Visit No Information Reason For Referral Reason For Referral No Information History Of Present Illness Encounter Date Complaint History Of Prese nt Illness No Information Functional Status Date Functional Assessmen t No Information Instructions Date Instruction Additional Infor mation No Information Assessments Type Assessment Date No Information Patient Care Teams Name Effective Dates (start - stop) Status Members No Information
--- OUTSIDE RECORDS SUMMARY | 2024-05-13 14:45 | XMS_ITS | Patient Health Summary ---
Author Organization [facility] Address [address] [place] [address] Care Team Providers Care Laborer Adjustable Steel Joist Name Role Phone Som Nelson MD Primary Care Provider [phone] Note from [facility],non-owned Affiliates and Associated Physician Practices is amultiple site organization consisting of ambulatory clinics and hospital sitesin [place], [place], [place] and [place]. This disclosure is being madepursuant to the Care Everywhere program and may not contain all information available regarding this patient. Last updated 18.[facility] Social History Tobacco Use Types Packs/Day Years Used Date Smoking Tobacco: Never Assessed Sex and Gender Information Value Date Recorded Sex Assigned at Not on file Gender Identity Not on file Sexual Orientation Not on file Procedures * DERMATOPATHOLOGY(Performed 10/01/2020) Results * DERMATOPATHOLOGY (10/01/2020 12:00 AM CDT) Case Report Dermatopathology Report ? Case: [id number] ? Authorizing Provider: ??Som Nelson MD ? Collected: ? 10/01/2020 12:00 AM ? Ordering Location: ? [facility] Care DermPath Lab ?Received: ?10/02/2020 11:11 AM ? Pathologist: ? Isamar Wadsworth, ? MD ? Specimen: ?Skin, right mid back ? 1 4:39 PM T DERMATOPATHOLOGY LABORATORY Final Diagnosis Specimen A. SKIN, right mid back: JUNCTIONAL MELANOCYTIC NEVUS, IRRITATED (D22.5) POST-INFLAMMATORY PIGMENT ALTERATION (L81.9) NOT PRESENT AT SAMPLED MARGIN 1 4:39 PM [facility] DERMATOPATHOLOGY LABORATORY Clinical History Changing lesion. Check margins. 1 4:39 PM [facility] DERMATOPATHOLOGY LABORATORY Gross Description Specimen A: Received is one formalin filled container labeled with the patient's name and designated right mid back. The specimen consists of a shave biopsy measuring [id number]. The margin is inked green. Jar 0. 1 4:39 PM T DERMATOPATHOLOGY LABORATORY Microscopic Description Specimen A. SKIN, right mid back: There are nests of melanocytes at the dermal-epidermal junction. MART-1/Melan-A immunohistochemical stain highlights the melanocytes as above. There is melanin pigment in the stratum corneum. This is abundant melanin within melanophages around the superficial vascular plexus. This lesion is not present at the sampled margin of the specimen. 1 4:39 PM CDT DERMATOPATHOLOGY LABORATORY Disclaimer An external and internal positive and negative controls are appropriate for the histochemical, immunohistochemical and immunofluorescence stain(s) in this case (if any), except where stated explicitly. The performance characteristics of the stain(s) cited in this report were developed and its performance characteristic determined by the Dermatopathology Laboratory at [facility], directed by Dr. Terell Mayfield. These tests need not be, and therefore are not, approved by the [place] Food and Drug Administration. The tests are used for clinical purposes. Billing Codes Specimen Charges Stain Charges 11864 1 27377 1 1 4:39 PM CDT DERMATOPATHOLOGY LABORATORY Embedded Images 1 4:39 PM CDT DERMATOPATHOLOGY LABORATORY Pathology/Cytolog y TISSUE SPECIMEN FROM SKIN / Unknown 10/01/2020 10/02/2020 11:11 AM CDT Som Nelson MD LAB - PATHOLOGY/CYTO LOGY ORDERABLES DERMATOPATHOLOGY LABORATORY [facility] - Department of Dermatology [facility] [address] [place] [address], [address] [phone] Care Teams Laborer Adjustable Steel Joist Relationship Specialty Start Date End Date Som Nelson MD [address] [place] [address] PCP - General 10/02/20
--- OUTSIDE RECORDS SUMMARY | 2024-05-13 14:45 | XMS_ITS | Encounter Summary ---
Author Organization [facility] Address [address] [place] [address] Care Team Providers Care Engineering Clerk Name Role Phone Som Nelson MD Primary Care Provider [phone] Encounter Details Date Type Department Care Team (Late st Contact Info) Description 10/02/2020 Lab Requisition [facility] Care DermPath Lab [address] [place] [address] Som Nelson MD [address] [place] [id number] Social History Tobacco Use Types Packs/Day Years Used Date Smoking Tobacco: Never Assessed Sex and Gender Information Value Date Recorded Sex Assigned at Not on file Gender Identity Not on file Sexual Orientation Not on file documented as of this encounter Plan of Treatment Not on file documented as of this encounter Procedures Procedure Name Priority Date/Time Associated Diagnosis Comments DERMATOPATHOLOGY Routine 10/01/2020 12:0 0 AM CDT documented in this encounter Results * DERMATOPATHOLOGY (10/01/2020 12:00 AM CDT) Case Report Dermatopathology Report ? Case: [id number] ? Authorizing Provider: ??Som Nelson MD ? Collected: ? 10/01/2020 12:00 AM ? Ordering Location: ? [facility] DermPath Lab ?Received: ?10/02/2020 11:11 AM ? Pathologist: ? Isamar Wadsworth, ? MD ? Specimen: ?Skin, right mid back ? 1 4:39 PM CDT DERMATOPATHOLOGY LABORATORY Final Diagnosis Specimen A. SKIN, right mid back: JUNCTIONAL MELANOCYTIC NEVUS, IRRITATED (D22.5) POST-INFLAMMATORY PIGMENT ALTERATION (L81.9) NOT PRESENT AT SAMPLED MARGIN 1 4:39 PM CDT DERMATOPATHOLOGY LABORATORY Clinical History Changing lesion. Check margins. 1 4:39 PM CDT DERMATOPATHOLOGY LABORATORY Gross Description Specimen A: Received is one formalin filled container labeled with the patient's name and designated right mid back. The specimen consists of a shave biopsy measuring [id number]. The margin is inked green. Jar 0. 1 4:39 PM CDT DERMATOPATHOLOGY LABORATORY Microscopic Description Specimen A. SKIN, [...] characteristic determined by the Dermatopathology Laboratory at [facility], directed by Dr. Terell Mayfield. These tests need not be, and therefore are not, approved by the [place] Food and Drug Administration. The tests are used for clinical purposes. Billing Codes Specimen Charges Stain Charges 79107 1 36063 1 1 4:39 PM CDT DERMATOPATHOLOGY LABORATORY Embedded Images 1 4:39 PM CDT DERMATOPATHOLOGY LABORATORY Pathology/Cytolog y TISSUE SPECIMEN FROM SKIN / Unknown 10/01/2020 10/02/2020 11:11 AM CDT Som Nelson MD LAB - PATHOLOGY/CYTO LOGY ORDERABLES DERMATOPATHOLOGY LABORATORY [facility] Department of Dermatology [address], [address] [phone] documented in this encounter Visit Diagnoses Not on filedocumented in this encounter Care Teams Engineering Clerk Relationship Specialty Start Date End Date Som Nelson MD [address] [place] [address] PCP - General 10/02/20 documented as of this encounter
--- OUTSIDE RECORDS SUMMARY | 2024-05-13 14:45 | XMS_ITS | Referral Summary ---
Author Organization [facility] Address [address] [place] [address] Care Team Providers Care Water Systems Engineer Name Role Phone Som Nelson MD Primary Care Provider [phone] Source Comments [facility],non-[facility] Affiliates and Associated Physician Practices is amultiple site organization consisting of ambulatory clinics and hospital sitesin [place], [place], [place] and [place]. This disclosure is being madepursuant to the Care Everywhere program and may not contain all information available regarding this patient. Last updated 18.[facility] Social History Tobacco Use Types Packs/Day Years Used Date Smoking Tobacco: Never Assessed Sex and Gender Information Value Date Recorded Sex Assigned at Not on file Gender Identity Not on file Sexual Orientation Not on file Plan of Treatment Not on file Care Teams Water Systems Engineer Relationship Specialty Start Date End Date Som Nelson MD [address] [place] [address] PCP - General 10/02/20
--- NOTE | 2024-05-13 14:48 | ECG_ITS ---
Test Date: 2024-05-13 15:00:23 Measurements Intervals [place] Rate: 80 P: 76 NE: 150 QRS: 14 QRSD: 106 T: 50 QT: 357 QTc: 413 Interpretive Statements SINUS RHYTHM POSSIBLE LEFT ATRIAL ENLARGEMENT INCOMPLETE RIGHT BUNDLE BRANCH BLOCK BASELINE ARTIFACT- I, II, III, AVR, AVL, AVF, V1-V6 BORDERLINE ECG No previous ECG available for comparison Electronically Signed On 05-14-2024 10:12:46 APPLIED RESEARCHER by Ta Borjas D.O.
--- NOTE | 2024-05-13 14:50 | ED_ITS ---
HPI - SOB/Dyspnea General Chief Complaint: Shortness of Breath/Dyspnea <Sylvie Villalta PA-C - Last Filed: 05/14/24 18:03> Stated Complaint: SOB x14 hours, hx copd <Sylvie Villalta PA-C - Last Filed: 05/14/24 18:03> Time Seen by Provider: 05/13/24 14:51 <Sylvie Villalta PA-C - Last Filed: 05/14/24 18:03> Focused HPI: This is a 58 year old male that presents to the ER for shortness of breath. Ongoing throughout the day. History of COPD. GENERAL: Ill-appearing, Respiratory distress HEAD: Normocephalic, atraumatic. CHEST: lung sounds diffusely diminished with wheezing HEART: Regular rate and rhythm.? NEURO: ?Alert and oriented x3. Patient screened in triage and initial orders placed.? ?Additional care and disposition to be based upon?diagnostic testing and treatment. <Sylvie Villalta PA-C - Last Filed: 05/14/24 18:03> History of Present Illness HPI Narrative: 58-year-old male with history of COPD presented emergency department for evaluation of worsening shortness of breath since yesterday. Patient arrived with increased work of breathing. <Colton Mercedes MD - Last Filed: 05/13/24 23:06> Related Data Allergies/Adverse Reactions: Allergies Allergy/AdvReac Type Severity Reaction Status Date / Time fexofenadine Allergy Severe Anaphylaxis Verified 05/13/24 14:43 <Sylvie Villalta PA-C - Last Filed: 05/14/24 18:03> Review of Systems 2 Review of Systems: All systems reviewed & are unremarkable except as noted in HPI and below <Colton Mercedes MD - Last Filed: 05/13/24 23:06> [facility] Past Medical History Medical History: Medical History (Updated 05/14/24 @ 09:30 by Zane Vaca MD) Tobacco dependence Hyperlipidemia Hypertension Chronic obstructive pulmonary disease Cocaine use Bicuspid aortic valve Anxiety Depression <Sylvie Villalta PA-C - Last Filed: 05/14/24 18:03> Surgical History Surgical History: Surgical History (Updated 05/13/24 @ 22:48 by Norma Garcia PA-C) History of tonsillectomy History of open reduction and internal fixation (ORIF) procedure repair left femur fracture History of inguinal hernia repair History of carpal tunnel release <Sylvie Villalta PA-C - Last Filed: 05/14/24 18:03> Family History Family History: Family History Father Hypertension Mother Family history of diabetes mellitus in first degree relative Hypertension Acute myocardial infarction Chronic obstructive pulmonary disease Diabetes mellitus Grandparent Family history of heart disease in male family member before age 55 Cerebrovascular accident Sibling Diabetes mellitus Sibling Asthma Chronic obstructive pulmonary disease <Sylvie Villalta PA-C - Last Filed: 05/14/24 18:03> Social History Social History: Social History (Updated 05/13/24 @ 22:50 by Norma Garcia PA-C) Social History: Surrogate medical decision maker: Irving Vitale, father. Code status: Full code. Smoking packs per day: 1 Smoking cigarettes per day: 20.0 Years smoked: 50 Smoking pack-years: 50.00 Smoking status: Current every day smoker Tobacco type: cigarettes and e-cigarettes/vaping Second hand tobacco smoke exposure: Yes Smoking end date: 04/13/11 Additional smoking assessment comments: quit smoking for about seven years, then picked it back up Alcohol intake: former Drinks per week: 1 Alcohol use details: former heavy drinker, now drinks rarely and in moderation Substance use: current Substance use type: marijuana and crack/cocaine Last use: last week Do You Feel Safe in your Home?: Yes Lack of Transportation: No Lack of Food: Never True Current Housing: I Have Housing Concerned About Future Housing: No Difficulty Paying Gas/Electric Bills: No Difficulty Paying for Meds: YES Currently Unemployed: No Education: High School Diploma/GED Difficulty w/ Childcare or Family Care: No Living arrangements: alone Additional living arrangements comments: . Occupation/Education: unemployed Spiritual care concerns: No <Sylvie Villalta PA-C - Last Filed: 05/14/24 18:03> Exam 2 Narrative: APPEARANCE: Ill-appearing with increased work of breathing HEAD: normocephalic, atraumatic. EYES: PERRLA/EOMI, conjunctivae clear. NOSE: Normal no drainage EARS:TMS clear with good light reflex. THROAT: Pharynx clear, no exudate. NECK: Supple. No adenopathy, no masses. RESPIRATORY: Minimal air movement but does have wheezing in all lung hernandez CARDIOVASCULAR: Regular rate and rhythm without murmurs rubs or gallops. ABDOMINAL: Soft, nontender, nondistended, normal bowel sounds MUSCULOSKELETAL: Moves all extremities. Strength/ROM intact, No edema, No calf tenderness. NEURO: Alert. Cranial nerves II through XII intact. Good gait. Good coordination SKIN: Warm, dry. Normal Color <Colton Mercedes MD - Last Filed: 05/13/24 23:06> Course Vital Signs Vital signs: Vital Signs Temperature 97.9 F 05/13/24 14:47 Pulse Rate 82 05/13/24 14:47 Respiratory Rate 24 H 05/13/24 14:47 Blood Pressure 182/84 H 05/13/24 14:47 Pulse Oximetry 96 05/13/24 14:47 Temperature 98.4 F 05/14/24 16:00 Pulse Rate 69 05/14/24 17:21 Respiratory Rate 28 H 05/14/24 16:00 Blood Pressure 138/82 05/14/24 16:00 Pulse Oximetry 95 05/14/24 16:00 Oxygen Delivery Nasal Cannula 05/14/24 16:00 Oxygen Flow Rate 3 05/14/24 16:00 Fraction of Inspired Oxygen 40 05/14/24 16:00 <Sylvie Villalta PA-C - Last Filed: 05/14/24 18:03> Vital Signs Temperature 97.9 F 05/13/24 14:47 Pulse Rate 82 05/13/24 14:47 Respiratory Rate 24 H 05/13/24 14:47 Blood Pressure 182/84 H 05/13/24 14:47 Pulse Oximetry 96 05/13/24 14:47 Temperature 98.4 F 05/14/24 16:00 Pulse Rate 69 05/14/24 17:21 Respiratory Rate 28 H 05/14/24 16:00 Blood Pressure 138/82 05/14/24 16:00 Pulse Oximetry 95 05/14/24 16:00 Oxygen Delivery Nasal Cannula 05/14/24 16:00 Oxygen Flow Rate 3 05/14/24 16:00 Fraction of Inspired Oxygen 40 05/14/24 16:00 <Colton Mercedes MD - Last Filed: 05/13/24 23:06> MDM - SOB/Dyspnea MDM Narrative Medical decision making narrative: 58-year-old male history of COPD continues to smoke present to the emergency department for evaluation for worsening shortness of breath. Due to patient's increased work of breathing upon arrival to the emergency department patient was treated with IV Solu-Medrol, 5 mg of nebulized albuterol, and patient was started on BiPAP at 14/7. Patient was also treated with IV Mag. On re-evaluation patient does still have wheeze but is improved. Patient was afebrile with no leukocytosis and hemoglobin of 16.3. Patient had no significant abnormalities on the CMP. ProBNP was 372. Patient was positive for influenza A. Chest x-ray showed no acute cardiopulmonary abnormality. <Colton Mercedes MD - Last Filed: 05/13/24 23:06> Differential Diagnosis Differential diagnosis: Likely acute exacerbation of chronic obstructive airways disease, community acquired pneumonia, asthma with exacerbation, pulmonary embolism and other <Colton Mercedes MD - Last Filed: 05/13/24 23:06> Lab Data Attestation: I reviewed the patient's lab results. <Colton Mercedes MD - Last Filed: 05/13/24 23:06> Result diagrams: 05/14/24 05:12 05/14/24 05:12 <Sylvie Villalta PA-C - Last Filed: 05/14/24 18:03> Labs: Lab Results 05/13/24 05/13/24 Range/Units 15:05 15:10 WBC 6.1 (4.5-10.0) K/mm3 RBC 5.59 (4.6-6.20) M/mm3 Hgb 16.3 (14.0-18.0) g/dL Hct 48.5 (42.0-52.0) % MCV 86.8 (80-100) fl MCH 29.2 (26-34) pg MCHC 33.6 (32-36) g/dl RDW 13.2 (11.5-14.5) % Plt Count 80 L D (150-375) k/mm3 MPV 12.4 H (7.4-10.4) fl Immature Gran % (Auto) Not Reportable Neut % (Auto) Not Reportable Lymph % (Auto) Not Reportable [place] % (Auto) Not Reportable Eos % (Auto) Not Reportable Baso % (Auto) Not Reportable Lymph # (Auto) Not Reportable [place] # (Auto) Not Reportable Eos # (Auto) Not Reportable Baso # (Auto) Not Reportable Abs Immat Gran (auto) Not Reportable Absolute Neuts (auto) Not Reportable Absolute Nucleated RBC Not Reportable Total Counted 100 Neutrophils % (Manual) 83 H (46-73) % Band Neutrophils % 2 (0-6) % Lymphocytes % (Manual) 7 L (18-44) % Monocytes % (Manual) 8 (3-9) % Eosinophils % (Manual) 0 (0-4) % Basophils % (Manual) 0 (0-1) % Nucleated RBC % Not Reportable Abs Neuts (Manual) 5.18 (1.3-6.7) K/mm3 Abs Lymphs (Manual) 0.42 L (1.1-4.5) K/mm3 Abs Monocytes (Manual) 0.48 (0.1-0.90) K/mm3 Absolute Eos (Manual) 0.00 L (0.02-0.50) K/mm3 Abs Basophils (Manual) 0.00 (0.0-0.1) K/mm3 Platelet Estimate Slightly decreased (Adequate) % Immature Plt Fraction 9.1 (0.9-11.2) % Schistocytes None seen PT 13.9 (11.1-14.7) Seconds INR 1.0 APTT 32.1 (22.3-36.8) Seconds Methemoglobin 0.3 (0-1.5) %THb Expiratory Pressure 7 CMH2O Inspiratory Pressure 14 CMH2O Sodium 136 L (137-145) mmol/L Potassium 4.2 (3.4-5.0) mmol/L Chloride 96 L (98-107) mmol/L Carbon Dioxide 29 (22-30) mmol/L Anion Gap 11 (4-12) mmol/L BUN 13 D (9-20) mg/dL Creatinine 0.61 L (0.7-1.3) mg/dL Estim Creat Clear Calc 117 ml/min Estimated GFR > 60 (59 - ) Glucose 113 H (65-110) mg/dL Calcium 9.4 (8.4-10.2) mg/dL Total Bilirubin 0.5 (0.2-1.3) mg/dL AST 35 (17-59) U/L ALT 23 (6-50) U/L Alkaline Phosphatase 63 (38-126) U/L NT-Pro-B Natriuret Pep 372 H (19.9-100) pg/mL Total Protein 8.0 (6.3-8.2) g/dL Albumin 4.6 (3.5-5.1) g/dL Influenza A (RT-PCR) Positive A (Negative) Influenza B (RT-PCR) Negative (Negative) RSV (RT-PCR) Negative (Negative) SARS-CoV-2 RNA (RT-PCR) Negative (Negative) <Sylvie Villalta PA-C - Last Filed: 05/14/24 18:03> Lab Results 05/13/24 05/13/24 Range/Units 15:05 15:10 WBC 6.1 (4.5-10.0) K/mm3 RBC 5.59 (4.6-6.20) M/mm3 Hgb 16.3 (14.0-18.0) g/dL Hct 48.5 (42.0-52.0) % MCV 86.8 (80-100) fl MCH 29.2 (26-34) pg MCHC 33.6 (32-36) g/dl RDW 13.2 (11.5-14.5) % Plt Count 80 L D (150-375) k/mm3 MPV 12.4 H (7.4-10.4) fl Immature Gran % (Auto) Not Reportable Neut % (Auto) Not Reportable Lymph % (Auto) Not Reportable Bartow % (Auto) Not Reportable Eos % (Auto) Not Reportable Baso % (Auto) Not Reportable Lymph # (Auto) Not Reportable [place] # (Auto) Not Reportable Eos # (Auto) Not Reportable Baso # (Auto) Not Reportable Abs Immat Gran (auto) Not Reportable Absolute Neuts (auto) Not Reportable Absolute Nucleated RBC Not Reportable Total Counted 100 Neutrophils % (Manual) 83 H (46-73) % Band Neutrophils % 2 (0-6) % Lymphocytes % (Manual) 7 L (18-44) % Monocytes % (Manual) 8 (3-9) % Eosinophils % (Manual) 0 (0-4) % Basophils % (Manual) 0 (0-1) % Nucleated RBC % Not Reportable Abs Neuts (Manual) 5.18 (1.3-6.7) K/mm3 Abs Lymphs (Manual) 0.42 L (1.1-4.5) K/mm3 Abs Monocytes (Manual) 0.48 (0.1-0.90) K/mm3 Absolute Eos (Manual) 0.00 L (0.02-0.50) K/mm3 Abs Basophils (Manual) 0.00 (0.0-0.1) K/mm3 Platelet Estimate Slightly decreased (Adequate) % Immature Plt Fraction 9.1 (0.9-11.2) % Schistocytes None seen PT 13.9 (11.1-14.7) Seconds INR 1.0 APTT 32.1 (22.3-36.8) Seconds Methemoglobin 0.3 (0-1.5) %THb Expiratory Pressure 7 CMH2O Inspiratory Pressure 14 CMH2O Sodium 136 L (137-145) mmol/L Potassium 4.2 (3.4-5.0) mmol/L Chloride 96 L (98-107) mmol/L Carbon Dioxide 29 (22-30) mmol/L Anion Gap 11 (4-12) mmol/L BUN 13 D (9-20) mg/dL Creatinine 0.61 L (0.7-1.3) mg/dL Estim Creat Clear Calc 117 ml/min Estimated GFR > 60 (59 - ) Glucose 113 H (65-110) mg/dL Calcium 9.4 (8.4-10.2) mg/dL Total Bilirubin 0.5 (0.2-1.3) mg/dL AST 35 (17-59) U/L ALT 23 (6-50) U/L Alkaline Phosphatase 63 (38-126) U/L NT-Pro-B Natriuret Pep 372 H (19.9-100) pg/mL Total Protein 8.0 (6.3-8.2) g/dL Albumin 4.6 (3.5-5.1) g/dL Influenza A (RT-PCR) Positive A (Negative) Influenza B (RT-PCR) Negative (Negative) RSV (RT-PCR) Negative (Negative) SARS-CoV-2 RNA (RT-PCR) Negative (Negative) <Colton Mercedes MD - Last Filed: 05/13/24 23:06> ABG Data ABG results: 05/13/24 15:10 Puncture Site Right radial ABG pH 7.384 ABG pCO2 42.6 ABG pO2 136.9 H ABG PO2/FiO2 Ratio 3.42 ABG HCO3 24.9 ABG O2 Saturation 98.7 ABG O2 Content 21.9 ABG Base Excess -0.3 A-a Gradient 99.3 Oxyhemoglobin 97.6 Carboxyhemoglobin 0.8 Reduced Hemoglobin 1.3 Total Hemoglobin 15.8 O2 Delivery Device Non-invasive vent O2 Liters/Min Not Reportable Vent Rate 4 FiO2 40 <Sylvie Villalta PA-C - Last Filed: 05/14/24 18:03> 05/13/24 15:10 Puncture Site Right radial ABG pH 7.384 ABG pCO2 42.6 ABG pO2 136.9 H ABG PO2/FiO2 Ratio 3.42 ABG HCO3 24.9 ABG O2 Saturation 98.7 ABG O2 Content 21.9 ABG Base Excess -0.3 A-a Gradient 99.3 Oxyhemoglobin 97.6 Carboxyhemoglobin 0.8 Reduced Hemoglobin 1.3 Total Hemoglobin 15.8 O2 Delivery Device Non-invasive vent O2 Liters/Min Not Reportable Vent Rate 4 FiO2 40 <Colton Mercedes MD - Last Filed: 05/13/24 23:06> Imaging Data Radiologist's impression: Impressions Chest X-Ray 05/13/24 16:18 IMPRESSION: 1. No acute cardiopulmonary disease. <Colton Mercedes MD - Last Filed: 05/13/24 23:06> Critical Care Time Critical Care Time Critical Care Time: Yes <Sylvie Villalta PA-C - Last Filed: 05/14/24 18:03> Total Critical Care Time: 35 <Sylvie Villalta PA-C - Last Filed: 05/14/24 18:03> Discharge Plan Discharge Clinical Impression: Influenza A COPD (chronic obstructive pulmonary disease) Qualifiers: COPD type: unspecified COPD Qualified Code(s): J44.9 - Chronic obstructive pulmonary disease, unspecified <Sylvie Villalta PA-C - Last Filed: 05/14/24 18:03> Patient Disposition: Still a Patient <Sylvie Villalta PA-C - Last Filed: 05/14/24 18:03> Condition: Serious <Sylvie Villalta PA-C - Last Filed: 05/14/24 18:03>
--- NOTE | 2024-05-13 15:12 | PC.NURSE ---
RT at bedside with BIPAP
[2024-05-13 15:15] LABS: Hematocrit 48.5 % (42.0-52.0); Hemoglobin 16.3 g/dL (14.0-18.0); Immature Platelet Fraction Pct 9.1 % (0.9-11.2); Mean Corpuscular HGB Conc 33.6 g/dl (32-36); Mean Corpuscular Hemoglobin 29.2 pg (26-34); Mean Corpuscular Volume 86.8 fl (80-100); Mean Platelet Volume 12.4 fl (7.4-10.4); Platelet Count Result 80 k/mm3 (150-375); Red Blood Count 5.59 M/mm3 (4.6-6.20); Red Cell Distribution Width 13.2 % (11.5-14.5); White Blood Count 6.1 K/mm3 (4.5-10.0)
[2024-05-13] MEDS: IPRATROPIUM 0.5 MG/ALBUTEROL SULFATE 2.5 MG AMPUL.NEB 3 ML INHALATION ×2 (15:15→22:17)
[2024-05-13] MEDS: MAGNESIUM SULF 1 GM/D5W 100 ML 1 GM/100 ML BAG IVPB (15:17)
[2024-05-13] MEDS: methylPREDNISolone SOD SUCC 125 MG VIAL IV PUSH (15:17)
[2024-05-13 15:22] LABS: Alanine Aminotransferase 23 U/L (6-50); Albumin Level 4.6 g/dL (3.5-5.1); Alkaline Phosphatase 63 U/L (38-126); Anion Gap 11 mmol/L (4-12); Aspartate Amino Transferase 35 U/L (17-59); Bilirubin,Total 0.5 mg/dL (0.2-1.3); Blood Urea Nitrogen 13 mg/dL (9-20); Calcium 9.4 mg/dL (8.4-10.2); Carbon Dioxide 29 mmol/L (22-30); Chloride 96 mmol/L (98-107); Estimated CRCL calculation 117 ml/min; Estimated Glomerular Filt Rate > 60; Glucose 113 mg/dL (65-110); Potassium 4.2 mmol/L (3.4-5.0); Sodium 136 mmol/L (137-145)
[2024-05-13 15:25] LABS: Alveolar/Arterial O2 Gradient 99.3 mmHg; Base Excess ABG -0.3 mEq/l (+/-2.0); Carboxyhemoglobin 0.8 % THb (0-2.0); Fractional Inspired Oxygen 40 %; HCO3 ABG 24.9 mEq/l (22.0-26.0); Methemoglobin ABG 0.3 %THb (0-1.5); Oxygen Content ABG 21.9 %vol (16.0-22.0); Oxygen Saturation ABG 98.7 % (95.0-100.0); Oxyhemoglobin 97.6 % THb (90.0-100.0); PCO2 ABG 42.6 mmHg (35.0-45.0); PO2 ABG 136.9 mmHg (80.0-100.0); PO2 FiO2 Ratio Arterial Blood 3.42 %; Reduced Hemoglobin 1.3 %THb (0-5.0); Total Hemoglobin 15.8 g/dL (12.0-18.0); pH ABG 7.384 (7.350-7.450)
[2024-05-13 15:26] LABS: Device NON-INVASIVE VENT; Modified Allen's Test Pass; Site Drawn RIGHT RADIAL
[2024-05-13 15:27] LABS: Non-Invasive Expiratory Pressure 7 CMH2O; Non-Invasive Inspiratory Pressure 14 CMH2O; Non-Invasive Vent Rate 4 /MIN
[2024-05-13 15:34] LABS: NT Pro B Type Natriuretic Pept 372 pg/mL (19.9-100)
[2024-05-13 15:35] LABS: Partial Thromboplastin Time 32.1 Seconds (22.3-36.8); Prothrombin Time 13.9 Seconds (11.1-14.7)
--- OUTSIDE RECORDS SUMMARY | 2024-05-13 15:41 | XMS_ITS | Encounter Summary ---
Author Organization [facility] Address [address] [place] [address] Care Team Providers Care Consulting Practice Director Name Role Phone Som Nelson MD Primary Care Provider [phone] Encounter Details Date Type Department Care Team (Late st Contact Info) Description 10/02/2020 Lab Requisition [facility] Care Derm[facility] Lab [address], [place] [place] [address] Som Nelson MD [address] [place] [id number] Social History Tobacco Use Types Packs/Day Years [...] CDT) Case Report Dermatopathology Report ? Case: [id number] ? Authorizing Provider: ??Som Nelson MD ? Collected: ? 10/01/2020 12:00 AM ? Ordering Location: ? [facility] DermPath Lab ?Received: ?10/02/2020 11:11 AM [...] specimen consists of a shave biopsy measuring [id number]. The margin is inked green. Jar 0. [...] characteristic determined by the Dermatopathology Laboratory at [facility], directed by Dr. Terell Mayfield. These tests need not be, and therefore are not, approved by the [place] Food and Drug Administration. The tests are used for clinical purposes. Billing Codes Specimen Charges Stain Charges 07001 1 61417 1 1 4:39 PM CDT DERMATOPATHOLOGY LABORATORY Embedded Images 1 4:39 PM CDT DERMATOPATHOLOGY LABORATORY Pathology/Cytolog y TISSUE SPECIMEN FROM SKIN / Unknown 10/01/2020 10/02/2020 11:11 AM CDT Som Nelson MD LAB - PATHOLOGY/CYTO LOGY ORDERABLES DERMATOPATHOLOGY LABORATORY [facility] Department of Dermatology [address], [address] [phone] documented in this encounter Visit Diagnoses Not on filedocumented in this encounter Care Teams Consulting Practice Director Relationship Specialty Start Date End Date Som Nelson MD [address] [place] [address] PCP - General 10/02/20 documented as of this encounter
--- OUTSIDE RECORDS SUMMARY | 2024-05-13 15:41 | XMS_ITS | Clinical Summary ---
Author Organization [facility] Address [address] [place] [address] Care Team Providers Care Green Chain Marker Name Role Phone Som Nelson MD Primary Care Provider [phone] Source Comments [facility],non-owned Affiliates and Associated Physician Practices is amultiple site organization consisting of ambulatory clinics and hospital sitesin [place], [place], [place] and [place]. This disclosure is being madepursuant to the Care Everywhere program and may not contain all information available regarding this patient. Last updated 18.[facility] [employer] Social History Tobacco Use Types Packs/Day Years [...] age to complete this topic Care Teams Green Chain Marker Relationship Specialty Start Date End Date Som Nelson MD [address] [place] [address] PCP - General 10/02/20
--- OUTSIDE RECORDS SUMMARY | 2024-05-13 15:41 | XMS_ITS | Patient Health Summary ---
Author Organization [facility] Address [address] [place] [address] Care Team Providers Care Channeler Outsole Name Role Phone Som Nelson MD Primary Care Provider [phone] Note from [facility],non-owned Affiliates and Associated Physician Practices is amultiple site organization consisting of ambulatory clinics and hospital sitesin [place], [place], [place] and [place]. This disclosure is being madepursuant to the Care Everywhere program and may not contain all information available regarding this patient. Last updated 18.[facility] Social History Tobacco Use Types Packs/Day Years Used Date Smoking Tobacco: Never Assessed Sex and Gender Information Value Date Recorded Sex Assigned at Not on file Gender Identity Not on file Sexual Orientation Not on file Procedures * DERMATOPATHOLOGY(Performed 10/01/2020) Results * DERMATOPATHOLOGY (10/01/2020 12:00 AM CDT) Case Report Dermatopathology Report ? Case: [id number] ? Authorizing Provider: ??Som Nelson MD ? Collected: ? 10/01/2020 12:00 AM ? Ordering Location: ? [facility] Care DermPath Lab ?Received: ?10/02/2020 11:11 AM ? Pathologist: ? Isamar Wadsworth, ? MD ? Specimen: ?Skin, right mid back ? 1 4:39 PM T DERMATOPATHOLOGY LABORATORY Final Diagnosis Specimen A. SKIN, right mid back: JUNCTIONAL MELANOCYTIC NEVUS, IRRITATED (D22.5) POST-INFLAMMATORY PIGMENT ALTERATION (L81.9) NOT PRESENT AT SAMPLED MARGIN 1 4:39 PM [facility] DERMATOPATHOLOGY LABORATORY Clinical History Changing lesion. Check margins. 1 4:39 PM [facility] DERMATOPATHOLOGY LABORATORY Gross Description Specimen A: Received is one formalin filled container labeled with the patient's name and designated right mid back. The specimen consists of a shave biopsy measuring [id number]. The margin is inked green. Jar 0. [...] characteristic determined by the Dermatopathology Laboratory at [facility], directed by Dr. Terell Mayfield. These tests need not be, and therefore are not, approved by the [place] Food and Drug Administration. The tests are used for clinical purposes. Billing Codes Specimen Charges Stain Charges 97408 1 28712 1 1 4:39 PM CDT DERMATOPATHOLOGY LABORATORY Embedded Images 1 4:39 PM CDT DERMATOPATHOLOGY LABORATORY Pathology/Cytolog y TISSUE SPECIMEN FROM SKIN / Unknown 10/01/2020 10/02/2020 11:11 AM CDT Som Nelson MD LAB - PATHOLOGY/CYTO LOGY ORDERABLES DERMATOPATHOLOGY LABORATORY [facility] - Department of Dermatology [facility] Medicine [address] [place] [address], [address] [phone] Care Teams Channeler Outsole Relationship Specialty Start Date End Date Som Nelson MD [address] [place] [address] PCP - General 10/02/20
--- OUTSIDE RECORDS SUMMARY | 2024-05-13 15:41 | XMS_ITS | Referral Summary ---
Author Organization [facility] Address [address] [place] [address] Care Team Providers Care Roller Stitcher Name Role Phone Som Nelson MD Primary Care Provider [phone] Source Comments [facility],non-[facility] Affiliates and Associated Physician Practices is amultiple site organization consisting of ambulatory clinics and hospital sitesin [place], [place], [place] and [place]. This disclosure is being madepursuant to the Care Everywhere program and may not contain all information available regarding this patient. Last updated 18.[facility] Social History Tobacco Use Types Packs/Day Years Used Date Smoking Tobacco: Never Assessed Sex and Gender Information Value Date Recorded Sex Assigned at Not on file Gender Identity Not on file Sexual Orientation Not on file Plan of Treatment Not on file Care Teams Roller Stitcher Relationship Specialty Start Date End Date Som Nelson MD [address] [place] [address] PCP - General 10/02/20
--- OUTSIDE RECORDS SUMMARY | 2024-05-13 15:41 | XMS_ITS | Continuity of Care Document ---
Author Organization [facility] Address [address] [place] [address] [place] [address] Phone Care Team Providers Care Discotheque Dancer Name Role Phone Wellington OD, Jono Unavailable Unavailable Procedures Procedure Date Eye Exam, New Patient Refraction Advance Directives Directive Yes / No Effective Date File Name No Information Encounters Encounter Description Practice Location Reason(s) For Visit Diagnoses Date Provider Providers Copied on Encounter [facility], [address] [place] [address] [address], [place], [place], [id number], tel:[phone] [facility] No Information Dec-2 5-200 8 Wellington OD Jono. [address] , [address], [place], [address], [place]. tel:[phone] Family History Family Member Type Diagnosis Age At Onset No Information Payers Payer name Insurance type Covered republican ID Authoriza tinehal(s) [facility] Commercial CI [id number] Social History Type Description Quantity Date Captured [...]
[2024-05-13 15:49] LABS: Influenza A QL RT-PCR Positive (Negative); Influenza B QL RT-PCR Negative (Negative); RSV RNA, RT-PCR Negative (Negative); SARS-CoV-2 RNA PCR Negative (Negative)
[2024-05-13 15:54] LABS: Band Neutrophils Percent 2 % (0-6); Basophils Percent Manual 0 % (0-1); Eosinophils Percent Manual 0 % (0-4); Lymphocytes Absolute Manual 0.42 K/mm3 (1.1-4.5); Lymphocytes Percent Manual 7 % (18-44); Monocytes Absolute Manual 0.48 K/mm3 (0.1-0.90); Monocytes Percent Manual 8 % (3-9); Neutrophils Absolute Manual 5.18 K/mm3 (1.3-6.7); Neutrophils Percent Manual 83 % (46-73); Total Cells Counted 100
[2024-05-13 15:55] LABS: Platelet Estimate Slightly Decreased (Adequate); Schistocytes None Seen
[2024-05-13] MEDS: methylPREDNISolone SOD SUCC 125 MG VIAL 60 MG IV PUSH ×2 (18:24→23:55)
--- NOTE | 2024-05-13 18:46 | PM.IMHP ---
H&P: HPI History of Present Illness Date/Time: 05/13/24 18:45 Chief Complaint: Shortness of breath. Narrative: This is a 58-year-old male smoker with chronic obstructive pulmonary disease, hypertension, hyperlipidemia, and illicit substance use who presented to the emergency department via private vehicle for evaluation of shortness of breath. The patient provides the following history. He has not been feeling well for the last 2 days with symptoms to include subjective fever, body aches, cough, shortness of breath, and difficulties getting in a deep breath. He has also had nausea and some diarrhea. Shortness of breath has gotten worse throughout the course of the day and on presentation tree triage she was in moderate respiratory distress with significant wheezing and diminished lung sounds. He is unaware of any sick contacts and denies syncope, near syncope, sinus congestion, sore throat, exertional chest pain, pleuritic pain, orthopnea, paroxysmal nocturnal dyspnea, edema, and calf pain. In the ED: He presented to triage with moderate work of breathing and significantly diminished lung sounds and wheezing. He was administered a nebulizer, steroids, and magnesium sulfate and was placed on BiPAP with improvement. He has been afebrile since arrival with stable blood pressures. Labs are significant for a WBC count of 6.1, hemoglobin 16.3, platelet 80, sodium 136, chloride 96, BUN 13, creatinine 0.61, glucose 113, proBNP 372. He tested positive for influenza A. Chest x-ray showed no acute findings. He has been started on oseltamivir and is being admitted in this setting for further treatment. Review of Systems Review of Systems: 12 systems were reviewed and are negative except for as per HPI. FOR[facility]LY [facility], LATER [facility] Past Medical History Medical History (Updated 05/13/24 @ 22:53 by Norma Garcia PA-C) Tobacco dependence Hyperlipidemia Hypertension Chronic obstructive pulmonary disease Cocaine use Bicuspid aortic valve Anxiety Depression Surgical History Surgical History (Updated 05/13/24 @ 22:48 by Norma Garcia PA-C) History of tonsillectomy History of open reduction and internal fixation (ORIF) procedure repair left femur fracture History of inguinal hernia repair History of carpal tunnel release Family History Family History Father Hypertension Mother Family history of diabetes mellitus in first degree relative Hypertension Acute myocardial infarction Chronic obstructive pulmonary disease Diabetes mellitus Grandparent Family history of heart disease in male family member before age 55 Cerebrovascular accident Sibling Diabetes mellitus Sibling Asthma Chronic obstructive pulmonary disease Social History Social History (Updated 05/13/24 @ 22:50 by Norma Garcia PA-C) Social History: Surrogate medical decision maker: Irving Vitale, father. Code status: Full code. Smoking packs per day: 1 Smoking cigarettes per day: 20.0 Years smoked: 50 Smoking pack-years: 50.00 Smoking status: Current every day smoker Tobacco type: cigarettes and e-cigarettes/vaping Second hand tobacco smoke exposure: Yes Smoking end date: 04/13/11 Additional smoking assessment comments: quit smoking for about seven years, then picked it back up Alcohol intake: former Drinks per week: 1 Alcohol use details: former heavy drinker, now drinks rarely and in moderation Substance use: current Substance use type: marijuana and crack/cocaine Last use: last week Do You Feel Safe in your Home?: Yes Lack of Transportation: No Lack of Food: Never True Current Housing: I Have Housing Concerned About Future Housing: No Difficulty Paying Gas/Electric Bills: No Difficulty Paying for Meds: YES Currently Unemployed: No Education: High School Diploma/GED Difficulty w/ Childcare or Family Care: No Living arrangements: alone Additional living arrangements comments: . Occupation/Education: unemployed Spiritual care concerns: No Meds Home Medications and Allergies Home Medications ?Medication ?Instructions ?Recorded ?Confirmed ?Type nebulizers (Aeroneb Go Nebulizer) #1 ea 07/16/21 05/13/24 Rx guaifenesin 600 mg tablet, 600 mg PO Q12HR #14 tabs 08/15/21 05/13/24 Rx extended release 12 hr (Mucus Relief ER) albuterol sulfate 2.5 mg/3 mL 2.5 mg (3 mL) inhalation Q6H PRN 09/13/21 05/13/24 Rx (0.083 %) solution for nebulization shortness of breath or wheezing #75 mL hydrocodone 5 mg-acetaminophen 325 1 tablet PO Q4H PRN pain #5 tabs 09/20/21 05/13/24 Rx mg tablet albuterol sulfate 90 mcg/actuation 1 inh inhalation Q6H PRN Shortness 01/25/22 05/13/24 Rx aerosol inhaler (Ventolin HFA) Of Breath Or Wheezing #8.5 grams budesonide-formoterol HFA 160 2 puff inhalation Q12H #10.2 grams 04/13/22 05/13/24 Rx mcg-4.5 mcg/actuation aerosol inhaler (Symbicort) Allergies Allergy/AdvReac Type Severity Reaction Status Date / Time fexofenadine Allergy Severe Anaphylaxis Verified 05/13/24 14:43 Vital Signs Vital Signs - 24 hr 05/13/24 14:47 05/13/24 14:48 05/13/24 15:02 Temperature 97.9 F Pulse Rate 82 85 Respiratory Rate 24 H 26 H Blood Pressure 182/84 H 172/93 H Pulse Oximetry 96 97 96 Oxygen Delivery Room Air Fraction of Inspired Oxygen 05/13/24 15:10 05/13/24 15:15 05/13/24 15:21 Temperature Pulse Rate 79 75 Respiratory Rate 21 H 22 H Blood Pressure Pulse Oximetry 100 Oxygen Delivery BiPAP BiPAP Fraction of Inspired Oxygen 05/13/24 15:21 05/13/24 15:35 05/13/24 16:22 Temperature Pulse Rate 80 75 74 Respiratory Rate 26 H 22 H 28 H Blood Pressure 169/89 H 134/79 Pulse Oximetry 100 97 Oxygen Delivery Fraction of Inspired Oxygen 05/13/24 17:10 05/13/24 17:10 05/13/24 17:39 Temperature Pulse Rate 74 74 69 Respiratory Rate 30 H 30 H 28 H Blood Pressure 128/70 Pulse Oximetry 99 99 98 Oxygen Delivery BiPAP BiPAP Fraction of Inspired Oxygen 40 05/13/24 18:16 Temperature Pulse Rate 67 Respiratory Rate 24 H Blood Pressure 122/58 L Pulse Oximetry 99 Oxygen Delivery Fraction of Inspired Oxygen Exam Narrative: General: Moderately ill-appearing male sitting up in bed on BiPAP. Weight: 85.7 kg. BMI: 27.1. HEENT: PERRL, EOMI. Sclera anicteric. Mucous membranes appear tacky to the BiPAP. Neck: Supple. No JVD or lymphadenopathy. Respiratory: On BiPAP and looks comfortable. Lung sounds are significantly diminished throughout with diffuse end-expiratory wheezing. Occasional rhonchi which improved with wet sounding cough. Cardiovascular: Regular rate and rhythm with S1-S2. Gastrointestinal: Abdomen is soft, nontender, and nondistended with positive bowel sounds. Skin: Warm and dry. Extremities: No cyanosis, clubbing, or significant edema. Radial and pedal pulses intact. Neurological: Alert. Cranial nerves 2-12 are grossly intact. No gross focal deficits to casual conversation. Psychiatric: Cooperative with appropriate mood and flat affect. H&P: Results Labs Labs: Short CBC 05/13/24 Range/Units 15:05 WBC 6.1 (4.5-10.0) K/mm3 Hgb 16.3 (14.0-18.0) g/dL Hct 48.5 (42.0-52.0) % Plt Count 80 L D (150-375) k/mm3 BMP 05/13/24 15:05 Sodium 136 L Potassium 4.2 Chloride 96 L Carbon Dioxide 29 BUN 13 D Creatinine 0.61 L Glucose 113 H Calcium 9.4 Liver Function 05/13/24 Range/Units 15:05 Total Bilirubin 0.5 (0.2-1.3) mg/dL AST 35 (17-59) U/L ALT 23 (6-50) U/L Alkaline Phosphatase 63 (38-126) U/L Albumin 4.6 (3.5-5.1) g/dL Impressions Chest X-Ray 05/13/24 16:18 IMPRESSION: 1. No acute cardiopulmonary disease. ABG ABG results: 05/13/24 15:10 Puncture Site Right radial ABG pH 7.384 ABG pCO2 42.6 ABG pO2 136.9 H ABG PO2/FiO2 Ratio 3.42 ABG HCO3 24.9 ABG O2 Saturation 98.7 ABG O2 Content 21.9 ABG Base Excess -0.3 A-a Gradient 99.3 Oxyhemoglobin 97.6 Carboxyhemoglobin 0.8 Reduced Hemoglobin 1.3 Total Hemoglobin 15.8 O2 Delivery Device Non-invasive vent O2 Liters/Min Not Reportable Vent Rate 4 FiO2 40 Assessment and Plan Assessment and plan (1) Acute respiratory failure with hypoxia: Code(s): J96.01 - Acute respiratory failure with hypoxia Status: Acute (2) Acute exacerbation of chronic obstructive pulmonary disease: Code(s): J44.1 - Chronic obstructive pulmonary disease with (acute) exacerbation Status: Acute (3) Influenza A: Code(s): J10.1 - Influenza due to other identified influenza virus with other respiratory manifestations Status: Acute (4) Thrombocytopenia: Code(s): D69.6 - Thrombocytopenia, unspecified Status: Acute (5) Tobacco dependence: Code(s): F17.200 - Nicotine dependence, unspecified, uncomplicated Status: Acute (6) Polysubstance abuse: Code(s): F19.10 - Other psychoactive substance abuse, uncomplicated Status: Acute Plan The patient presented to the emergency department with shortness of breath and other symptoms over the past couple of days as detailed in HPI. Labs, imaging, EKG, and all reports were personally reviewed. He presented to triage in respiratory distress and was placed on BiPAP immediately. He is seems to be doing much better in that regard and we will trial off the BiPAP to nasal cannula. He clinically has a COPD exacerbation precipitated by influenza A. He has been started on bronchodilators, prednisone, and oseltamivir. Platelet count has been low in the past but not this low. Etiology is not entirely clear. Continue to monitor for now. Smoking cessation is encouraged and he declines the need for nicotine patch at this time. Additionally he uses marijuana and cocaine recreationally and cessation was advised. His home medications will be reviewed and resumed as appropriate. Findings and treatment plan were discussed with the patient. Questions were solicited and answered to satisfaction. The patient's medical management will be taken over by the hospitalist team in a.m. Quality VTE Prophylaxis VTE prophylaxis: mechanical ordered If No VTE Prophylaxis Answer both mechanical and pharmacologic: Reason no pharmacologic proph: medical contraindication thrombocytopenia Hospitalist MIPS Advance Care Plan I have confirmed that the patient's Advanced Care Plan is present, code status is documented, or surrogate decision maker is listed in patient medical record.: Yes Medication Reconciliation The patient is not eligible for med reconciliation; the patient is in a emergent medical situation where delaying treatment would jeopardize the patients health.: Yes
--- NOTE | 2024-05-13 18:57 | PC.NURSE ---
DRAKE Green at bedside VORB to place pt on 4L NC and off BIPAP. Pt oxygen 95%.
--- NOTE | 2024-05-13 19:05 | ADMGEN ---
This patient, Tenzin Vitale, was admitted to Intensive Care Unit-5. Patient/family oriented to hospital policies and general routines including ID bracelet, bed and alarms, visiting hours, pain management, procedures, bathroom and other care routines, personal items, smoking policy, room service/diet, and visiting hours. Information on how to activate the Rapid Response Team has been discussed. Patient/Family are encouraged to report perceived risks to care and to ask questions if they do not understand what they are told or what they should do.
[2024-05-13] MEDS: OSELTAMIVIR PHOSPHATE 75 MG CAPSULE PO (20:44)
[2024-05-13] MEDS: AZITHROMYCIN 250 MG TABLET 500 MG PO (23:55)
[2024-05-13] MEDS: guaiFENesin 12 HR 600 MG TABCR 1200 MG PO (23:55)
[2024-05-14] VITALS (25 sets, daily range): BP systolic 109–138; BP diastolic 54–92; PULSE 61–91; RESP 18–34; TEMP 36.4–37.2; O2SAT 93–96
[2024-05-14] MEDS: IPRATROPIUM 0.5 MG/ALBUTEROL SULFATE 2.5 MG AMPUL.NEB 3 ML INHALATION ×4 (01:48→20:35)
[2024-05-14] MEDS: ACETAMINOPHEN 325 MG TABLET 650 MG PO ×2 (04:04→20:27)
[2024-05-14 05:23] LABS: Hematocrit 43.4 % (42.0-52.0); Hemoglobin 14.8 g/dL (14.0-18.0); Immature Platelet Fraction Pct 8.7 % (0.9-11.2); Mean Corpuscular HGB Conc 34.1 g/dl (32-36); Mean Corpuscular Hemoglobin 29.5 pg (26-34); Mean Corpuscular Volume 86.5 fl (80-100); Mean Platelet Volume 12.2 fl (7.4-10.4); Red Blood Count 5.02 M/mm3 (4.6-6.20); Red Cell Distribution Width 12.9 % (11.5-14.5); White Blood Count 4.5 K/mm3 (4.5-10.0)
[2024-05-14 05:24] LABS: Platelet Count Result 80 k/mm3 (150-375)
[2024-05-14 05:47] LABS: Anion Gap 14 mmol/L (4-12); Blood Urea Nitrogen 20 mg/dL (9-20); Calcium 8.7 mg/dL (8.4-10.2); Carbon Dioxide 23 mmol/L (22-30); Chloride 98 mmol/L (98-107); Estimated CRCL calculation 115 ml/min; Estimated Glomerular Filt Rate > 60; Glucose 205 mg/dL (65-110); Potassium 3.5 mmol/L (3.4-5.0); Sodium 135 mmol/L (137-145)
[2024-05-14] MEDS: methylPREDNISolone SOD SUCC 125 MG VIAL 60 MG IV PUSH ×4 (06:00→23:08)
[2024-05-14] MEDS: FLUTICASONE/SALMETEROL 115-21 MCG INHALER 1 PUFF 2 PUFF INHALATION ×2 (07:56→20:58)
[2024-05-14] MEDS: INSULIN ASPART (*BKC) 100 UNITS/ML SUB-Q (08:00)
[2024-05-14] MEDS: OSELTAMIVIR PHOSPHATE 75 MG CAPSULE PO ×2 (08:52→20:28)
[2024-05-14] MEDS: POTASSIUM CHLORIDE 20 MEQ ER TABLET 40 MEQ PO (08:52)
[2024-05-14] MEDS: AZITHROMYCIN 250 MG TABLET PO (08:52)
[2024-05-14] MEDS: guaiFENesin 12 HR 600 MG TABCR 1200 MG PO ×2 (08:53→20:28)
--- NOTE | 2024-05-14 09:26 | PM.IMPN ---
Progress Note: A&P Assessment and Plan (1) Acute respiratory failure with hypoxia: Code(s): J96.01 - Acute respiratory failure with hypoxia Status: Acute Assessment and Plan: Acute respiratory failure secondary to exacerbation of COPD likely precipitated by influenza A infection Vape patient was on BiPAP but now clinically improved and down to nasal cannula. Continue BiPAP p.r.n. and at night Bronchodilators, Solu-Medrol ABG and chest X reviewed Continue Tamiflu and isolation Incentive spirometry Continue azithromycin (2) Acute exacerbation of chronic obstructive pulmonary disease: Code(s): J44.1 - Chronic obstructive pulmonary disease with (acute) exacerbation Status: Acute Assessment and Plan: See above (3) Influenza A: Code(s): J10.1 - Influenza due to other identified influenza virus with other respiratory manifestations Status: Acute Assessment and Plan: See above (4) Thrombocytopenia: Code(s): D69.6 - Thrombocytopenia, unspecified Status: Acute Assessment and Plan: Could be secondary to viral infection and drug use Monitor at this time Hold Lovenox (5) Tobacco dependence: Code(s): F17.200 - Nicotine dependence, unspecified, uncomplicated Status: Acute Assessment and Plan: Patient was counseled and encouraged to quit smoking (6) Polysubstance abuse: Code(s): F19.10 - Other psychoactive substance abuse, uncomplicated Status: Acute Assessment and Plan: Patient was counseled to quit abusing tried (7) Hyperglycemia: Code(s): R73.9 - Hyperglycemia, unspecified Status: Acute Assessment and Plan: Likely secondary to steroids, add sliding scale insulin for monitoring and treatment (8) Electrolyte abnormality: Code(s): E87.8 - Other disorders of electrolyte and fluid balance, not elsewhere classified Status: Acute Assessment and Plan: Replace low potassium (9) Hypertension: Code(s): I10 - Essential (primary) hypertension Status: Acute Assessment and Plan: Patient has history of hypertension in the record but is not currently on any medication as an outpatient Current blood pressure elevation could be secondary to respiratory distress. Add p.r.n. hydralazine and if blood pressure consistently elevated will add antihypertensive medication Plan DVT prophylaxis -SCD due to thrombocytopenia. Nutrition -diet ordered Code Status - Full Code Subjective Date/time seen: 05/14/24 Patient wore BiPAP overnight and states that he feels significantly better this morning. He continues to have cough which is productive with greenish sputum. He denies any chest pain but shortness of breath is improved. He denies any fever. Overall his breathing is better. He still feels short of breath on exertion. All other systems were reviewed and were negative . Afebrile. Currently on 3 L nasal cannula. Other vitals acceptable Review of Systems Review of Systems: All systems reviewed & are unremarkable except as noted in HPI and below (HPI) Exam Narrative: General: Pt is alert awake and in NAD Lungs/Chest: Trachea central Clear BS B/L, No crackles or wheezing. Decreased air movement by later Cardiac: RRR. Normal S1 S2. No murmurs Circulation: Pedal pulses are intact and symmetrical. Abdomen: Normal bowel sounds.. Soft. NT. ND. Extremities: No clubbing, cyanosis or edema. Warm : Jane in place Neurologic: Follows commands. Moves all 4 extremities PERRL AO x3 Skin: No Rash Objective Data Vital Signs Vital Signs: Vital Signs - 24 hr 05/13/24 14:47 05/13/24 14:48 05/13/24 15:02 Temperature 36.6 C Pulse Rate 82 85 Respiratory Rate 24 H 26 H Blood Pressure 182/84 H 172/93 H Pulse Oximetry 96 97 96 Oxygen Delivery Room Air Oxygen Flow Rate Fraction of Inspired Oxygen 05/13/24 15:10 05/13/24 15:15 05/13/24 15:21 Temperature Pulse Rate 79 75 Respiratory Rate 21 H 22 H Blood Pressure Pulse Oximetry 100 Oxygen Delivery BiPAP BiPAP Oxygen Flow Rate Fraction of Inspired Oxygen 05/13/24 15:21 05/13/24 15:35 05/13/24 16:22 Temperature Pulse Rate 80 75 74 Respiratory Rate 26 H 22 H 28 H Blood Pressure 169/89 H 134/79 Pulse Oximetry 100 97 Oxygen Delivery Oxygen Flow Rate Fraction of Inspired Oxygen 05/13/24 17:10 05/13/24 17:10 05/13/24 17:39 Temperature Pulse Rate 74 74 69 Respiratory Rate 30 H 30 H 28 H Blood Pressure 128/70 Pulse Oximetry 99 99 98 Oxygen Delivery BiPAP BiPAP Oxygen Flow Rate Fraction of Inspired Oxygen 40 05/13/24 18:16 05/13/24 18:59 05/13/24 20:00 Temperature Pulse Rate 67 Respiratory Rate 24 H Blood Pressure 122/58 L Pulse Oximetry 99 96 97 Oxygen Delivery Nasal Cannula Nasal Cannula Oxygen Flow Rate 4 4 Fraction of Inspired Oxygen 05/13/24 20:00 05/13/24 20:17 05/13/24 20:44 Temperature 37.3 C Pulse Rate 77 Respiratory Rate Blood Pressure Pulse Oximetry 96 Oxygen Delivery Nasal Cannula Oxygen Flow Rate 4 Fraction of Inspired Oxygen 05/13/24 21:59 05/13/24 22:18 05/13/24 22:25 Temperature Pulse Rate 72 78 71 Respiratory Rate 28 H 25 H Blood Pressure Pulse Oximetry Oxygen Delivery Oxygen Flow Rate Fraction of Inspired Oxygen 05/13/24 22:40 05/14/24 00:00 05/14/24 00:00 Temperature 37.2 C Pulse Rate 86 67 Respiratory Rate 22 H 30 H Blood Pressure 124/54 L Pulse Oximetry 98 96 96 Oxygen Delivery BiPAP BiPAP Oxygen Flow Rate Fraction of Inspired Oxygen 40 05/14/24 00:00 05/14/24 01:49 05/14/24 01:52 Temperature Pulse Rate 65 63 67 Respiratory Rate 32 H 34 H Blood Pressure Pulse Oximetry 95 Oxygen Delivery BiPAP Oxygen Flow Rate Fraction of Inspired Oxygen 05/14/24 01:55 05/14/24 01:56 05/14/24 04:00 Temperature Pulse Rate 65 67 Respiratory Rate 31 H Blood Pressure Pulse Oximetry 95 Oxygen Delivery Nasal Cannula Oxygen Flow Rate 3 Fraction of Inspired Oxygen 05/14/24 04:00 05/14/24 04:00 05/14/24 05:00 Temperature 36.9 C Pulse Rate 73 70 Respiratory Rate 19 Blood Pressure 109/92 H Pulse Oximetry 95 96 Oxygen Delivery Nasal Cannula Oxygen Flow Rate 3 Fraction of Inspired Oxygen 05/14/24 06:00 05/14/24 07:58 05/14/24 07:59 Temperature Pulse Rate 62 64 Respiratory Rate 20 Blood Pressure Pulse Oximetry 93 Oxygen Delivery Nasal Cannula Oxygen Flow Rate 3 Fraction of Inspired Oxygen 05/14/24 08:00 05/14/24 08:10 Temperature 36.4 C L Pulse Rate 86 66 Respiratory Rate 18 30 H Blood Pressure 125/76 Pulse Oximetry 94 Oxygen Delivery Oxygen Flow Rate Fraction of Inspired Oxygen Intake/Output Intake/Output: Intake & Output 05/11/24 05/12/24 05/13/24 05/14/24 23:59 23:59 23:59 23:59 Intake Total 100 880 Output Total 600 625 Balance -500 255 Meds/Results Medications: Active Medications Generic Name Dose Route Start Last Admin Trade Name Freq PRN Reason Stop Dose Admin Acetaminophen 650 mg 05/13/24 22:02 05/14/24 04:04 Acetaminophen 325 Mg Tablet PO 650 mg Q6H PRN Administration Mild Pain (1-3) or Fever Albuterol/Ipratropium 3 ml 05/14/24 02:00 05/14/24 07:56 Ipratropium 0.5 Mg/Albuterol Sulfate 2.5 Mg Ampul.Neb 3 Ml INHALATION 3 ml Q6HRT KAREN Administration Azithromycin 250 mg 05/14/24 09:00 05/14/24 08:52 Azithromycin 250 Mg Tablet PO 05/17/24 09:01 250 mg DAILY KAREN Administration Dextrose 12.5 gm 05/14/24 07:47 Dextrose 50% 25 Gm/50 Ml Syringe IV PUSH PRN PRN Hypoglycemia Protocol Glucagon 1 mg 05/14/24 07:47 Glucagon For Inj 1 Mg Vial IM PRN PRN Hypoglycemia Protocol Glucose 15 gm 05/14/24 07:47 Glucose Oral Gel 15 Gm Of Glucse In 37.5 Gm Tube PO PRN PRN Hypoglycemia Protocol Guaifenesin 1,200 mg 05/13/24 21:00 05/14/24 08:53 Guaifenesin 12 Hr 600 Mg Tabcr PO 1,200 mg Q12HR KAREN Administration Dextrose 1,000 mls @ 100 mls/hr 05/14/24 07:47 Dextrose 5% 1,000 Ml IVPB PRN PRN Hypoglycemia Protocol Insulin Aspart 3 - 6 units 05/14/24 08:00 Insulin Aspart (*Bkc) 100 Units/Ml SUB-Q TIDWM KAREN Protocol Insulin Aspart 1 - 3 units 05/14/24 21:00 Insulin Aspart (*Bkc) 100 Units/Ml SUB-Q HS KAREN Protocol Methylprednisolone Sodium Succinate 60 mg 05/13/24 18:00 05/14/24 06:00 Methylprednisolone Sod Succ 125 Mg Vial IV PUSH 60 mg Q6HR KAREN Administration Oseltamivir Phosphate 75 mg 05/13/24 21:00 05/14/24 08:52 Oseltamivir Phosphate 75 Mg Capsule PO 05/18/24 20:59 75 mg Q12HR KAREN Administration Fluticasone/Salmeterol 2 puff 05/14/24 08:00 05/14/24 07:56 Fluticasone/Salmeterol 115-21 Mcg Inhaler 1 Puff INHALATION 2 puff Q12HRT KAREN Administration Radiology Results: ITS Impressions Chest X-Ray 05/13/24 16:18 IMPRESSION: 1. No acute cardiopulmonary disease. Labs Labs: Laboratory Results - last 24 hr 05/13/24 05/13/24 05/14/24 15:05 15:10 05:12 WBC 6.1 4.5 RBC 5.59 5.02 Hgb 16.3 14.8 Hct 48.5 43.4 MCV 86.8 86.5 MCH 29.2 29.5 MCHC 33.6 34.1 RDW 13.2 12.9 Plt Count 80 L D 80 L MPV 12.4 H 12.2 H Immature Gran % (Auto) Not Reportable Neut % (Auto) Not Reportable Lymph % (Auto) Not Reportable Schleicher % (Auto) Not Reportable Eos % (Auto) Not Reportable Baso % (Auto) Not Reportable Lymph # (Auto) Not Reportable Schleicher # (Auto) Not Reportable Eos # (Auto) Not Reportable Baso # (Auto) Not Reportable Abs Immat Gran (auto) Not Reportable Absolute Neuts (auto) Not Reportable Absolute Nucleated RBC Not Reportable Total Counted 100 Neutrophils % (Manual) 83 H Band Neutrophils % 2 Lymphocytes % (Manual) 7 L Monocytes % (Manual) 8 Eosinophils % (Manual) 0 Basophils % (Manual) 0 Nucleated RBC % Not Reportable Abs Neuts (Manual) 5.18 Abs Lymphs (Manual) 0.42 L Abs Monocytes (Manual) 0.48 Absolute Eos (Manual) 0.00 L Abs Basophils (Manual) 0.00 Platelet Estimate Slightly decreased % Immature Plt Fraction 9.1 8.7 Schistocytes None seen PT 13.9 INR 1.0 APTT 32.1 Puncture Site Right radial ABG pH 7.384 ABG pCO2 42.6 ABG pO2 136.9 H ABG PO2/FiO2 Ratio 3.42 ABG HCO3 24.9 ABG O2 Saturation 98.7 ABG O2 Content 21.9 ABG Base Excess -0.3 A-a Gradient 99.3 Oxyhemoglobin 97.6 Carboxyhemoglobin 0.8 Methemoglobin 0.3 Reduced Hemoglobin 1.3 Total Hemoglobin 15.8 O2 Delivery Device Non-invasive vent O2 Liters/Min Not Reportable Vent Rate 4 FiO2 40 Expiratory Pressure 7 Inspiratory Pressure 14 Sodium 136 L 135 L Potassium 4.2 3.5 Chloride 96 L 98 Carbon Dioxide 29 23 Anion Gap 11 14 H BUN 13 D 20 Creatinine 0.61 L 0.60 L Estim Creat Clear Calc 117 115 Estimated GFR > 60 > 60 Glucose 113 H 205 H Calcium 9.4 8.7 Magnesium 2.0 Total Bilirubin 0.5 AST 35 ALT 23 Alkaline Phosphatase 63 NT-Pro-B Natriuret Pep 372 H Total Protein 8.0 Albumin 4.6 Influenza A (RT-PCR) Positive A Influenza B (RT-PCR) Negative RSV (RT-PCR) Negative SARS-CoV-2 RNA (RT-PCR) Negative Quality VTE Prophylaxis VTE prophylaxis: mechanical ordered
[2024-05-14 10:07] LABS: Hemoglobin A1C 5.9 % (<5.7)
[2024-05-14 17:27] LABS: Glucose Point of Care 178 mg/dl (65-105)
[2024-05-14 20:35] LABS: Glucose Point of Care 163 mg/dl (65-105)
[2024-05-15] VITALS (17 sets, daily range): BP systolic 131–143; BP diastolic 67–85; PULSE 54–75; RESP 18–32; TEMP 36.1–36.6; O2SAT 91–95
[2024-05-15] MEDS: IPRATROPIUM 0.5 MG/ALBUTEROL SULFATE 2.5 MG AMPUL.NEB 3 ML INHALATION ×4 (03:00→19:54)
[2024-05-15 05:59] LABS: Hematocrit 43.1 % (42.0-52.0); Hemoglobin 14.9 g/dL (14.0-18.0); Mean Corpuscular HGB Conc 34.6 g/dl (32-36); Mean Corpuscular Hemoglobin 29.9 pg (26-34); Mean Corpuscular Volume 86.4 fl (80-100); Mean Platelet Volume 12.7 fl (7.4-10.4); Platelet Count Result 102 k/mm3 (150-375); Red Blood Count 4.99 M/mm3 (4.6-6.20); Red Cell Distribution Width 13.2 % (11.5-14.5); White Blood Count 12.6 K/mm3 (4.5-10.0)
[2024-05-15 06:11] LABS: Alanine Aminotransferase 26 U/L (6-50); Albumin Level 3.7 g/dL (3.5-5.1); Alkaline Phosphatase 50 U/L (38-126); Anion Gap 10 mmol/L (4-12); Aspartate Amino Transferase 50 U/L (17-59); Bilirubin,Total 0.3 mg/dL (0.2-1.3); Blood Urea Nitrogen 26 mg/dL (9-20); Calcium 9.1 mg/dL (8.4-10.2); Carbon Dioxide 24 mmol/L (22-30); Chloride 102 mmol/L (98-107); Estimated CRCL calculation 97 ml/min; Estimated Glomerular Filt Rate > 60; Glucose 227 mg/dL (65-110); Magnesium 1.9 mg/dL (1.6-2.3); Potassium 4.6 mmol/L (3.4-5.0); Sodium 136 mmol/L (137-145)
[2024-05-15] MEDS: methylPREDNISolone SOD SUCC 125 MG VIAL 60 MG IV PUSH (06:29)
[2024-05-15] MEDS: FLUTICASONE/SALMETEROL 115-21 MCG INHALER 1 PUFF 2 PUFF INHALATION (07:34)
[2024-05-15 07:35] LABS: Glucose Point of Care 166 mg/dl (65-105)
--- NOTE | 2024-05-15 08:09 | WPDINTPN ---
Progress Note: A&P Assessment and Plan (1) Acute respiratory failure with hypoxia: Code(s): J96.01 - Acute respiratory failure with hypoxia Status: Acute Assessment and Plan: Acute respiratory failure secondary to exacerbation of COPD likely precipitated by influenza A infection Earlier patient was on BiPAP but now clinically improved and down to nasal cannula. Patient was on BiPAP p.r.n. and at night Bronchodilators, Change Solu-Medrol to daily p.o. prednisone taper Change BiPAP to p.r.n. only Continue Tamiflu and isolation Incentive spirometry Continue azithromycin (2) Acute exacerbation of chronic obstructive pulmonary disease: Code(s): J44.1 - Chronic obstructive pulmonary disease with (acute) exacerbation Status: Acute Assessment and Plan: See above (3) Influenza A: Code(s): J10.1 - Influenza due to other identified influenza virus with other respiratory manifestations Status: Acute Assessment and Plan: See above (4) Thrombocytopenia: Code(s): D69.6 - Thrombocytopenia, unspecified Status: Acute Assessment and Plan: Could be secondary to viral infection and drug use Improving. Monitor at this time Hold Lovenox (5) Tobacco dependence: Code(s): F17.200 - Nicotine dependence, unspecified, uncomplicated Status: Acute Assessment and Plan: Patient was counseled and encouraged to quit smoking (6) Polysubstance abuse: Code(s): F19.10 - Other psychoactive substance abuse, uncomplicated Status: Acute Assessment and Plan: Patient was counseled to quit abusing tried (7) Hyperglycemia: Code(s): R73.9 - Hyperglycemia, unspecified Status: Acute Assessment and Plan: Likely secondary to steroids, add sliding scale insulin for monitoring and treatment (8) Electrolyte abnormality: Code(s): E87.8 - Other disorders of electrolyte and fluid balance, not elsewhere classified Status: Acute Assessment and Plan: Potassium improved after placement (9) Hypertension: Code(s): I10 - Essential (primary) hypertension Status: Acute Assessment and Plan: Patient has history of hypertension in the record but is not currently on any medication as an outpatient Current blood pressure elevation could be secondary to respiratory distress. Add p.r.n. hydralazine and if blood pressure consistently elevated will add antihypertensive medication Plan DVT prophylaxis -SCD due to thrombocytopenia. Nutrition -diet ordered Code Status - Full Code Downgrade to med tele PT OT Up in chair Incentive spirometry, wean oxygen Subjective Date/time seen: 05/15/24 He states he feels significantly better overall. His breathing is better. He still has cough which is productive but it has improved he denies any fever. No chest pain abdominal pain nausea vomiting diarrhea. All other systems were reviewed and were negative. He wore BiPAP for only few hours. He states it was boiling his sleep added kept on disconnecting. He does not believe he needs BiPAP at this time. He states his oxygen is better. He is currently on 2 L nasal cannula is sitting at bedside and eating his breakfast. No respiratory distress. Sinus rhythm on the monitor. Review of Systems Review of Systems: All systems reviewed & are unremarkable except as noted in HPI and below (HPI) Exam Narrative: General: Pt is alert awake and in NAD Lungs/Chest: Trachea central Clear BS B/L, No crackles or wheezing. Decreased air movement by later Cardiac: RRR. Normal S1 S2. No murmurs Circulation: Pedal pulses are intact and symmetrical. Abdomen: Normal bowel sounds.. Soft. NT. ND. Extremities: No clubbing, cyanosis or edema. Warm : Jane in place Neurologic: Follows commands. Moves all 4 extremities PERRL AO x3 Skin: No Rash Objective Data Vital Signs Vital Signs: Vital Signs - 24 hr 05/14/24 08:10 05/14/24 11:47 05/14/24 11:47 Temperature Pulse Rate 66 66 66 Respiratory Rate 30 H 30 H Blood Pressure Pulse Oximetry 94 Oxygen Delivery Nasal Cannula Oxygen Flow Rate 3 Fraction of Inspired Oxygen 40 05/14/24 12:00 05/14/24 13:55 05/14/24 14:00 Temperature 36.6 C Pulse Rate 67 70 69 Respiratory Rate 28 H 22 H Blood Pressure 131/81 Pulse Oximetry 94 Oxygen Delivery Oxygen Flow Rate Fraction of Inspired Oxygen 05/14/24 14:07 05/14/24 16:00 05/14/24 16:00 Temperature 36.9 C Pulse Rate 91 67 68 Respiratory Rate 23 H 28 H Blood Pressure 138/82 Pulse Oximetry 95 Oxygen Delivery Oxygen Flow Rate Fraction of Inspired Oxygen 05/14/24 16:00 05/14/24 17:21 05/14/24 20:00 Temperature Pulse Rate 67 69 Respiratory Rate 28 H Blood Pressure Pulse Oximetry 95 93 Oxygen Delivery Nasal Cannula Nasal Cannula Oxygen Flow Rate 3 2 Fraction of Inspired Oxygen 40 05/14/24 20:00 05/14/24 20:12 05/14/24 20:37 Temperature 36.8 C Pulse Rate 69 61 66 Respiratory Rate 25 H 20 Blood Pressure 138/78 Pulse Oximetry 93 Oxygen Delivery Oxygen Flow Rate Fraction of Inspired Oxygen 05/14/24 20:50 05/14/24 22:00 05/14/24 23:11 Temperature 36.5 C Pulse Rate 68 62 80 Respiratory Rate 20 19 Blood Pressure 133/72 Pulse Oximetry 95 Oxygen Delivery Oxygen Flow Rate Fraction of Inspired Oxygen 05/15/24 00:00 05/15/24 00:00 05/15/24 02:00 Temperature Pulse Rate 60 57 L Respiratory Rate Blood Pressure Pulse Oximetry 95 Oxygen Delivery Nasal Cannula Oxygen Flow Rate 2 Fraction of Inspired Oxygen 05/15/24 03:02 05/15/24 03:16 05/15/24 03:33 Temperature Pulse Rate 54 L 55 L Respiratory Rate 20 20 Blood Pressure Pulse Oximetry 92 Oxygen Delivery Nasal Cannula Oxygen Flow Rate 2 Fraction of Inspired Oxygen 05/15/24 04:00 05/15/24 04:11 05/15/24 06:00 Temperature 36.1 C L Pulse Rate 58 L 62 56 L Respiratory Rate 20 Blood Pressure 134/85 Pulse Oximetry 91 Oxygen Delivery Oxygen Flow Rate Fraction of Inspired Oxygen Intake/Output Intake/Output: Intake & Output 05/12/24 05/13/24 05/14/24 05/15/24 23:59 23:59 23:59 23:59 Intake Total 100 1520 300 Output Total 600 1225 500 Balance -500 295 -200 Meds/Results Medications: Active Medications Generic Name Dose Route Start Last Admin Trade Name Jose Raulq PRN Reason Stop Dose Admin Acetaminophen 650 mg 05/13/24 22:02 05/14/24 20:27 Acetaminophen 325 Mg Tablet PO 650 mg Q6H PRN Administration Mild Pain (1-3) or Fever Albuterol/Ipratropium 3 ml 05/14/24 02:00 05/15/24 07:34 Ipratropium 0.5 Mg/Albuterol Sulfate 2.5 Mg Ampul.Neb 3 Ml INHALATION 3 ml Q6HRT KAREN Administration Azithromycin 250 mg 05/14/24 09:00 05/14/24 08:52 Azithromycin 250 Mg Tablet PO 05/17/24 09:01 250 mg DAILY KAREN Administration Dextrose 12.5 gm 05/14/24 07:47 Dextrose 50% 25 Gm/50 Ml Syringe IV PUSH PRN PRN Hypoglycemia Protocol Glucagon 1 mg 05/14/24 07:47 Glucagon For Inj 1 Mg Vial IM PRN PRN Hypoglycemia Protocol Glucose 15 gm 05/14/24 07:47 Glucose Oral Gel 15 Gm Of Glucse In 37.5 Gm Tube PO PRN PRN Hypoglycemia Protocol Guaifenesin 1,200 mg 05/13/24 21:00 05/14/24 20:28 Guaifenesin 12 Hr 600 Mg Tabcr PO 1,200 mg Q12HR KAREN Administration Hydralazine HCl 20 mg 05/14/24 09:32 Hydralazine Hcl 20 Mg/Ml Vial IV PUSH Q4H PRN SBP more than 160 Dextrose 1,000 mls @ 100 mls/hr 05/14/24 07:47 Dextrose 5% 1,000 Ml IVPB PRN PRN Hypoglycemia Protocol Insulin Aspart 3 - 6 units 05/14/24 08:00 05/15/24 07:58 Insulin Aspart (*Bkc) 100 Units/Ml SUB-Q Not Given TIDWM KAREN Protocol Insulin Aspart 1 - 3 units 05/14/24 21:00 05/14/24 20:29 Insulin Aspart (*Bkc) 100 Units/Ml SUB-Q Not Given HS KAREN Protocol Methylprednisolone Sodium Succinate 60 mg 05/13/24 18:00 05/15/24 06:29 Methylprednisolone Sod Succ 125 Mg Vial IV PUSH 60 mg Q6HR KAREN Administration Oseltamivir Phosphate 75 mg 05/13/24 21:00 05/14/24 20:28 Oseltamivir Phosphate 75 Mg Capsule PO 05/18/24 20:59 75 mg Q12HR KAREN Administration Fluticasone/Salmeterol 2 puff 05/14/24 08:00 05/15/24 07:34 Fluticasone/Salmeterol 115-21 Mcg Inhaler 1 Puff INHALATION 2 puff Q12HRT KAREN Administration Radiology Results: ITS Impressions Chest X-Ray 05/13/24 16:18 IMPRESSION: 1. No acute cardiopulmonary disease. Labs Labs: Laboratory Results - last 24 hr 05/14/24 05/14/24 05/14/24 05:12 17:25 20:23 WBC RBC Hgb Hct MCV MCH MCHC RDW Plt Count MPV Sodium Potassium Chloride Carbon Dioxide Anion Gap BUN Creatinine Estim Creat Clear Calc Estimated GFR Glucose POC Capillary Glucose 178 H 163 H Hemoglobin A1c 5.9 H Calcium Magnesium Total Bilirubin AST ALT Alkaline Phosphatase Total Protein Albumin 05/15/24 05/15/24 05:43 07:28 WBC 12.6 H RBC 4.99 Hgb 14.9 Hct 43.1 MCV 86.4 MCH 29.9 MCHC 34.6 RDW 13.2 Plt Count 102 L MPV 12.7 H Sodium 136 L Potassium 4.6 Chloride 102 Carbon Dioxide 24 Anion Gap 10 BUN 26 H Creatinine 0.72 Estim Creat Clear Calc 97 Estimated GFR > 60 Glucose 227 H POC Capillary Glucose 166 H Hemoglobin A1c Calcium 9.1 Magnesium 1.9 Total Bilirubin 0.3 AST 50 ALT 26 Alkaline Phosphatase 50 Total Protein 6.0 L Albumin 3.7 Quality VTE Prophylaxis VTE prophylaxis: mechanical ordered
[2024-05-15] MEDS: AZITHROMYCIN 250 MG TABLET PO (08:57)
[2024-05-15] MEDS: ACETAMINOPHEN 325 MG TABLET 650 MG PO (08:57)
[2024-05-15] MEDS: OSELTAMIVIR PHOSPHATE 75 MG CAPSULE PO ×2 (08:57→21:15)
[2024-05-15] MEDS: guaiFENesin 12 HR 600 MG TABCR 1200 MG PO ×2 (08:57→21:15)
[2024-05-15] MEDS: NICOTINE (*PBKC) 14 MG PATCH 1 PATCH TRANSDERM (09:10)
[2024-05-15 11:33] LABS: Glucose Point of Care 143 mg/dl (65-105)
[2024-05-15 16:51] LABS: Glucose Point of Care 126 mg/dl (65-105)
--- NOTE | 2024-05-15 17:37 | PC.NURSE ---
This patient, Tenzin Vitale, was received from ICU5 on 05/15/24 at 1730. Patient/family oriented to unit policies and routines. report from [facility]
[2024-05-15 21:10] LABS: Glucose Point of Care 133 mg/dl (65-105)
[2024-05-16 01:56] VITALS: PULSE 70; RESP 15
[2024-05-16] MEDS: IPRATROPIUM 0.5 MG/ALBUTEROL SULFATE 2.5 MG AMPUL.NEB 3 ML INHALATION ×3 (01:56→14:01)
[2024-05-16 02:04] VITALS: PULSE 77; RESP 15
[2024-05-16 05:51] VITALS: BP 137/77; PULSE 61; RESP 18; TEMP 36.6; O2SAT 94
[2024-05-16 06:53] LABS: Hematocrit 43.3 % (42.0-52.0); Hemoglobin 14.6 g/dL (14.0-18.0); Mean Corpuscular HGB Conc 33.7 g/dl (32-36); Mean Corpuscular Hemoglobin 29.3 pg (26-34); Mean Corpuscular Volume 86.8 fl (80-100); Mean Platelet Volume 12.2 fl (7.4-10.4); Platelet Count Result 117 k/mm3 (150-375); Red Blood Count 4.99 M/mm3 (4.6-6.20); Red Cell Distribution Width 13.4 % (11.5-14.5); White Blood Count 9.2 K/mm3 (4.5-10.0)
[2024-05-16 07:07] LABS: Alanine Aminotransferase 95 U/L (6-50); Albumin Level 3.5 g/dL (3.5-5.1); Alkaline Phosphatase 50 U/L (38-126); Anion Gap 6 mmol/L (4-12); Aspartate Amino Transferase 88 U/L (17-59); Bilirubin,Total 0.5 mg/dL (0.2-1.3); Blood Urea Nitrogen 24 mg/dL (9-20); Calcium 8.9 mg/dL (8.4-10.2); Carbon Dioxide 29 mmol/L (22-30); Chloride 104 mmol/L (98-107); Estimated CRCL calculation 99 ml/min; Estimated Glomerular Filt Rate > 60; Glucose 143 mg/dL (65-110); Magnesium 1.8 mg/dL (1.6-2.3); Potassium 3.6 mmol/L (3.4-5.0); Sodium 139 mmol/L (137-145)
--- NOTE | 2024-05-16 07:43 | PM.IMPN ---
Progress Note: A&P Assessment and Plan (1) Acute respiratory failure with hypoxia: Code(s): J96.01 - Acute respiratory failure with hypoxia Status: Acute Assessment and Plan: Acute respiratory failure secondary to exacerbation of COPD likely precipitated by influenza A infection Earlier patient was on BiPAP but now clinically improved and down to nasal cannula. Patient was on BiPAP p.r.n. and at night Bronchodilators, Change Solu-Medrol to daily p.o. prednisone taper Change BiPAP to p.r.n. only Continue Tamiflu and isolation Incentive spirometry Continue azithromycin (2) Acute exacerbation of chronic obstructive pulmonary disease: Code(s): J44.1 - Chronic obstructive pulmonary disease with (acute) exacerbation Status: Acute Assessment and Plan: See above (3) Influenza A: Code(s): J10.1 - Influenza due to other identified influenza virus with other respiratory manifestations Status: Acute Assessment and Plan: See above (4) Thrombocytopenia: Code(s): D69.6 - Thrombocytopenia, unspecified Status: Acute Assessment and Plan: Could be secondary to viral infection and drug use Improving. Monitor at this time OP follow up with Hem/Onc Do not recommend PLT ab measurement If AC necessary will consider Argatroban Hold Lovenox (5) Tobacco dependence: Code(s): F17.200 - Nicotine dependence, unspecified, uncomplicated Status: Acute Assessment and Plan: Patient was counseled and encouraged to quit smoking (6) Polysubstance abuse: Code(s): F19.10 - Other psychoactive substance abuse, uncomplicated Status: Acute Assessment and Plan: Patient was counseled to quit abusing tried (7) Hyperglycemia: Code(s): R73.9 - Hyperglycemia, unspecified Status: Acute Assessment and Plan: Likely secondary to steroids, add sliding scale insulin for monitoring and treatment (8) Electrolyte abnormality: Code(s): E87.8 - Other disorders of electrolyte and fluid balance, not elsewhere classified Status: Acute Assessment and Plan: Potassium improved after placement (9) Hypertension: Code(s): I10 - Essential (primary) hypertension Status: Acute Assessment and Plan: Patient has history of hypertension in the record but is not currently on any medication as an outpatient Current blood pressure elevation could be secondary to respiratory distress. Add p.r.n. hydralazine and if blood pressure consistently elevated will add antihypertensive medication Plan DVT prophylaxis -SCD due to thrombocytopenia. Nutrition -diet ordered Code Status - Full Code Downgrade to med tele PT OT Up in chair Incentive spirometry, wean oxygen Subjective Date/time seen: 05/16/24 07:43 Interval history: Patient has past medical history of COPD currently are admitted due to exacerbation possibly due to influenza A.Off note patient has low platelet. Will monitor for bleeding. Review of Systems Review of Systems: 12 systems were reviewed and are negative except for as per HPI. All systems reviewed & are unremarkable except as noted in HPI and below (HPI) Exam Narrative: General: Pt is alert awake and in NAD Lungs/Chest: Trachea central Clear BS B/L, No crackles or wheezing. Decreased air movement by later Cardiac: RRR. Normal S1 S2. No murmurs Circulation: Pedal pulses are intact and symmetrical. Abdomen: Normal bowel sounds.. Soft. NT. ND. Extremities: No clubbing, cyanosis or edema. Warm : Jane in place Neurologic: Follows commands. Moves all 4 extremities PERRL AO x3 Skin: No Rash Objective Data Vital Signs Vital Signs: Vital Signs - 24 hr 05/15/24 07:45 05/15/24 08:00 05/15/24 08:00 Temperature 97.6 F Pulse Rate 72 62 Respiratory Rate 20 32 H Blood Pressure 131/67 Pulse Oximetry 94 94 Oxygen Delivery Nasal Cannula Oxygen Flow Rate 2 05/15/24 08:00 05/15/24 13:15 05/15/24 13:25 Temperature Pulse Rate 63 75 74 Respiratory Rate 18 20 Blood Pressure Pulse Oximetry Oxygen Delivery Oxygen Flow Rate 05/15/24 16:00 05/15/24 19:54 05/15/24 19:54 Temperature 97.5 F L Pulse Rate 65 70 Respiratory Rate 23 H 18 Blood Pressure 137/70 Pulse Oximetry 94 94 Oxygen Delivery Room Air Oxygen Flow Rate 05/15/24 19:59 05/15/24 21:23 05/16/24 01:56 Temperature 97.9 F Pulse Rate 71 63 70 Respiratory Rate 18 18 15 Blood Pressure 143/78 H Pulse Oximetry 95 Oxygen Delivery Oxygen Flow Rate 05/16/24 02:04 05/16/24 05:51 Temperature 97.8 F Pulse Rate 77 61 Respiratory Rate 15 18 Blood Pressure 137/77 Pulse Oximetry 94 Oxygen Delivery Oxygen Flow Rate Intake/Output Intake/Output: Intake & Output 01/31/05/14/24 05/15/24 05/16/24 23:59 23:59 23:59 23:59 Intake Total 100 1520 1640 300 Output Total 600 1225 500 Balance -545 632 3063 300 Meds/Results Medications: Active Medications Generic Name Dose Route Start Last Admin Trade Name Freq PRN Reason Stop Dose Admin Acetaminophen 650 mg 05/13/24 22:02 05/15/24 08:57 Acetaminophen 325 Mg Tablet PO 650 mg Q6H PRN Administration Mild Pain (1-3) or Fever Albuterol/Ipratropium 3 ml 05/14/24 02:00 05/16/24 01:56 Ipratropium 0.5 Mg/Albuterol Sulfate 2.5 Mg Ampul.Neb 3 Ml INHALATION 3 ml Q6HRT KAREN Administration Azithromycin 250 mg 05/14/24 09:00 05/15/24 08:57 Azithromycin 250 Mg Tablet PO 05/17/24 09:01 250 mg DAILY KAREN Administration Benzocaine 1 lozenge 05/15/24 14:32 Benzocaine/Menthol (*Bkc) 18 Ea Lozenge PO PRN PRN Sore Throat Dextrose 12.5 gm 05/14/24 07:47 Dextrose 50% 25 Gm/50 Ml Syringe IV PUSH PRN PRN Hypoglycemia Protocol Glucagon 1 mg 05/14/24 07:47 Glucagon For Inj 1 Mg Vial IM PRN PRN Hypoglycemia Protocol Glucose 15 gm 05/14/24 07:47 Glucose Oral Gel 15 Gm Of Glucse In 37.5 Gm Tube PO PRN PRN Hypoglycemia Protocol Guaifenesin 1,200 mg 05/13/24 21:00 05/15/24 21:15 Guaifenesin 12 Hr 600 Mg Tabcr PO 1,200 mg Q12HR KAREN Administration Hydralazine HCl 20 mg 05/14/24 09:32 Hydralazine Hcl 20 Mg/Ml Vial IV PUSH Q4H PRN SBP more than 160 Dextrose 1,000 mls @ 100 mls/hr 05/14/24 07:47 Dextrose 5% 1,000 Ml IVPB PRN PRN Hypoglycemia Protocol Insulin Aspart 3 - 6 units 05/14/24 08:00 05/15/24 16:43 Insulin Aspart (*Bkc) 100 Units/Ml SUB-Q Not Given TIDWM KAREN Protocol Insulin Aspart 1 - 3 units 05/14/24 21:00 05/15/24 21:14 Insulin Aspart (*Bkc) 100 Units/Ml SUB-Q Not Given HS [facility] Protocol Nicotine 1 patch 05/15/24 09:00 05/15/24 09:10 Nicotine (*Pbkc) 14 Mg Patch TRANSDERM 1 patch DAILY KAREN Administration Oseltamivir Phosphate 75 mg 05/13/24 21:00 05/15/24 21:15 Oseltamivir Phosphate 75 Mg Capsule PO 05/18/24 20:59 75 mg Q12HR KAREN Administration Prednisone 40 mg 05/16/24 08:00 Prednisone 20 Mg Tablet PO 05/18/24 08:01 DAILY@0800 [facility] Prednisone 30 mg 05/19/24 08:00 Prednisone 10 Mg Tablet PO 05/21/24 08:01 DAILY@0800 [facility] Prednisone 20 mg 05/22/24 08:00 Prednisone 20 Mg Tablet PO 05/24/24 08:01 DAILY@0800 [facility] Prednisone 10 mg 05/25/24 08:00 Prednisone 10 Mg Tablet PO 05/27/24 08:01 DAILY@0800 [facility] Fluticasone/Salmeterol 2 puff 05/14/24 08:00 05/15/24 07:34 Fluticasone/Salmeterol 115-21 Mcg Inhaler 1 Puff INHALATION 2 puff Q12HRT KAREN Administration Radiology Results: ITS Impressions Chest X-Ray 05/13/24 16:18 IMPRESSION: 1. No acute cardiopulmonary disease. Labs Labs: Laboratory Results - last 24 hr 05/15/24 05/15/24 05/15/24 11:21 16:43 21:06 WBC RBC Hgb Hct MCV MCH MCHC RDW Plt Count MPV Sodium Potassium Chloride Carbon Dioxide Anion Gap BUN Creatinine Estim Creat Clear Calc Estimated GFR Glucose POC Capillary Glucose 143 H 126 H 133 H Calcium Magnesium Total Bilirubin AST ALT Alkaline Phosphatase Total Protein Albumin 05/16/24 05:57 WBC 9.2 RBC 4.99 Hgb 14.6 Hct 43.3 MCV 86.8 MCH 29.3 MCHC 33.7 RDW 13.4 Plt Count 117 L MPV 12.2 H Sodium 139 Potassium 3.6 Chloride 104 Carbon Dioxide 29 Anion Gap 6 BUN 24 H Creatinine 0.71 Estim Creat Clear Calc 99 Estimated GFR > 60 Glucose 143 H POC Capillary Glucose Calcium 8.9 Magnesium 1.8 Total Bilirubin 0.5 AST 88 H ALT 95 H Alkaline Phosphatase 50 Total Protein 6.0 L Albumin 3.5 Quality VTE Prophylaxis VTE prophylaxis: mechanical ordered Hospitalist MIPS Advance Care Plan I have confirmed that the patient's Advanced Care Plan is present, code status is documented, or surrogate decision maker is listed in patient medical record.: Yes Medication Reconciliation I have utilized all available resources to obtain, update and review the patients current medications (includes all prescriptions, OTC, herbals, cannabis, and nutritional supplements).: Yes
[2024-05-16] MEDS: FLUTICASONE/SALMETEROL 115-21 MCG INHALER 1 PUFF 2 PUFF INHALATION (07:50)
[2024-05-16 07:55] VITALS: PULSE 81; RESP 20; O2SAT 97
[2024-05-16 08:00] VITALS: O2SAT 97
[2024-05-16 08:03] LABS: Glucose Point of Care 116 mg/dl (65-105)
[2024-05-16] MEDS: AZITHROMYCIN 250 MG TABLET PO (08:24)
[2024-05-16] MEDS: OSELTAMIVIR PHOSPHATE 75 MG CAPSULE PO (08:24)
[2024-05-16] MEDS: predniSONE 20 MG TABLET 40 MG PO (08:24)
[2024-05-16] MEDS: guaiFENesin 12 HR 600 MG TABCR 1200 MG PO (08:24)
[2024-05-16] MEDS: NICOTINE (*PBKC) 14 MG PATCH 1 PATCH TRANSDERM (08:28)
[2024-05-16 11:57] LABS: Glucose Point of Care 135 mg/dl (65-105)
[2024-05-16 14:03] VITALS: PULSE 84; RESP 20
--- NOTE | 2024-05-16 14:26 | P.DS_ITS ---
DS: Admitting Diagnosis Discharge Date 05/16/2024 Admitting Diagnosis Shortness of breath. DS: Discharge Diagnosis Discharge Diagnosis (1) Acute respiratory failure with hypoxia: Code(s): J96.01 - Acute respiratory failure with hypoxia Status: Acute Assessment and Plan: Acute respiratory failure secondary to exacerbation of COPD likely precipitated by influenza A infection Earlier patient was on BiPAP but now clinically improved and down to room air p.o. prednisone taper Continue Tamiflu Incentive spirometry Continue azithromycin (2) Acute exacerbation of chronic obstructive pulmonary disease: Code(s): J44.1 - Chronic obstructive pulmonary disease with (acute) exacerbation Status: Acute Assessment and Plan: Advised on smoking cessation (3) Influenza A: Code(s): J10.1 - Influenza due to other identified influenza virus with other respiratory manifestations Status: Acute Assessment and Plan: Continue time (4) Thrombocytopenia: Code(s): D69.6 - Thrombocytopenia, unspecified Status: Acute Assessment and Plan: Could be secondary to viral infection and drug use Improving. Monitor at this time OP follow up with Hem/Onc Do not recommend PLT ab measurement If AC necessary will consider Argatroban Hold Lovenox Follow up as OP Hem/Onc (5) Tobacco dependence: Code(s): F17.200 - Nicotine dependence, unspecified, uncomplicated Status: Acute Assessment and Plan: Patient was counseled and encouraged to quit smoking (6) Polysubstance abuse: Code(s): F19.10 - Other psychoactive substance abuse, uncomplicated Status: Acute Assessment and Plan: Patient was counseled to quit (7) Hyperglycemia: Code(s): R73.9 - Hyperglycemia, unspecified Status: Acute Assessment and Plan: Likely secondary to steroids (8) Electrolyte abnormality: Code(s): E87.8 - Other disorders of electrolyte and fluid balance, not elsewhere classified Status: Acute Assessment and Plan: Resolved (9) Hypertension: Code(s): I10 - Essential (primary) hypertension Status: Acute Assessment and Plan: Patient has history of hypertension in the record but is not currently on any medication as an outpatient Current blood pressure elevation could be secondary to respiratory distress. Management as per primary care physician as outpatient DS: Summary Hospital Course Hospital Course: 58-year-old male smoker with chronic obstructive pulmonary disease, hypertension, hyperlipidemia, and illicit substance use who presented to the emergency department via private vehicle for evaluation of shortness of breath. The patient provides the following history. He has not been feeling well for the last 2 days with symptoms to include subjective fever, body aches, cough, shortness of breath, and difficulties getting in a deep breath. He has also had nausea and some diarrhea. Shortness of breath has gotten worse throughout the course of the day and on presentation tree triage she was in moderate respiratory distress with significant wheezing and diminished lung sounds. He is unaware of any sick contacts and denies syncope, near syncope, sinus congestion, sore throat, exertional chest pain, pleuritic pain, orthopnea, paroxysmal nocturnal dyspnea, edema, and calf pain. In the ED: He presented to triage with moderate work of breathing and significantly diminished lung sounds and wheezing. He was administered a nebulizer, steroids, and magnesium sulfate and was placed on BiPAP with impro vement. He has been afebrile since arrival with stable blood pressures. Labs are significant for a WBC count of 6.1, hemoglobin 16.3, platelet 80, sodium 136, chloride 96, BUN 13, creatinine 0.61, glucose 113, proBNP 372. He tested positive for influenza A. Chest x-ray showed no acute findings. He has been started on oseltamivir and is being admitted in this setting for further treatment. I assumed care on 05/16/2024: Patient reported his currently doing well. Patient currently on room air. Patient reports that he is a long-term smoker but never officially diagnosed COPD. Is possible exacerbation of COPD likely precipitated by influenza a infection. Patient is discharged with the following instruction: Patient needs help on smoking cessation .Please take your PCP. Please take Prednisone 40mg PO x3 days, 30mg PO x 3 days,20mg PO x 3 days,10mg PO x 3days. Please finish Azithromycin 250 mg PO QD until tomorrow. Please finish Tamiflu 2 times a day until 05/18/2024. Check blood pressure 1 to 2 times a day. Record and bring into your doctor for review. Call your doctor if your blood pressure is greater than 180/110 or less than 90/45. Walk with cane or other assist device. Take precautions to avoid falls. Rise slowly from a lying or sitting position. Pause before standing or walking. Contact your doctor or call 911 and come to the Emergency Room if you have any type of trauma, lightheadedness with standing or other worrisome symptoms. Avoid NSAIDs (ibuprofen, naproxen, Aleve). Tylenol is safe to take. Follow-up with your primary care provider in 1-2 weeks. Please call for appointment. Follow-up with Pulmonology in 2-4 weeks. Please call for an appointment. Thank you for using [facility] for your health care needs. Status at Discharge Cognitive/behavioral status at discharge: Stable Time Spent with Patient Time attestation: Total time spent providing and/or coordinating discharge services: 45 minutes Exam Narrative: General: Pt is alert awake and in NAD Lungs/Chest: Trachea central Clear BS B/L, No crackles or wheezing. Decreased air movement by later Cardiac: RRR. Normal S1 S2. No murmurs Circulation: Pedal pulses are intact and symmetrical. Abdomen: Normal bowel sounds.. Soft. NT. ND. Extremities: No clubbing, cyanosis or edema. Warm : Jane in place Neurologic: Follows commands. Moves all 4 extremities PERRL AO x3 Skin: No Rash DS: Data Data Completed and Pending Labs on day of discharge: Labs from last 24 hours 05/16/24 05/16/24 05/16/24 11:38 07:55 05:57 WBC 9.2 RBC 4.99 Hgb 14.6 Hct 43.3 MCV 86.8 MCH 29.3 MCHC 33.7 RDW 13.4 Plt Count 117 L MPV 12.2 H Sodium 139 Potassium 3.6 Chloride 104 Carbon Dioxide 29 Anion Gap 6 BUN 24 H Creatinine 0.71 Estim Creat Clear Calc 99 Estimated GFR > 60 Glucose 143 H POC Capillary Glucose 135 H 116 H Calcium 8.9 Magnesium 1.8 Total Bilirubin 0.5 AST 88 H ALT 95 H Alkaline Phosphatase 50 Total Protein 6.0 L Albumin 3.5 05/15/24 05/15/24 21:06 16:43 WBC RBC Hgb Hct MCV MCH MCHC RDW Plt Count MPV Sodium Potassium Chloride Carbon Dioxide Anion Gap BUN Creatinine Estim Creat Clear Calc Estimated GFR Glucose POC Capillary Glucose 133 H 126 H Calcium Magnesium Total Bilirubin AST ALT Alkaline Phosphatase Total Protein Albumin Preliminary micro results at discharge 05/13/24 15:13 Blood Culture - Preliminary Blood 05/13/24 15:32 Blood Culture - Preliminary Blood Discharge Plan Discharge Attending physician on discharge: Chris Mueller Discharging Clinician: Chris Mueller Anticipated Discharge Date/Time: 05/16/24 14:12 Patient Disposition: Home, Self-Care Activity: as tolerated Diet: heart healthy Discharge Instructions: Patient needs help on smoking cessation .Please take your PCP. Please take Prednisone 40mg PO x3 days, 30mg PO x 3 days,20mg PO x 3 days,10mg PO x 3days. Please finish Azithromycin 250 mg PO QD until tomorrow. Please finish Tamiflu 2 times a day until 05/18/2024. Check blood pressure 1 to 2 times a day. Record and bring into your doctor for review. Call your doctor if your blood pressure is greater than 180/110 or less than 90/45. Walk with cane or other assist device. Take precautions to avoid falls. Rise slowly from a lying or sitting position. Pause before standing or walking. Contact your doctor or call 911 and come to the Emergency Room if you have any type of trauma, lightheadedness with standing or other worrisome symptoms. Avoid NSAIDs (ibuprofen, naproxen, Aleve). Tylenol is safe to take. Follow-up with your primary care provider in 1-2 weeks. Please call for appointment. Follow-up with Pulmonology and Hem/Onc in 2-4 weeks. Please call for an appointment. Thank you for using [facility] for your health care needs. Patient Instructions: Antibiotic Form, Oseltamivir (By mouth), How to Stop Smoking (DC), Flu Shot (Vaccine) for Adults (DC) Patient Language: Occitan Stand Alone Forms: General Discharge Information Follow-up/Referrals: Dalton Jose MD [Physician] - (Thrombocytopenia) Som Nelson MD [Primary Care Provider] - Discharge Medications: New azithromycin [Zithromax] 250 mg Tablet 250 mg PO DAILY Qty: 3 0RF oseltamivir [Tamiflu] 75 mg Capsule 75 mg PO Q12HR Qty: 10 0RF prednisone 10 mg tablet 10 mg PO DIRECTED Qty: 30 0RF Rx Instructions: see taper instructions Please take 40mg PO x3 days, 30mg PO x 3 days,20mg PO x 3 days,10mg PO x 3days Continued hydrocodone-acetaminophen 5-325 mg tablet 1 tablet PO Q4H PRN (Reason: pain) Qty: 5 0RF guaifenesin [Mucus Relief ER] 600 mg Tablet Extended Release 12hr 600 mg PO Q12HR Qty: 14 0RF (DME) Aeroneb Go Nebulizer Misc See Rx Instructions .Route Qty: 1 0RF Rx Instructions: As directed albuterol sulfate 2.5 mg /3 mL (0.083 %) solution for nebulization 2.5 mg inhalation Q6H PRN (Reason: shortness of breath or wheezing) Qty: 75 1RF albuterol sulfate [Ventolin HFA] 90 mcg/actuation HFA aerosol inhaler 1 inh INHALATION Q6H PRN (Reason: Shortness Of Breath Or Wheezing) Qty: 8.5 1RF Rx Instructions: 4 x per day budesonide-formoterol [Symbicort] 160-4.5 mcg/actuation HFA aerosol inhaler 2 puff inhalation Q12H Qty: 10.2 2RF Rx Instructions: INHALE 2 PUFFS EVERY 12 HOURS Date of admission: 05/13/24 17:51 Primary Care Provider: Som Nelson Admitting Provider: Chris Mueller Attending physician on admission: Chris Mueller Condition: Stable
[2024-05-16] MEDS: INFLUENZA TRIVALENT VACCINE 45 MCG/0.5 ML SYRINGE IM (14:41)
== END 2024-05-16 14:46 | disposition home or self-care (01) | DRG 113 ==
LOC: ANHED 15:38 → ANHIMU 17:23 → ANHICU 18:05 → ANH3MEDSUR 05-15 17:27
PROVIDERS: Internal Medicine; Physician Assistant; Admitting Provider General Practice; Emergency Provider Emergency Medicine; PCP Family Medicine; Visit Provider General Practice
DX: J10.1 Influenza due to other identified influenza virus with other respiratory manifestations (principal); J44.1 Chronic obstructive pulmonary disease with (acute) exacerbation; J96.01 Acute respiratory failure with hypoxia; D69.6 Thrombocytopenia, unspecified; E78.5 Hyperlipidemia, unspecified; F17.210 Nicotine dependence, cigarettes, uncomplicated; F41.9 Anxiety disorder, unspecified; F32.A Depression, unspecified; F19.10 Other psychoactive substance abuse, uncomplicated; I10 Essential (primary) hypertension; R73.9 Hyperglycemia, unspecified; Z23 Encounter for immunization; Z20.822 Contact with and (suspected) exposure to COVID-19
CPT/HCPCS: 36415; 36600; 71045; 80048; 80053; 82375; 82805; 82948; 83036; 83050; 83735; 83880; 85018; 85025; 85027; 85055; 85610; 85730; 87040; 87637; 90471; 90656; 93005; 94640; 94667; 96365; 96375; 99285; A9270; G0008; G0378; J1815; J2919; J3475; J7512